=== PATIENT | male | born 1945 | race African-American/Black ===

== ENCOUNTER 2016-08-02 16:10 | Inpatient (IN) ==
[2016-08-02 16:50] LABS: Basophils % 0.5 % (0.0-0.8); Hemoglobin 12.2 GM/DL (14.0-18.0); Immature Granulocytes % 0.2 %; Immature Granulocytes Absolute 0.01 #; Lymphocytes # 0.9 10*3/uL (1.4-4.0); Lymphocytes % 23.1 % (21.2-54.2); Mean Corpuscular Hemoglobin 27 PG (27-34); Mean Corpuscular Volume 83.1 FL (87-102); Mean Platelet Volume 11.6 FL (9.6-12.0); Monocytes # 0.5 10*3/uL (0.11-0.8); Monocytes % 12.4 % (1.7-12.7); Neutrophils # 2.5 10*3/uL (1.4-7.4); Neutrophils % 62.8 % (38.7-73.9); Platelet Count 173 T/CUMM (130-400); Red Blood Count 4.45 MC/CUMM (3.8-5.5); Red Cell Distribution Width 13.6 % (9.3-17.3)
[2016-08-02 17:14] LABS: Alanine Aminotransferase 27 U/L (16-61); Albumin 2.2 G/DL (3.4-5.0); Alkaline Phosphatase 101 U/L (45-117); Aspartate Amino Transferase 20 U/L (0-37); Blood Urea Nitrogen 23 MG/DL (7-18); Calcium 8.3 MG/DL (8.5-10.1); Glucose 414 MG/DL (74-106); Osmolality,Calculated 294.8 MOS/KG (273-304); Potassium 4.3 MMOL/L (3.5-5.1); Sodium 137 MMOL/L (136-145); Total Protein 6.1 G/DL (6.4-8.3)
[2016-08-02 17:23] LABS: Lactic Acid 0.9 MMOL/L (0.4-2.0)
--- NOTE | 2016-08-02 17:34 | EKG Report ---
Please refer to the EKG image. Final interpretation is pending.
--- NOTE | 2016-08-02 17:40 | CT Report ---
CT head/brain wo con INDICATION: Altered mental status/confusion The total DLP is 1042 mGy*cm. COMPARISON: Noncontrast CT head dated 02/07/2015 Technique: Serial axial tomographic images of the brain were obtained without the use of intravenous contrast. Dose reduction: This CT exam was performed using one or more of the following dose reduction techniques: Automated exposure control, automated adjustment of the mA and/or KV according to patient size, or use of iterative reconstruction technique. Findings: Moderate-advanced generalized atrophy is noted with mild prominence of the sulci and cortical volume loss. Periventricular white matter hypodensity changes are noted bilaterally which do not demonstrate mass effect and are nonspecific but favored to represent sequela of chronic microvascular ischemia. Punctate hypodensities are noted within the bilateral basal ganglia, which are nonspecific but similar to prior and most compatible with remote lacunar infarcts. There is no evidence of vascular territory infarct or acute intracranial hemorrhage. The mae-white matter differentiation is generally maintained. There is no hydrocephalus. The basilar cisterns are patent. The visualized paranasal sinuses, mastoid air cells and middle ear cavities are predominantly clear. The included orbits and their contents appear within normal limits. The visualized osseous structures and overlying soft tissues of the skull and face demonstrate no acute abnormality. IMPRESSION: No acute intracranial abnormality. Advanced changes of atrophy and sequela of chronic microvascular ischemia appear minimally progressed from prior. PROCEDURE INTERPRETED AT [facility] DEPARTMENT OF RADIOLOGY Final Report Signed by: Chetan Shepard
[2016-08-02 18:02] LABS: Apearance,Urine CLEAR (Clear); Bacteria,Urine Occasional /HPF (Few); Bilirubin,Urine Negative (Negative); Blood, Urine Negative (Negative); Glucose,Urine (UA) >=500 mg/dL (Negative); Ketones,Urine 5 mg/dL (Negative); Nitrite,Urine Negative (Negative); Protein,Urine >=500 MG/DL; RBC,Urine 2 /HPF (0-4); Urine Color Straw (Yellow); Urine Specific Gravity 1.012 (1.001-1.035); Urine Urobilinogen < 2.0 EU/DL (0.2-1.0); WBC,Urine 1 /HPF (0-6)
[2016-08-02 18:09] LABS: ABG Base Excess 3.8 MMOL/L (-2.5-2.5); ABG HCO3 27.8 MMOL/L (20-26); ABG Oxygen Saturation 97.2 % (95-100); ABG TCO2 25.6 MMOL/L (23-27); Allen Test Positive
[2016-08-02] MEDS ORDERED: INSULIN REGULAR 100 UNIT/ML IV STA (18:14)
[2016-08-02] MEDS ORDERED: INSULIN REGULAR 100 UNIT/ML ONE (18:19)
[2016-08-02 18:33] LABS: Barbiturates Screen,Urine Negative (Negative); Benzodiazepines Screen,Urine Negative (Negative); Cannabinoid Screen,Urine Negative (Negative); Opiate Screen,Urine Negative (Negative); Phencyclidine Screen,Urine Negative (Negative)
[2016-08-02] MEDS ORDERED: cloNIDine 0.1 MG TABLET PO STA (18:42)
[2016-08-02] MEDS ORDERED: cloNIDine 0.1 MG TABLET ONE (18:56)
--- NOTE | 2016-08-02 19:12 | XRay Report ---
Exam: XR chest 1V portable Indication: Altered mental status, confusion, cardiomegaly Comparison study: Prior chest radiograph 02/21/2016 Findings: Cardiac silhouette is mildly enlarged, similar to prior. Mediastinal contours appear within normal limits and stable from prior. There is no focal consolidation, pneumothorax or pleural effusion identified. Minimal perihilar interstitial prominence may represent atelectasis and/or scarring, which is slightly decreased in prominence when compared to prior. Impression: No acute cardiopulmonary process. Similar mild cardiomegaly. PROCEDURE INTERPRETED AT [facility] DEPARTMENT OF RADIOLOGY Final Report Signed by: Chetan Shepard
--- NOTE | 2016-08-02 20:17 | Hospitalist History & Physical ---
Assessment and Plan - Time spent with patient Time spent with patient: Greater than 30 minutes (1) Altered mental status Status: Acute Assessment and plan: Patient has an altered mental status. This may be in part secondary to hypertensive encephalopathy. He is also significantly hyperglycemic which will attempt to correct. Will continue to follow neuro checks, control blood sugar and blood pressure, continue aspirin therapy, obtain serial troponins. If his mental status remains altered that he may require further evaluation such as MRI of the brain, formal neurologic consultation. Further workup will be performed based on patient, response and results of the pending database. Current Visit: No (2) Hypertension, uncontrolled Status: Acute Assessment and plan: Patient has chronic essential hypertension which is currently uncontrolled and may be contributing to his encephalopathy. Will attempt to bring his systolic blood pressure to approximately 180 overnight and follow his neuro status. He will require continued adjustment in his medical regimen to obtain control on a long-term basis. Current Visit: No (3) Diabetes mellitus Status: Chronic Assessment and plan: Patient has diabetes mellitus which is currently uncontrolled. There is a question of compliance. Will resume his routine home therapy along with Accu- Cheks and sliding scale. Current Visit: Yes Qualifiers: Diabetes mellitus type: type 2 (4) Hyperlipidemia Status: Chronic Assessment and plan: We will continue his current medical regimen and obtain fasting lipid panel in the a.m. Current Visit: No Qualifiers: Hyperlipidemia type: unspecified Qualified Code(s): E78.5 - Hyperlipidemia , unspecified (5) Chronic kidney disease Status: Chronic Assessment and plan: We will avoid any nephrotoxic injury or insults. Will follow his renal function during his stay. Current Visit: Yes Qualifiers: Chronic kidney disease stage: stage 3 (moderate) Qualified Code(s): N18.3 - Chronic kidney disease, stage 3 (moderate) History of Present Illness Chief complaint: Confused History of present illness: Mr. Schumacher is a 71 year old -[place] male whose states that he has been having confusion since last however it worsened today. She is not sure that he has been taking his medications correctly. He denies any headache, visual or auditory disturbances, sinus congestion, sore throat, fever , chills, chest pain, shortness of breath, palpitations, syncope, presyncope, abdominal pain, nausea, vomiting, diarrhea, constipation, melena, hematochezia, hematemesis, dysuria, hematuria, focal motor weakness or paresthesias. His states he has had some difficulty controlling his urine since last as well. [facility]. Home Medications Medication Instructions Recorded Confirmed Type Amlodipine Besylate 10 mg PO DAILY 02/08/15 02/10/15 History Metoprolol Tartrate 100 mg PO BID 02/08/15 02/10/15 History Aspirin [Ecotrin] 81 mg PO DAILY 02/10/15 02/10/15 History Losartan Potassium [Cozaar] 100 mg PO DAILY 02/10/15 02/10/15 History Pantoprazole Tab [Protonix Tab] 40 mg PO DAILY 02/10/15 02/10/15 History Gabapentin Cap/Tab [Neurontin 100 mg PO TID capsule 02/14/15 Rx Cap/Tab] Insulin Glargine [Lantus] 15 unit SUBCUT BEDTIME injection 02/14/15 Rx Allergies Allergy/AdvReac Type Severity Reaction Status Date / Time penicillin G Allergy Unknown/Unable Verified 08/02/16 16:27 to obtain codeine AdvReac Mild Headache Verified 08/02/16 16:27 Medical,Surgical,& Family Hx - Medical History Cardio: History of: Cerebrovascular Disease, Hypertension No history of: Aneurysm, Cardiac Dysrhythmia, Congenital Heart Disease, CHF, CAD, NH, Pacemaker, PVD, Valvular Heart Disease Psychological: No history of: Anxiety Disorders, ADHD, Behavior Problems, Bipolar Disorder, Depression, Previous Suicide Attempt, Psychiatric/Substance Abuse Tx, Schizophrenia, Violent Behavior, Psychiatric Problems Neurology: History of: Peripheral Neuropathy, TIA, Vertigo No history of: Brain Aneurysm, Cerebral Hemorrhage, Cerebral Palsy, Dementia , Migraine, Multiple Sclerosis, Parkinson's Disease, Seizures, Neurologocal Cancer HEENT: History of: Ear Problem (hard of hearing.), Eye Problem (bilateral cataract surgery), Dental Problems No history of: Glaucoma, Oral Cancer Endocrine: History of: Diabetes Mellitus (IDDM) No history of: Adrenal Disease, Thyroid Disorder, Endocrine Cancer Rheumatology: History of;: Rheumatoid Arthritis, Rheumatological Problems No history of;: Fibromyalgia, Gout, Myasthenia Gravis, Psoriasis, Sjogrens, Systemic Lupus Erythematosus Respiratory: History of: Pneumonia No history of: Asthma, Bronchitis, COPD, Intubation, Obstructive Sleep Apnea , Pulmonary Embolism, Pulmonary Hypertension, Lung Cancer, Respiratory Problems Renal: No history of: Renal (Kidney) Cancer, Dialysis, Renal Failure, Renal Problems Genitourinary: No history of: Bladder Problem, Kidney Stones, Prostate Problems, Recurring Urinary Tract Infections, Genitourinary Cancer, Problems Gastrointestinal: No history of: Bowel Obstruction, Clostridium Difficile, Crohn's Disease, Diverticulitis/ Diverticulosis, Esophageal Varices, GERD, Gastrointestinal Bleed , Hemorrhoids, Hematochezia, Hepatitis, Liver Problems, Pancreatitis, Polyps, Ulcerative Colitis, Gastrointestinal Cancer, GI Problems Musculoskeletal: History of: Back/Neck Problems (neck), Herniated Disk, Musculoskeletal Problems (arthritis) No history of: Amputation, Degenerative Disk Disease, Osteoporosis, Musculoskeletal Cancer Hematology: No history of: Anemia, Blood Transfusion Reaction, Bleeding Problems, Clotting Problems, Sickle Cell Disease, Hematologic Cancer, Blood Disorders Reproductive: No histroy: Penile Disorder, Sexually Transmitted Disease Other: No history of: Anesthesia Reactions, Anaphylaxis, Cancer, Eczema, HIV, Malignant Hyperthermia, MRSA, Vancomycin-Resistant Enterococci, Skin Problems - Surgical History Cardiac Surgeries: Patient Denies: Femoral-Popliteal Bypass Graft, Cardiac Catheterization, Cardiac Surgery, Carotid Endarterectomy, Internal Defibrillator, Vascular Access Devices Thoracic Surgeries: Patient denies;: Kidney (Renal Surgery), Lithotripsy, Nephrectomy, Organ Transplant, Lobectomy Neurologic Surgeries: Patient denies: Brain Aneurysm, Cerebral Hemorrhage, Neurologic Surgery HEENT Surgeries: Surgical HX of: Eye Surgery (cataract) Patient denies: Carotid Endarterectomy, Thyroid Surgery, Tonsilectomy & Adenoidectomy Abdominal Surgeries: Patient denies: Abdominal Surgery, Appendectomy, Cholecystectomy, Colonoscopy , Gastric Bypass Surgery, EGD, Hernia Repair, Splenectomy Reproductive Surgeries: Patient denies;: Cystoscopy, Genitourinary Surgery, Prostate Surgery, Vasectomy Orthopedic Surgeries: Patient denies;: Implanted Devices, Spinal Surgery, Total Hip Replacement, Total Knee Replacement - Family History Family History: Reports;: Family Anesthesia Reaction (maternal uncle), Family Cancer (paternal grandfather, maternal great aunt), Family Diabetes, Family Heart Disease (father and brother), Family Hypertension (mother), Family Stroke (mother, sister) Denies;: Family Psychiatric Problems - Social History Smoking Status: Current every day smoker Have you smoked in the last 12 months: Yes Time spent discussing smoking cessation with patient: 3 to 10 minutes Frequency of Alcohol Use: None Type of Drug Use: None Marital Status: Lives With:: Spouse Functional capacity: independent ambulation 12 point system: reviewed and no additional remarkable complaints except as stated Exam - Constitutional Vitals: Period Temp Pulse Resp BP Sys/Dixon Pulse Ox Last 24 Hr 98.2 F 73-81 18-21 174-227/84-159 98-100 General appearance: no acute distress - Head Head exam: Present: normocephalic, atraumatic - Eye Eye exam: Present: EOMI. Absent: scleral icterus Pupils: Present: PETER - ENT ENT exam: Present: normal exam, normal oropharynx - Neck Neck exam: Absent: lymphadenopathy, meningismus, tenderness, thyromegaly - Respiratory Respiratory exam: Present: clear to auscultation bilaterally. Absent: accessory muscle use, rales, rhonchi, wheezes - Cardiovascular Cardiovascular exam: Present: regular rate and rhythm. Absent: gallop, JVD, systolic murmur, tachycardia - GI/Abdominal GI/Abdominal exam: Present: normal bowel sounds, soft. Absent: distended, mass , tenderness, rebound - Extremities Exam Extremities exam: Absent: calf tenderness, edema - Back Exam Back exam: Present: normal inspection - Neurological Exam Neurological exam: Present: alert, CN II-XII intact, motor sensory deficit ( Decreased sensation of lower extremities to light touch), reflexes normal ( Patellar reflexes are depressed), other (He is oriented only to person. He believes he is at [facility], is the 1970[facility] and he is 61 years old) - Psychiatric Psychiatric exam: Present: normal affect, normal mood. Absent: agitated, anxious - Skin Skin exam: Present: warm, dry. Absent: erythema, petechiae, rash Results - Labs CBC & BMP: 08/02/16 16:43 08/02/16 16:43 Lab Results: I have reviewed the past 24 hour labs - EKG EKG shows: sinus rhythm - Diagnostic Findings Procedure: Chest x-ray: report reviewed by me, CT: report reviewed by me
[2016-08-02] MEDS ORDERED: ASPIRIN CHEW 81 MG TABLET PO STA (20:34)
[2016-08-02] MEDS ORDERED: ASPIRIN CHEW 81 MG TABLET PO ONE (20:42)
[2016-08-02] MEDS ORDERED: ONDANSETRON 4 MG/2 ML VIAL IV PRN (21:44)
[2016-08-02] MEDS ORDERED: hydrALAZINE 20 MG/1 ML VIAL IV PRN (21:44)
[2016-08-02] MEDS ORDERED: GLUCAGON 1 MG VIAL IM PRN (21:44)
[2016-08-02] MEDS: METOPROLOL TARTRATE 100 MG TABLET PO SCH (22:57)
[2016-08-02] MEDS: INSULIN LISPRO 100 UNIT/ML SUBCUT SCH (22:58)
[2016-08-02] MEDS: ENOXAPARIN 40 MG/0.4 ML SYRINGE SUBCUT SCH (22:58)
[2016-08-02] MEDS: INSULIN GLARGINE 100 UNIT/ML SUBCUT SCH (23:00)
[2016-08-03] MEDS ORDERED: NITROGLYCERIN 2% OINT 1 INCH/GM PACK TOP SCH
[2016-08-03 03:01] LABS: Basophils % 0.3 % (0.0-0.8); Eosinophils # 0.1 10*3/uL (0.0-0.87); Eosinophils % 1.4 % (0.00-10.9); Hematocrit 33.8 VOL% (42.0-52.0); Hemoglobin 10.9 GM/DL (14.0-18.0); Immature Granulocytes % 0.3 %; Immature Granulocytes Absolute 0.01 #; Lymphocytes # 1.5 10*3/uL (1.4-4.0); Lymphocytes % 40.8 % (21.2-54.2); Mean Corpuscular HGB Conc 32.2 GM/DL (32-36); Mean Corpuscular Hemoglobin 27 PG (27-34); Mean Corpuscular Volume 83.3 FL (87-102); Mean Platelet Volume 12.5 FL (9.6-12.0); Monocytes # 0.4 10*3/uL (0.11-0.8); Monocytes % 10.8 % (1.7-12.7); Neutrophils # 1.7 10*3/uL (1.4-7.4); Neutrophils % 46.4 % (38.7-73.9); Platelet Count 122 T/CUMM (130-400); Red Blood Count 4.06 MC/CUMM (3.8-5.5); Red Cell Distribution Width 13.6 % (9.3-17.3); White Blood Count 3.7 T/CUMM (4-12)
[2016-08-03 03:51] LABS: Alanine Aminotransferase 11 U/L (16-61); Alkaline Phosphatase 75 U/L (45-117); Aspartate Amino Transferase 12 U/L (0-37); Bilirubin,Total < 0.39 MG/DL (0.2-1.0); Blood Urea Nitrogen 20 MG/DL (7-18); Calcium 8.1 MG/DL (8.5-10.1); Cholesterol 335 MG/DL (50-200); Glucose 181 MG/DL (74-106); HDL Cholesterol 40 MG/DL (40-60); Osmolality,Calculated 290.1 MOS/KG (273-304); Risk Ratio 8.38; Sodium 142 MMOL/L (136-145); Thyroid Stimulating Hormone 0.462 uIU/ml (0.358-3.74); Total Protein 5.2 G/DL (6.4-8.3); Triglycerides 166 MG/DL (2-150); VLDL CHOLESTEROL 33.2 MG/DL
[2016-08-03 04:12] LABS: Platelet Estimate Adequate
[2016-08-03] MEDS ORDERED: POTASSIUM CHLORIDE 20 MEQ TABLET PO STA (05:06)
[2016-08-03] MEDS: ASPIRIN EC 81 MG TABLET PO SCH (09:29)
[2016-08-03] MEDS: PANTOPRAZOLE 40 MG TABLET PO SCH (09:29)
[2016-08-03] MEDS: METOPROLOL TARTRATE 100 MG TABLET PO SCH (09:29)
[2016-08-03] MEDS: amLODIPine 10 MG TABLET PO SCH (09:29)
[2016-08-03] MEDS: INSULIN LISPRO 100 UNIT/ML SUBCUT SCH ×4 (09:29→22:12)
--- NOTE | 2016-08-03 19:00 | CT Report ---
History his confusion, altered mental status Comparison 08/02/2016 There is diffuse atrophy There are moderate patchy white matter low densities present without acute intracranial hemorrhage or mass effects seen. Chronic lacunae in the basal ganglia noted area of motion artifact limits several of the images No acute cortical stroke identified Impression: Moderate patchy nonspecific white matter low densities most frequently associated with sequelae of microvascular disease The CT exam was performed using one or more of the following dose reduction techniques: Automated exposure control, adjustment of the mA and/or kV according to patient size, or use of iterative reconstruction technique. PROCEDURE INTERPRETED AT [facility] DEPARTMENT OF RADIOLOGY Final Report Signed by: Dr. Azra Black
--- NOTE | 2016-08-03 19:40 | Hospitalist Progress Note ---
Assessment and Plan (1) Hypokalemia Status: Acute Current Visit: Yes (2) Hypertension, uncontrolled Status: Chronic Assessment and plan: Uncontrolled blood pressure. Adding lisinopril 10 mg daily. Also continuing with Norvasc 10 mg. Adding hydralazine 50 mg 3 times daily. Making adjustments with metoprolol 50 mg twice daily given patient has bradycardia. Current Visit: No (3) IDDM (insulin dependent diabetes mellitus) Status: Chronic Current Visit: No (4) Rheumatoid arthritis Status: Chronic Current Visit: No (5) Diabetes mellitus Status: Chronic Current Visit: Yes Qualifiers: Diabetes mellitus type: type 2 Chronic kidney disease stage: stage 2 (mild ) Hospitalist: Subjective Interval history: Patient is resting comfortably. is at the bedside states he is much more comfortable. Of note patient's heart rate is still in the low 50s. Blood pressures noted to be elevated. He denies any other complaints today. No shortness of breath or chest pain. At this time will adjust metoprolol to 50 mg twice daily. Will also start lisinopril 10 mg daily. We will supplement dictation's potassium. Hydralazine 50 mg 3 times a day. Exam - Constitutional Vitals: Period Temp Pulse Resp BP Sys/Dixon Pulse Ox Last 24 Hr 97.9 F-98.1 F 45-63 18-20 141-170/83-90 90-100 General appearance: normal weight - Head Head exam: Present: normal inspection - Neck Neck exam: Present: normal inspection - Respiratory Respiratory exam: Present: clear to auscultation bilaterally - Cardiovascular Cardiovascular exam: Present: bradycardia - GI/Abdominal GI/Abdominal exam: Present: normal bowel sounds - Neurological Exam Neurological exam: Present: alert, oriented X3, CN II-XII intact - Psychiatric Psychiatric exam: Present: normal affect, normal mood Results - Labs CBC & BMP: 08/03/16 02:46 08/03/16 02:46
[2016-08-03] MEDS: INSULIN GLARGINE 100 UNIT/ML SUBCUT SCH (22:13)
[2016-08-03] MEDS: ENOXAPARIN 40 MG/0.4 ML SYRINGE SUBCUT SCH (22:15)
[2016-08-03] MEDS: METOPROLOL TARTRATE 50 MG TABLET PO SCH (22:15)
[2016-08-04 07:34] LABS: Basophils % 0.3 % (0.0-0.8); Eosinophils % 0.8 % (0.00-10.9); Hematocrit 38.4 VOL% (42.0-52.0); Hemoglobin 12.7 GM/DL (14.0-18.0); Immature Granulocytes % 0.3 %; Immature Granulocytes Absolute 0.01 #; Lymphocytes # 1.1 10*3/uL (1.4-4.0); Lymphocytes % 28.2 % (21.2-54.2); Mean Corpuscular HGB Conc 33.1 GM/DL (32-36); Mean Corpuscular Hemoglobin 27 PG (27-34); Mean Corpuscular Volume 81.7 FL (87-102); Mean Platelet Volume 12.1 FL (9.6-12.0); Monocytes # 0.3 10*3/uL (0.11-0.8); Monocytes % 8.1 % (1.7-12.7); Neutrophils # 2.3 10*3/uL (1.4-7.4); Neutrophils % 62.3 % (38.7-73.9); Red Cell Distribution Width 13.4 % (9.3-17.3); White Blood Count 3.7 T/CUMM (4-12)
[2016-08-04 07:37] LABS: Platelet Count 185 T/CUMM (130-400)
[2016-08-04 07:53] LABS: Calcium 8.3 MG/DL (8.5-10.1); Osmolality,Calculated 279.3 MOS/KG (273-304)
[2016-08-04] MEDS: PANTOPRAZOLE 40 MG TABLET PO SCH (08:48)
[2016-08-04] MEDS: INSULIN LISPRO 100 UNIT/ML SUBCUT SCH ×4 (08:48→21:34)
[2016-08-04] MEDS: amLODIPine 10 MG TABLET PO SCH (08:48)
[2016-08-04] MEDS: METOPROLOL TARTRATE 50 MG TABLET PO SCH ×2 (08:49→21:33)
[2016-08-04] MEDS: LISINOPRIL 10 MG TABLET PO SCH (08:49)
[2016-08-04] MEDS: ASPIRIN EC 81 MG TABLET PO SCH (08:49)
--- NOTE | 2016-08-04 08:49 | Hospitalist Progress Note ---
Assessment and Plan (1) Hypertension, uncontrolled Status: Chronic Current Visit: No (2) Diabetes mellitus Status: Chronic Assessment and plan: Hyperglycemia at admission with prerenal azotemia. Urinalysis shows heavy proteinuria at admission. Current Visit: Yes Qualifiers: Diabetes mellitus type: type 2 Chronic kidney disease stage: stage 2 (mild ) Hospitalist: Subjective Interval history: 71-year-old male hypertensive, diabetic presenting with hypertension, elevated serum creatinine and glucose with heavy proteinuria. His creatinine has normalized; blood sugars markedly improved and he is developed hypokalemia in association with his treatment. His reports that he had relapse of his previous mental confusion during the hospital stay with admission to hospital here in 2015 for encephalopathy. He has stable CT head (2) compared to 2015 study. Blood pressure medications have been adjusted with favorable response. Exam - Constitutional Vitals: Period Temp Pulse Resp BP Sys/Dixon Pulse Ox Last 24 Hr 97.6 F-98.7 F 54-58 19-22 164-195/81-88 96-99 General appearance: normal weight - Respiratory Respiratory exam: Present: clear to auscultation bilaterally. Absent: rales, rhonchi, wheezes - Cardiovascular Cardiovascular exam: Present: regular rate and rhythm - GI/Abdominal GI/Abdominal exam: Present: other - Neurological Exam Neurological exam: Present: alert. Absent: oriented X3 Results - Labs CBC & BMP: 08/04/16 06:48 08/04/16 06:48 - Diagnostic Findings Procedure: CT: report reviewed by me (CT scan of the head done 08/03 shows only microvascular changes.)
[2016-08-04] MEDS: POTASSIUM CHLORIDE 20 MEQ TABLET PO SCH ×7 (08:58→21:33)
--- NOTE | 2016-08-04 10:25 | Physician Query Form ---
CLICK EDIT DOCUMENT TO SELECT QUERY ANSWER --> OK --> SIGN Rebekah Correa RN Clinical Preparation Supervisor Freezing W) [phone] (f) [phone] [email or web address] PROVIDERS: Make your selection(s) from the choices in EACH section by typing an "x" and enter comments in the comment section. Please use your independent medical judgment in providing your response. This request does not imply that any particular answer is desired or expected. CLINCAL INDICATORS: (Providers should not edit this section) Based on documentation of "Acute hypertension uncontrolled" BP of 227/159. Treated with IV Apresoline. Note: Hypertensive crises can present as hypertensive urgency or hypertensive emergency. Clarify which, if any of the following, is a more accurate diagnosis reflecting the type and acuity of the documented hypertension: TYPE: ( ) Hypertensive Urgency ( ) Hypertensive Emergency ( x) Uncontrolled chronic hypertension at baseline ( ) Other, please specify: ( ) Clinically unable to determine COMMENTS: Criteria Source - Up to Date (This topic last updated: May 01, 2015) HYPERTENSIVE URGENCY: Severe hypertension (usually a diastolic blood pressure above 120 mmHg) in asymptomatic patients is referred to as hypertensive urgency. There is no proven benefit from rapid reduction in blood pressure in asymptomatic patients who have no evidence of acute end-organ damage and are at little short-term risk. HYPERTENSIVE EMERGENCY: Severe hypertension (usually a diastolic blood pressure above 120 mmHg) with evidence of acute end-organ damage is defined as a hypertensive emergency. A hypertensive emergency can be life threatening and requires immediate treatment, usually with parenteral medications in a monitored setting. PLEASE ALSO DOCUMENT RESPONSE IN PROGRESS NOTES AND/OR DISCHARGE SUMMARY Use of terms such as suspected, likely, or probable (associated with a specific diagnosis that is being evaluated, monitored, or treated as if it exists) are acceptable and can be restated in the discharge summary if not ruled out. MTDD
--- NOTE | 2016-08-04 10:28 | Physician Query Form ---
CLICK EDIT DOCUMENT TO SELECT QUERY ANSWER --> OK --> SIGN Rebekah Correa RN Clinical Ase Certified Technician W) [phone] (f) [phone] [email or web address] PROVIDERS: Make your selection(s) from the choices in EACH section by typing an "x" and enter comments in the comment section. Please use your independent medical judgment in providing your response. This request does not imply that any particular answer is desired or expected. CLINICAL INDICATORS: (Providers should not edit this section) Based on documentation of serum creatinine from 1.9 to 1.3. GFR form 54 to 83. History of CKD stage 3. Monitored with serial lab checks. Clarify which of the following most accurately represents the patient's renal status: ( ) Acute kidney injury (non-traumatic) ( ) Acute renal failure ( ) Acute renal failure with underlying Chronic Kidney Disease (CKD) - please provide stage below ( ) Acute renal failure with pathological renal lesion ( ) Acute renal failure with necrosis ( ) tubular ( ) medullary ( ) cortical ( ) CKD - please provide stage below ( ) End Stage Renal Disease ( ) Acute interstitial nephritis ( ) Hepatorenal syndrome ( x) Other, please specify: ( ) Clinically unable to determine Chronic Kidney Disease Stages Source: National Kidney Disease Foundation ( ) Stage I (eGFR > or = 90) ( ) Stage II (eGFR 60 - 89) ( ) Stage III (eGFR 30 - 59) ( ) Stage IV (eGFR 15 - 29) ( ) Stage V (eGFR < 15 or dialysis) COMMENTS:Pre renal azotemia PLEASE ALSO DOCUMENT RESPONSE IN PROGRESS NOTES AND/OR DISCHARGE SUMMARY Use of terms such as suspected, likely, or probable (associated with a specific diagnosis that is being evaluated, monitored, or treated as if it exists) are acceptable and can be restated in the discharge summary if not ruled out. MTDD
--- NOTE | 2016-08-04 10:31 | Physician Query Form ---
CLICK EDIT DOCUMENT TO SELECT QUERY ANSWER --> OK --> SIGN Rebekah Correa RN Clinical Outboard Technician W) [phone] (f) [phone] [email or web address] PROVIDERS: Make your selection(s) from the choices in EACH section by typing an "x" and enter comments in the comment section. Please use your independent medical judgment in providing your response. This request does not imply that any particular answer is desired or expected. CLINICAL INDICATORS: (Providers should not edit this section) Based on documentation of "Acute AMS . may be in part secondary to hypertensive encephalopathy" "Relapse of previous mental confusion" Please check all that apply to reason for AMS and the acuity. ACUITY: ( ) Acute ( ) Acute on Chronic (x ) Chronic ( ) Clinically unable to determine NATURE: ( ) Delirium due to general medical condition (x ) Dementia ( ) Encephalopathy ( ) Unconscious ( ) Transient level of awareness ( ) Comatose ( ) Locked-in State ( ) Persistent Vegetative State ( ) Other, please specify: ( ) Clinically unable to determine Please indicate the underlying cause of the altered mental status (CHECK ALL THAT APPLY): (x ) Baseline dementia ( ) Alzheimer's disease ( ) Parkinson's disease ( ) Lewy body dementia ( ) Acute stroke ( ) Late effect of stroke ( ) Reactive (from emotional stress, psychological trauma) ( ) Due to narcotics/other drugs ( ) Post procedural delirium ( ) Transient ischemic attack ( ) Generalized cerebral edema ( ) Normal pressure hydrocephalus ( ) Psychiatric illness ( ) Other, please specify: ( ) Clinically unable to determine Please indicate if there is an infection, sepsis, dehydration or specific organ failure that is causing the dementia. Be specific with clarifying the relationship between that process and the mental status change. COMMENTS: PLEASE ALSO DOCUMENT RESPONSE IN PROGRESS NOTES AND/OR DISCHARGE SUMMARY Use of terms such as suspected, likely, or probable (associated with a specific diagnosis that is being evaluated, monitored, or treated as if it exists) are acceptable and can be restated in the discharge summary if not ruled out. MTDD
[2016-08-04] MEDS: ENOXAPARIN 40 MG/0.4 ML SYRINGE SUBCUT SCH (21:33)
[2016-08-04] MEDS: INSULIN GLARGINE 100 UNIT/ML SUBCUT SCH (21:33)
[2016-08-05] MEDS ORDERED: ZIPRASIDONE 20 MG/1 ML VIAL IM PRN (01:59)
[2016-08-05 05:58] LABS: Calcium 8.4 MG/DL (8.5-10.1); Magnesium 2.3 MG/DL (1.8-2.4); Osmolality,Calculated 280.3 MOS/KG (273-304); Potassium 4.5 MMOL/L (3.5-5.1)
[2016-08-05] MEDS: DEXTROSE 50% 25 GM/50 ML VIAL IV PRN (06:46)
--- NOTE | 2016-08-05 08:08 | Hospitalist Progress Note ---
Assessment and Plan (1) Hypertension, uncontrolled Status: Chronic Current Visit: No (2) Diabetes mellitus Status: Chronic Assessment and plan: Hyperglycemia at admission with prerenal azotemia. Urinalysis shows heavy proteinuria at admission. Current Visit: Yes Qualifiers: Diabetes mellitus type: type 2 Chronic kidney disease stage: stage 2 (mild ) (3) Dementia Status: Chronic Assessment and plan: Probable element of intermittent delirium. Will consider discontinuing as needed treatments for consistent bedtime medication. Current Visit: Yes Hospitalist: Subjective Interval history: 71-year-old male hypertension diabetes who presented with hypertensive blood pressure readings elevated serum creatinine level and hyperglycemia. His urinalysis is showing heavy proteinuria urine protein creatinine ratio is pending. With treatment of his blood pressure and blood sugars his serum creatinine responded well. He has had been episodes of contusion Recurred during the hospital stay. He was evaluated here in 2014 for encephalopathy and over this. His had 3 CT scans of the head with and shown no acute process. Blood pressure medications were adjusted and blood pressure response is been better. Capillary blood glucose has improved and I suspect compliance issues with both his diabetic and antihypertensive care at home. This morning he is moderately sedated he was placed on as needed Geodon for his confusion without sedative use at home. Exam - Constitutional Vitals: Period Temp Pulse Resp BP Sys/Dixon Pulse Ox Last 24 Hr 98.0 F-98.6 F 50-68 16-22 145-181/70-86 96-100 General appearance: normal weight - Respiratory Respiratory exam: Present: clear to auscultation bilaterally. Absent: rales, rhonchi, wheezes - Cardiovascular Cardiovascular exam: Present: regular rate and rhythm - GI/Abdominal GI/Abdominal exam: Present: normal bowel sounds. Absent: tenderness - Extremities Exam Extremities exam: Absent: edema - Neurological Exam Neurological exam: Absent: alert Results - Labs CBC & BMP: 08/04/16 06:48 08/05/16 04:53
[2016-08-05] MEDS: INSULIN LISPRO 100 UNIT/ML SUBCUT SCH ×3 (09:31→16:15)
[2016-08-05] MEDS ORDERED: SKIN HEALING OINT (AQUAPHOR) 50 GM TUBE TOP PRN (12:56)
[2016-08-05] MEDS: POTASSIUM CHLORIDE 20 MEQ TABLET PO SCH (15:04)
[2016-08-05] MEDS: LISINOPRIL 10 MG TABLET PO SCH (15:04)
[2016-08-05] MEDS: METOPROLOL TARTRATE 50 MG TABLET PO SCH (15:05)
[2016-08-05] MEDS: ASPIRIN EC 81 MG TABLET PO SCH (15:05)
[2016-08-05] MEDS: PANTOPRAZOLE 40 MG TABLET PO SCH (15:07)
[2016-08-05] MEDS: ENOXAPARIN 40 MG/0.4 ML SYRINGE SUBCUT SCH (21:15)
[2016-08-05] MEDS: OLANZapine 5 MG TABLET PO SCH (21:15)
[2016-08-05] MEDS: METOPROLOL TARTRATE 25 MG TABLET PO SCH (21:15)
[2016-08-06] MEDS: INSULIN LISPRO 100 UNIT/ML SUBCUT SCH ×5 (01:01→21:19)
[2016-08-06] MEDS: METOPROLOL TARTRATE 50 MG TABLET PO SCH (01:01)
[2016-08-06] MEDS: INSULIN GLARGINE 100 UNIT/ML SUBCUT SCH ×2 (01:01→21:19)
[2016-08-06 06:54] LABS: Calcium 8.6 MG/DL (8.5-10.1); Osmolality,Calculated 284.1 MOS/KG (273-304); Potassium 4.1 MMOL/L (3.5-5.1)
--- NOTE | 2016-08-06 07:51 | Hospitalist Progress Note ---
Assessment and Plan (1) Hypertension, uncontrolled Status: Chronic Assessment and plan: Gradual transition away from the use of beta blockers due to excessive sinus slowing with single episode of SA chuy block. The currently reports he has had a chronic hacking cough since he has been on lisinopril and will need to discontinue this substituting an ARB. We have increased his dihydropyridine calcium antagonist as well as his hydralazine. Current Visit: No (2) Diabetes mellitus Status: Chronic Assessment and plan: Hyperglycemia at admission with prerenal azotemia. Urinalysis shows heavy proteinuria at admission. Current Visit: Yes Qualifiers: Diabetes mellitus type: type 2 Chronic kidney disease stage: stage 2 (mild ) (3) Dementia Status: Chronic Assessment and plan: Probable element of intermittent delirium. Will consider discontinuing as needed treatments for consistent bedtime medication. Current Visit: Yes Hospitalist: Subjective Interval history: 71-year-old male diabetes mellitus with hypertension who presented with marked increase in blood pressure associated with elevated blood sugars. His serum creatinine was elevated as well. His urinalysis shows heavy proteinuria with his protein creatinine ratio currently pending his blood glucose regulation has been much better as well. Patient was identified as having a sinus bradycardia on Lopressor and gradual reduction of the dose is been undertaken heart rate is begun to increase although yesterday he did have an episode of SA chuy block transiently. Patient has a chronic dementia which has been progressive with probable superimposed delirium. He has been worked up several times since initially identified in 2014 with a microvascular encephalopathy been documented on each occasion. Patient last night tolerated Zyprexa and slept through the night and appears less confused this morning. The family is reconsidered a geriatric psych referral at this time. Exam - Constitutional Vitals: Period Temp Pulse Resp BP Sys/Dixon Pulse Ox Last 24 Hr 98.1 F-98.9 F 55-72 18-20 134-195/74-95 96-98 General appearance: normal weight - Respiratory Respiratory exam: Present: clear to auscultation bilaterally. Absent: rales, rhonchi, wheezes - Cardiovascular Cardiovascular exam: Present: regular rate and rhythm - GI/Abdominal GI/Abdominal exam: Present: normal bowel sounds. Absent: tenderness - Extremities Exam Extremities exam: Absent: edema - Neurological Exam Neurological exam: Present: alert. Absent: oriented X3 Results - Labs CBC & BMP: 08/04/16 06:48 08/06/16 05:26
[2016-08-06] MEDS: VALSARTAN 80 MG TABLET PO SCH (09:05)
[2016-08-06] MEDS: ASPIRIN EC 81 MG TABLET PO SCH (09:05)
[2016-08-06] MEDS: PANTOPRAZOLE 40 MG TABLET PO SCH (09:05)
[2016-08-06] MEDS: METOPROLOL TARTRATE 25 MG TABLET PO SCH ×2 (09:06→21:17)
[2016-08-06] MEDS: amLODIPine 10 MG TABLET PO SCH (09:58)
[2016-08-06] MEDS: POTASSIUM CHLORIDE 20 MEQ TABLET PO SCH (09:59)
[2016-08-06] MEDS: OLANZapine 5 MG TABLET PO SCH (21:18)
[2016-08-06] MEDS: ENOXAPARIN 40 MG/0.4 ML SYRINGE SUBCUT SCH (21:19)
[2016-08-07] MEDS: INSULIN LISPRO 100 UNIT/ML SUBCUT SCH ×4 (09:01→21:55)
[2016-08-07] MEDS: METOPROLOL TARTRATE 25 MG TABLET PO SCH (10:01)
--- NOTE | 2016-08-07 11:05 | EKG Report ---
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
[2016-08-07] MEDS: VALSARTAN 80 MG TABLET PO SCH (11:17)
[2016-08-07] MEDS: PANTOPRAZOLE 40 MG TABLET PO SCH (11:18)
[2016-08-07] MEDS: ASPIRIN EC 81 MG TABLET PO SCH (11:20)
--- NOTE | 2016-08-07 15:31 | Cardiology Consult Note ---
Angel Miller Vanessa, RN, am scribing for, and in the presence of, Frankie Bautista MD 15:31. Assessment and Plan - Time spent with patient Time spent with patient: Greater than 30 minutes (Due to assessment, planning, documentation, medication review) (1) Bradycardia Status: Acute Assessment and plan: AV chuy blocking agents and rate lowering medications have been weaned and discontinued. Pulse rate has improved but does continue to have some transient bradycardia with pulse rate in the 50s. Current Visit: Yes (2) Chronic kidney disease Status: Chronic Assessment and plan: Creatinine is 1.4. ARBs have been favored in place of GINNY inhibitiors as he has had a dry hacking cough after initiation of lisinopril. Current Visit: Yes Qualifiers: Chronic kidney disease stage: stage 3 (moderate) Qualified Code(s): N18.3 - Chronic kidney disease, stage 3 (moderate) (3) Altered mental status Status: Acute Assessment and plan: Improved since admission. His sensorium is better, but he does continue to have periods of confusion and has required sedatives. He is being evaluated for placement [facility]. Current Visit: No (4) Dementia Status: Chronic Current Visit: Yes (5) Diabetes mellitus Status: Chronic Assessment and plan: Continue as present. Defer primary management to hospital medicine. Current Visit: Yes Qualifiers: Diabetes mellitus type: type 2 Chronic kidney disease stage: stage 2 (mild ) (6) Hyperlipidemia Status: Chronic Current Visit: No Qualifiers: Hyperlipidemia type: unspecified Qualified Code(s): E78.5 - Hyperlipidemia , unspecified (7) Hypertension, uncontrolled Status: Chronic Current Visit: No History of Present Illness - Data of Consult Patient: new to practice Consult date: 08/07/16 Requesting Physician: Jasmina Veliz - Consult Narrative Reason for consult: bradycardia History of present illness: PRIMARY DISASSEMBLER: DR. BAUTISTA (NEW) PCP: [facility] NOTE: BRADYCARDIA Mr. Schumacher is a 71 year old black male with risk factors significant for: Hypertension, diabetes, hyperlipidemia, family history of CAD, and tobacco use. 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 Patient was seen [facility] on August 02 after patient's noted him to be confused and answering questions inappropriately, and he had also apparently had some urinary incontinence over the past 3-4 days. Glucose was greater than 400, and proteinuria greater than 500. Blood pressure also uncontrolled as BP 227/159 in emergency room. Since admission to hospital, patient sensorium has improved overall, but he does continue to have periods of confusion and has required sedatives. Patient is being evaluated for [facility] placement. He has been noted to have sinus bradycardia while on Lopressor, and this has been weaned and discontinued. On August 05, patient noted to have transient 3.5 second pause. Cardiology is consulted for evaluation of bradycardia. Patient is a poor historian, and he and his have been for less than 1 year. Patient's is not very sure that all of patient's past medical history or medication use. Accurate ROS unobtainable, and HPI has been mostly gathered from chart and previous records. Mr. Schumacher is awake this afternoon, and he is calm at time of exam and interview. He denies previous formal cardiac evaluation. He tells me he has not had any recent or current chest pain, shortness of breath, or other anginal complaint. Denies orthopnea, PND, palpitation. He denies dizziness, blurred vision, or any recent falls. at bedside reports that patient did have an episode where he fell while walking to the bathroom, but that this happened greater than 1 year ago before they were . Twelve-lead EKG this morning shows sinus rhythm with pulse in the 60s, nonspecific ST-T changes but no acute ischemia. As his blood pressure has been continued, his pulse rate has overall improved and averages 60s and 70s with transient bradycardia noted in the overnight hours with pulse no less than 50. Systolic BP ranging 140-170 mmHg. Accu-Chek glucose is now less than 200. This patient is admitted with a history of mental status change which is been assumed to be related to hypoglycemia. He has been noted to be bradycardic and has episodic AV dissociation with a narrow escape. He has had slow rates into the 30s with some pauses but has been on significant AV chuy blocking agents and we are going to continue holding those and observe his rhythm. He has not had ralf syncope. I am going to check a Holter monitor to fully evaluate. CC: Jasmina Veliz MD - Home Medications and Allergies Home Medications: Home Medications Medication Instructions Recorded Confirmed Type Amlodipine Besylate 10 mg PO DAILY 02/08/15 08/03/16 History Metoprolol Tartrate 100 mg PO BID 02/08/15 08/03/16 History Aspirin [Ecotrin] 81 mg PO DAILY 02/10/15 02/10/15 History Losartan Potassium [Cozaar] 100 mg PO DAILY 02/10/15 08/03/16 History Pantoprazole Tab [Protonix Tab] 40 mg PO DAILY 02/10/15 02/10/15 History Gabapentin Cap/Tab [Neurontin 100 mg PO TID capsule 02/14/15 08/03/16 Rx Cap/Tab] Insulin Glargine [Lantus] 18 unit SUBCUT BEDTIME 08/02/16 08/03/16 History Metformin HCl 850 mg TID 08/03/16 History Allergies/Adverse Reactions: Allergies Allergy/AdvReac Type Severity Reaction Status Date / Time penicillin G Allergy Unknown/Unable Verified 08/02/16 16:27 to obtain codeine AdvReac Mild Headache Verified 08/02/16 16:27 Medical,Surgical,& Family Hx - Medical History Cardio: History of: Cerebrovascular Disease, Hypertension No history of: Aneurysm, Cardiac Dysrhythmia, Congenital Heart Disease, CHF, CAD, VA, Pacemaker, PVD, Valvular Heart Disease Psychological: No history of: Anxiety Disorders, ADHD, Behavior Problems, Bipolar Disorder, Depression, Previous Suicide Attempt, Psychiatric/Substance Abuse Tx, Schizophrenia, Violent Behavior, Psychiatric Problems Neurology: History of: Peripheral Neuropathy, TIA, Vertigo No history of: Brain Aneurysm, Cerebral Hemorrhage, Cerebral Palsy, Dementia , Migraine, Multiple Sclerosis, Parkinson's Disease, Seizures, Neurologocal Cancer HEENT: History of: Ear Problem (hard of hearing.), Eye Problem (bilateral cataract surgery), Dental Problems No history of: Glaucoma, Oral Cancer Endocrine: History of: Diabetes Mellitus (IDDM) No history of: Adrenal Disease, Thyroid Disorder, Endocrine Cancer Rheumatology: History of;: Rheumatoid Arthritis, Rheumatological Problems No history of;: Fibromyalgia, Gout, Myasthenia Gravis, Psoriasis, Sjogrens, Systemic Lupus Erythematosus Respiratory: History of: Pneumonia No history of: Asthma, Bronchitis, COPD, Intubation, Obstructive Sleep Apnea , Pulmonary Embolism, Pulmonary Hypertension, Lung Cancer, Respiratory Problems Renal: No history of: Renal (Kidney) Cancer, Dialysis, Renal Failure, Renal Problems Genitourinary: No history of: Bladder Problem, Kidney Stones, Prostate Problems, Recurring Urinary Tract Infections, Genitourinary Cancer, Problems Gastrointestinal: No history of: Bowel Obstruction, Clostridium Difficile, Crohn's Disease, Diverticulitis/ Diverticulosis, Esophageal Varices, GERD, Gastrointestinal Bleed , Hemorrhoids, Hematochezia, Hepatitis, Liver Problems, Pancreatitis, Polyps, Ulcerative Colitis, Gastrointestinal Cancer, GI Problems Musculoskeletal: History of: Back/Neck Problems (neck), Herniated Disk, Musculoskeletal Problems (arthritis) No history of: Amputation, Degenerative Disk Disease, Osteoporosis, Musculoskeletal Cancer Hematology: No history of: Anemia, Blood Transfusion Reaction, Bleeding Problems, Clotting Problems, Sickle Cell Disease, Hematologic Cancer, Blood Disorders Reproductive: No histroy: Penile Disorder, Sexually Transmitted Disease Other: No history of: Anesthesia Reactions, Anaphylaxis, Cancer, Eczema, HIV, Malignant Hyperthermia, MRSA, Vancomycin-Resistant Enterococci, Skin Problems - Surgical History Cardiac Surgeries: Patient Denies: Femoral-Popliteal Bypass Graft, Cardiac Catheterization, Cardiac Surgery, Carotid Endarterectomy, Internal Defibrillator, Vascular Access Devices Thoracic Surgeries: Patient denies;: Kidney (Renal Surgery), Lithotripsy, Nephrectomy, Organ Transplant, Lobectomy Neurologic Surgeries: Patient denies: Brain Aneurysm, Cerebral Hemorrhage, Neurologic Surgery HEENT Surgeries: Surgical HX of: Eye Surgery (cataract) Patient denies: Carotid Endarterectomy, Thyroid Surgery, Tonsilectomy & Adenoidectomy Abdominal Surgeries: Patient denies: Abdominal Surgery, Appendectomy, Cholecystectomy, Colonoscopy , Gastric Bypass Surgery, EGD, Hernia Repair, Splenectomy Reproductive Surgeries: Patient denies;: Cystoscopy, Genitourinary Surgery, Prostate Surgery, Vasectomy Orthopedic Surgeries: Patient denies;: Implanted Devices, Spinal Surgery, Total Hip Replacement, Total Knee Replacement - Family History Family History: Reports;: Family Anesthesia Reaction (maternal uncle), Family Cancer (paternal grandfather, maternal great aunt), Family Diabetes, Family Heart Disease (father and brother), Family Hypertension (mother), Family Stroke (mother, sister) Denies;: Family Psychiatric Problems - Social History Smoking Status: Current every day smoker Frequency of Alcohol Use: None Type of Drug Use: None Physical Examination Vital Signs Temp Pulse Resp BP Pulse Ox 98.2 F 73 18 174/84 98 08/02/16 16:20 08/02/16 16:20 08/02/16 16:20 08/02/16 16:20 08/02/16 16:20 General: Present: No Apparent Distress HEENT: Present: PERRL, Mucus Membranes Moist. Absent: Pallor Neck: Present: Supple Neck, Midline Trachea, No Masses, No Bruit Cardiac: Present: Reg Rate and Rhythm, No Murmur, Bradycardia (Transient) Lungs: Present: Clear Ascult./Percussion, No Wheeze, Rales, Rhonchi. Absent: Oxygen Neuro: Present: Grossly Intact. Absent: Numbness, Tingling, Weakness, Resting Tremor, Essential Tremor Abdomen: Present: Soft, Active Bowel Sounds. Absent: Ascites, Tender, Firm Skin: Present: Clear. Absent: Rash, Suspicious Lesions Extremities: Present: No Clubbing, No Cyanosis, No Edema, Normal Upper Extr. Pulses (2+ bilaterally), Normal Lower Extr. Pulses (2+ bilaterally), Capillary Refill (Normal) Result/EKG - Labs CBC & BMP: 08/04/16 06:48 08/06/16 05:26 Lab Results: I have reviewed the past 24 hour labs Labs: Laboratory Results - last 24 hr 08/06/16 08/06/16 08/07/16 15:28 20:25 06:39 POC Glucose 222 H 234 H 68 L 08/07/16 08/07/16 08/07/16 07:47 09:00 11:34 POC Glucose 176 H 118 H 92 - Diagnostic Findings Procedure: Chest x-ray: image reviewed by me, report reviewed by me - EKG EKG results: interpreted by me, no acute changes EKG shows: sinus rhythm IMichele Wesley, MD, personally performed the services described in this documentation, ascribed by Marta Ortiz RN in my presence, and it is both accurate and complete 531 .
--- NOTE | 2016-08-07 17:08 | Hospitalist Progress Note ---
Assessment and Plan (1) Hypertension, uncontrolled Status: Chronic Current Visit: No (2) Diabetes mellitus Status: Chronic Current Visit: Yes Qualifiers: Diabetes mellitus type: type 2 Chronic kidney disease stage: stage 2 (mild ) (3) Dementia Status: Chronic Current Visit: Yes Hospitalist: Subjective Interval history: Overnight with more episodes of bradycardia. Patient is intermittently confused , his is not aware of any cardiac history. Metoprolol has been being weaned down for the last few days. Will hold this am. Consulted cardiology. Exam - Constitutional Vitals: Period Temp Pulse Resp BP Sys/Dixon Pulse Ox Last 24 Hr 98.2 F-99.1 F 51-78 18-20 131-168/54-84 96-97 General appearance: normal weight - Head Head exam: Present: normocephalic, atraumatic - Eye Eye exam: Present: EOMI Pupils: Present: PETER - ENT ENT exam: Present: normal exam - Neck Neck exam: Present: normal inspection - Respiratory Respiratory exam: Present: clear to auscultation bilaterally - Cardiovascular Cardiovascular exam: Present: regular rate and rhythm - GI/Abdominal GI/Abdominal exam: Present: normal bowel sounds, soft. Absent: tenderness, rebound - Extremities Exam Extremities exam: Present: normal inspection - Back Exam Back exam: Present: normal inspection - Neurological Exam Neurological exam: Present: alert - Skin Skin exam: Present: warm, intact Results - Labs CBC & BMP: 08/04/16 06:48 08/06/16 05:26
[2016-08-07] MEDS: OLANZapine 5 MG TABLET PO SCH (21:53)
[2016-08-07] MEDS: ENOXAPARIN 40 MG/0.4 ML SYRINGE SUBCUT SCH (21:54)
[2016-08-07] MEDS: INSULIN GLARGINE 100 UNIT/ML SUBCUT SCH (21:55)
[2016-08-08 06:25] LABS: Basophils % 0.5 % (0.0-0.8); Eosinophils # 0.1 10*3/uL (0.0-0.87); Eosinophils % 2.1 % (0.00-10.9); Hemoglobin 12.2 GM/DL (14.0-18.0); Lymphocytes # 1.5 10*3/uL (1.4-4.0); Lymphocytes % 39.1 % (21.2-54.2); Mean Corpuscular HGB Conc 32.1 GM/DL (32-36); Mean Corpuscular Hemoglobin 27 PG (27-34); Mean Corpuscular Volume 83.2 FL (87-102); Mean Platelet Volume 11.5 FL (9.6-12.0); Monocytes # 0.4 10*3/uL (0.11-0.8); Neutrophils # 1.8 10*3/uL (1.4-7.4); Neutrophils % 48.3 % (38.7-73.9); Platelet Count 233 T/CUMM (130-400); Red Blood Count 4.57 MC/CUMM (3.8-5.5); Red Cell Distribution Width 14.4 % (9.3-17.3); White Blood Count 3.8 T/CUMM (4-12)
[2016-08-08 07:10] LABS: Calcium 8.8 MG/DL (8.5-10.1); Magnesium 2.2 MG/DL (1.8-2.4); Osmolality,Calculated 286.8 MOS/KG (273-304); Potassium 3.9 MMOL/L (3.5-5.1)
[2016-08-08] MEDS: INSULIN LISPRO 100 UNIT/ML SUBCUT SCH ×4 (07:45→20:39)
--- NOTE | 2016-08-08 08:41 | EKG Report ---
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
--- NOTE | 2016-08-08 09:34 | Cardiology Progress Note ---
Assessment and Plan (1) Bradycardia Status: Acute Assessment and plan: AV chuy blocking agents and rate lowering medications have been weaned and discontinued. Pulse rate has improved but does continue to have some transient bradycardia with pulse rate in the 50s. 08/08: His rhythm has been stable. He has no evidence of AV block and his rates are in the 70 range. He is less awake and aware this morning I think unrelated to his rhythm. Current Visit: Yes (2) Chronic kidney disease Status: Chronic Assessment and plan: Creatinine is 1.4. ARBs have been favored in place of GINNY inhibitiors as he has had a dry hacking cough after initiation of lisinopril. Current Visit: Yes Qualifiers: Chronic kidney disease stage: stage 3 (moderate) Qualified Code(s): N18.3 - Chronic kidney disease, stage 3 (moderate) (3) Altered mental status Status: Acute Assessment and plan: Improved since admission. His sensorium is better, but he does continue to have periods of confusion and has required sedatives. He is being evaluated for placement [facility]. 08/08: He is not as responsive today. He responds to pain and moves all extremities appropriately. He is for [facility] evaluation. Current Visit: No (4) Dementia Status: Chronic Current Visit: Yes (5) Diabetes mellitus Status: Chronic Assessment and plan: Continue as present. Defer primary management to hospital medicine. Current Visit: Yes Qualifiers: Diabetes mellitus type: type 2 Chronic kidney disease stage: stage 2 (mild ) (6) Hyperlipidemia Status: Chronic Current Visit: No Qualifiers: Hyperlipidemia type: unspecified Qualified Code(s): E78.5 - Hyperlipidemia , unspecified (7) Hypertension, uncontrolled Status: Chronic Current Visit: No Cardiology - PN: Subj Interval history: Patient is a little less responsive this morning. The says that he is responding appropriately and that his mental status is essentially unchanged. We will continue close follow-up related to history of bradycardia arrhythmia Exam (Progress Note) - Constitutional Vitals: Period Temp Pulse Resp BP Sys/Dixon Pulse Ox Last 24 Hr 97.5 F-99.3 F 62-75 18-20 132-163/65-84 90-96 Exam: General:no acute distress. Responds to deep pain and with repeated verbal stimuli HEENT: no new lesions, sclerae are clear, mouth and pharynx benign Neck: supple, trachea midline, no JVD noted Lungs: no rales ronchi or wheeze is noted. pt comfortable without accesory muscle use to assist with breathing CV: RRR no murmur rub or gallop is noted. Abd: soft and nontender, BSNA, no masses. Ext: no cyanosis, clubbing or edema Neuro: grossly intact without focal neurologic deficit. Result/EKG - Labs CBC & BMP: 08/08/16 05:58 08/08/16 05:58 Labs: Laboratory Results - last 24 hr 08/07/16 08/07/16 08/07/16 11:34 16:24 21:56 WBC RBC Hgb Hct MCV MCH MCHC RDW Plt Count MPV Neut % (Auto) Lymph % (Auto) [place] % (Auto) Eos % (Auto) Baso % (Auto) Neut # (Auto) Lymph # (Auto) [place] # (Auto) Eos # (Auto) Baso # (Auto) Immature Gran % Nucleated RBC % Immature Gran # Nucleated RBCs # Sodium Potassium Chloride Carbon Dioxide Anion Gap BUN Creatinine GFR Calculation BUN/Creatinine Ratio Glucose POC Glucose 92 218 H 68 L Calculated Osmolality Calcium Magnesium 08/08/16 08/08/16 08/08/16 00:33 05:58 05:58 WBC 3.8 L RBC 4.57 Hgb 12.2 L Hct 38.0 L MCV 83.2 L MCH 27 MCHC 32.1 RDW 14.4 Plt Count 233 D MPV 11.5 Neut % (Auto) 48.3 Lymph % (Auto) 39.1 [place] % (Auto) 10.0 Eos % (Auto) 2.1 Baso % (Auto) 0.5 Neut # (Auto) 1.8 Lymph # (Auto) 1.5 [place] # (Auto) 0.4 Eos # (Auto) 0.1 Baso # (Auto) 0.0 Immature Gran % 0.0 Nucleated RBC % 0.0 Immature Gran # 0.00 Nucleated RBCs # 0.00 Sodium 144 Potassium 3.9 Chloride 108 H Carbon Dioxide 26 Anion Gap 13.9 BUN 22 H Creatinine 1.80 H GFR Calculation 56 BUN/Creatinine Ratio 12.00 Glucose 71 L POC Glucose 114 H Calculated Osmolality 286.8 Calcium 8.8 Magnesium 2.2 08/08/16 07:43 WBC RBC Hgb Hct MCV MCH MCHC RDW Plt Count MPV Neut % (Auto) Lymph % (Auto) [place] % (Auto) Eos % (Auto) Baso % (Auto) Neut # (Auto) Lymph # (Auto) [place] # (Auto) Eos # (Auto) Baso # (Auto) Immature Gran % Nucleated RBC % Immature Gran # Nucleated RBCs # Sodium Potassium Chloride Carbon Dioxide Anion Gap BUN Creatinine GFR Calculation BUN/Creatinine Ratio Glucose POC Glucose 67 L Calculated Osmolality Calcium Magnesium
[2016-08-08] MEDS: VALSARTAN 80 MG TABLET PO SCH (09:56)
[2016-08-08] MEDS: ASPIRIN EC 81 MG TABLET PO SCH (09:57)
[2016-08-08] MEDS: PANTOPRAZOLE 40 MG TABLET PO SCH (09:57)
--- NOTE | 2016-08-08 16:05 | Hospitalist Progress Note ---
Assessment and Plan (1) Hypertension, uncontrolled Status: Chronic Current Visit: No (2) Diabetes mellitus Status: Chronic Current Visit: Yes Qualifiers: Diabetes mellitus type: type 2 Chronic kidney disease stage: stage 2 (mild ) (3) Dementia Status: Chronic Current Visit: Yes Hospitalist: Subjective Interval history: No acute events overnight. Patient more awake for me this afternoon than yesterday, oriented to person and place. His brother is in the room with him. Reports that he finished his complete lunch tray. Exam - Constitutional Vitals: Period Temp Pulse Resp BP Sys/Dixon Pulse Ox Last 24 Hr 97.5 F-99.3 F 62-75 18-20 127-151/59-76 90-95 General appearance: normal weight - Head Head exam: Present: normocephalic, atraumatic - Eye Eye exam: Present: EOMI Pupils: Present: PETER - ENT ENT exam: Present: normal exam - Neck Neck exam: Present: normal inspection - Respiratory Respiratory exam: Present: clear to auscultation bilaterally. Absent: wheezes - Cardiovascular Cardiovascular exam: Present: regular rate and rhythm - GI/Abdominal GI/Abdominal exam: Present: normal bowel sounds, soft. Absent: tenderness, rebound - Extremities Exam Extremities exam: Present: normal inspection - Back Exam Back exam: Present: normal inspection - Psychiatric Psychiatric exam: Present: normal affect, normal mood - Skin Skin exam: Present: warm, intact Results - Labs CBC & BMP: 08/08/16 05:58 08/08/16 05:58
[2016-08-08] MEDS: INSULIN GLARGINE 100 UNIT/ML SUBCUT SCH (20:39)
[2016-08-08] MEDS: ENOXAPARIN 40 MG/0.4 ML SYRINGE SUBCUT SCH (20:44)
[2016-08-08] MEDS: OLANZapine 5 MG TABLET PO SCH (22:35)
[2016-08-09 06:09] LABS: Basophils % 0.3 % (0.0-0.8); Eosinophils # 0.1 10*3/uL (0.0-0.87); Eosinophils % 2.7 % (0.00-10.9); Hemoglobin 11.8 GM/DL (14.0-18.0); Lymphocytes # 1.2 10*3/uL (1.4-4.0); Mean Corpuscular HGB Conc 31.9 GM/DL (32-36); Mean Corpuscular Hemoglobin 27 PG (27-34); Mean Corpuscular Volume 83.7 FL (87-102); Mean Platelet Volume 11.6 FL (9.6-12.0); Monocytes # 0.5 10*3/uL (0.11-0.8); Monocytes % 13.5 % (1.7-12.7); Neutrophils # 1.8 10*3/uL (1.4-7.4); Neutrophils % 50.5 % (38.7-73.9); Platelet Count 259 T/CUMM (130-400); Red Blood Count 4.42 MC/CUMM (3.8-5.5); Red Cell Distribution Width 14.4 % (9.3-17.3); White Blood Count 3.6 T/CUMM (4-12)
[2016-08-09 06:24] LABS: Calcium 8.8 MG/DL (8.5-10.1); Magnesium 2.3 MG/DL (1.8-2.4)
--- NOTE | 2016-08-09 10:12 | Cardiology Progress Note ---
Assessment and Plan (1) Bradycardia Status: Acute Assessment and plan: AV chuy blocking agents and rate lowering medications have been weaned and discontinued. Pulse rate has improved but does continue to have some transient bradycardia with pulse rate in the 50s. 08/08: His rhythm has been stable. He has no evidence of AV block and his rates are in the 70 range. He is less awake and aware this morning I think unrelated to his rhythm. 08/09: His rhythm is normal without evidence of significant bradycardia. Current Visit: Yes (2) Chronic kidney disease Status: Chronic Assessment and plan: Creatinine is 1.4. ARBs have been favored in place of GINNY inhibitiors as he has had a dry hacking cough after initiation of lisinopril. Current Visit: Yes Qualifiers: Chronic kidney disease stage: stage 3 (moderate) Qualified Code(s): N18.3 - Chronic kidney disease, stage 3 (moderate) (3) Altered mental status Status: Acute Assessment and plan: Improved since admission. His sensorium is better, but he does continue to have periods of confusion and has required sedatives. He is being evaluated for placement [facility]. 08/08: He is not as responsive today. He responds to pain and moves all extremities appropriately. He is for [facility] evaluation. Current Visit: No (4) Dementia Status: Chronic Current Visit: Yes (5) Diabetes mellitus Status: Chronic Assessment and plan: Continue as present. Defer primary management to hospital medicine. Current Visit: Yes Qualifiers: Diabetes mellitus type: type 2 Chronic kidney disease stage: stage 2 (mild ) (6) Hyperlipidemia Status: Chronic Current Visit: No Qualifiers: Hyperlipidemia type: unspecified Qualified Code(s): E78.5 - Hyperlipidemia , unspecified (7) Hypertension, uncontrolled Status: Chronic Current Visit: No Cardiology - PN: Subj Interval history: Mr. Schumacher is more awake and alert this morning and answers questions appropriately. He is much clearer from a sensorium standpoint and his says he is nearing his baseline. Exam (Progress Note) - Constitutional Vitals: Period Temp Pulse Resp BP Sys/Dixon Pulse Ox Last 24 Hr 97.7 F-99 F 63-78 18-20 127-164/59-74 92-98 Exam: General:no acute distress. He is much more alert and oriented today HEENT: no new lesions, sclerae are clear, mouth and pharynx benign Neck: supple, trachea midline, no JVD noted Lungs: no rales ronchi or wheeze is noted. pt comfortable without accesory muscle use to assist with breathing CV: RRR no murmur rub or gallop is noted. Abd: soft and nontender, BSNA, no masses. Ext: no cyanosis, clubbing or edema Neuro: grossly intact without focal neurologic deficit. Result/EKG - Labs CBC & BMP: 08/09/16 05:20 08/09/16 05:20 Labs: Laboratory Results - last 24 hr 08/08/16 08/08/16 08/08/16 11:33 16:43 20:03 WBC RBC Hgb Hct MCV MCH MCHC RDW Plt Count MPV Neut % (Auto) Lymph % (Auto) [place] % (Auto) Eos % (Auto) Baso % (Auto) Neut # (Auto) Lymph # (Auto) [place] # (Auto) Eos # (Auto) Baso # (Auto) Immature Gran % Nucleated RBC % Immature Gran # Nucleated RBCs # Sodium Potassium Chloride Carbon Dioxide Anion Gap BUN Creatinine GFR Calculation BUN/Creatinine Ratio Glucose POC Glucose 144 H 268 H 162 H Calculated Osmolality Calcium Magnesium 08/09/16 08/09/16 08/09/16 05:20 05:20 09:10 WBC 3.6 L RBC 4.42 Hgb 11.8 L Hct 37.0 L MCV 83.7 L MCH 27 MCHC 31.9 L RDW 14.4 Plt Count 259 MPV 11.6 Neut % (Auto) 50.5 Lymph % (Auto) 33.0 [place] % (Auto) 13.5 H Eos % (Auto) 2.7 Baso % (Auto) 0.3 Neut # (Auto) 1.8 Lymph # (Auto) 1.2 L [place] # (Auto) 0.5 Eos # (Auto) 0.1 Baso # (Auto) 0.0 Immature Gran % 0.0 Nucleated RBC % 0.0 Immature Gran # 0.00 Nucleated RBCs # 0.00 Sodium 143 Potassium 4.0 Chloride 108 H Carbon Dioxide 25 Anion Gap 14.0 BUN 26 H Creatinine 1.80 H GFR Calculation 56 BUN/Creatinine Ratio 14.00 Glucose 78 POC Glucose 194 H Calculated Osmolality 288.0 Calcium 8.8 Magnesium 2.3
[2016-08-09] MEDS: VALSARTAN 80 MG TABLET PO SCH (10:40)
[2016-08-09] MEDS: ASPIRIN EC 81 MG TABLET PO SCH (10:40)
[2016-08-09] MEDS: PANTOPRAZOLE 40 MG TABLET PO SCH (10:41)
[2016-08-09] MEDS: INSULIN LISPRO 100 UNIT/ML SUBCUT SCH ×4 (10:42→20:54)
--- NOTE | 2016-08-09 15:34 | Hospitalist Progress Note ---
Assessment and Plan (1) Hypertension, uncontrolled Status: Chronic Current Visit: No (2) Diabetes mellitus Status: Chronic Current Visit: Yes Qualifiers: Diabetes mellitus type: type 2 Chronic kidney disease stage: stage 2 (mild ) (3) Dementia Status: Chronic Assessment and plan: reports that patient has been listless for the last few months, not interested in doing anything or going anywhere Continue zyprexa Start mirtazepine Current Visit: Yes Hospitalist: Subjective Interval history: reports that patient's niece stayed with him last night, he did not sleep well. This morning he was not as alert as previous but throughout the day has cleared. She reports that even before patient became sick he was showing disinterest in his usual activities. Considering swing bed placement Exam - Constitutional Vitals: Period Temp Pulse Resp BP Sys/Dixon Pulse Ox Last 24 Hr 97.2 F-99 F 63-78 16-20 119-164/59-74 92-98 General appearance: normal weight - Head Head exam: Present: normocephalic, atraumatic - Eye Eye exam: Present: EOMI Pupils: Present: PETER - ENT ENT exam: Present: normal exam - Neck Neck exam: Present: normal inspection - Respiratory Respiratory exam: Present: clear to auscultation bilaterally. Absent: rhonchi, wheezes - Cardiovascular Cardiovascular exam: Present: regular rate and rhythm - GI/Abdominal GI/Abdominal exam: Present: normal bowel sounds, soft. Absent: tenderness, rebound - Extremities Exam Extremities exam: Present: normal inspection - Back Exam Back exam: Present: normal inspection - Neurological Exam Neurological exam: Present: alert, oriented X3 - Psychiatric Psychiatric exam: Present: normal affect, normal mood - Skin Skin exam: Present: warm, intact Results - Labs CBC & BMP: 08/09/16 05:20 08/09/16 05:20
[2016-08-09] MEDS: MIRTAZAPINE 15 MG TABLET PO SCH (20:55)
[2016-08-09] MEDS: INSULIN GLARGINE 100 UNIT/ML SUBCUT SCH (20:55)
[2016-08-09] MEDS: OLANZapine 5 MG TABLET PO SCH (20:55)
[2016-08-09] MEDS: ENOXAPARIN 40 MG/0.4 ML SYRINGE SUBCUT SCH (20:56)
[2016-08-10 05:00] LABS: Basophils % 0.4 % (0.0-0.8); Eosinophils # 0.1 10*3/uL (0.0-0.87); Eosinophils % 2.4 % (0.00-10.9); Hematocrit 37.9 VOL% (42.0-52.0); Hemoglobin 12.1 GM/DL (14.0-18.0); Immature Granulocytes % 0.2 %; Immature Granulocytes Absolute 0.01 #; Lymphocytes # 2.1 10*3/uL (1.4-4.0); Lymphocytes % 43.1 % (21.2-54.2); Mean Corpuscular HGB Conc 31.9 GM/DL (32-36); Mean Corpuscular Hemoglobin 27 PG (27-34); Mean Corpuscular Volume 83.8 FL (87-102); Mean Platelet Volume 11.7 FL (9.6-12.0); Monocytes # 0.6 10*3/uL (0.11-0.8); Monocytes % 11.3 % (1.7-12.7); Neutrophils # 2.1 10*3/uL (1.4-7.4); Neutrophils % 42.6 % (38.7-73.9); Platelet Count 259 T/CUMM (130-400); Red Blood Count 4.52 MC/CUMM (3.8-5.5); Red Cell Distribution Width 14.1 % (9.3-17.3); White Blood Count 4.9 T/CUMM (4-12)
[2016-08-10 05:30] LABS: Calcium 9.1 MG/DL (8.5-10.1); Magnesium 2.3 MG/DL (1.8-2.4); Osmolality,Calculated 286.7 MOS/KG (273-304); Potassium 3.5 MMOL/L (3.5-5.1)
[2016-08-10] MEDS: INSULIN LISPRO 100 UNIT/ML SUBCUT SCH ×4 (09:48→20:03)
[2016-08-10] MEDS: VALSARTAN 80 MG TABLET PO SCH (09:49)
[2016-08-10] MEDS: ASPIRIN EC 81 MG TABLET PO SCH (09:49)
[2016-08-10] MEDS: PANTOPRAZOLE 40 MG TABLET PO SCH (09:50)
--- NOTE | 2016-08-10 11:05 | Cardiology Progress Note ---
Paul, Marta Ortiz RN, am scribing for, and in the presence of, Eduar Castaneda MD 10:56. Assessment and Plan - Time spent with patient Time spent with patient: Greater than 30 minutes (1) Bradycardia Status: Acute Assessment and plan: AV chuy blocking agents and rate lowering medications have been weaned and discontinued. Pulse rate has improved and he remais in the 70s. Holter monitoring over the weekend revealed average pulse rate 73, rare PAC/PVC, but no sustained tachycardia or bradycardia. Current Visit: Yes (2) Chronic kidney disease Status: Chronic Assessment and plan: Creatinine is 1.6. ARBs have been favored in place of GINNY inhibitiors as he has had a dry hacking cough after initiation of lisinopril. Current Visit: Yes Qualifiers: Chronic kidney disease stage: stage 3 (moderate) Qualified Code(s): N18.3 - Chronic kidney disease, stage 3 (moderate) (3) Altered mental status Status: Acute Assessment and plan: Improved since admission. His sensorium is better, but he does continue to have periods of confusion and has required sedatives. He is being evaluated for swing bed placement, and then possible placement at [facility] facility pending improvement of psych status. Current Visit: No (4) Hypertension, uncontrolled Status: Chronic Assessment and plan: Blood pressure is now overall fairly well controlled with systolic pressure ranging 130-155 mmHg. Can continue as present. Current Visit: No (5) Diabetes mellitus Status: Chronic Assessment and plan: Blood glucose on chemistry this morning 29. Follow-up Accu-Chek 107 after receiving D50 1 amp and orange juice. Will leave this therapy to the primary service. Current Visit: Yes Qualifiers: Diabetes mellitus type: type 2 Chronic kidney disease stage: stage 2 (mild ) (6) Hyperlipidemia Status: Chronic Assessment and plan: This patient lipids on 08/03/16 was significantly elevated with a total cholesterol 335 LDL of 251 and HDL 40. This patient should have his lipids treated. I am not aware of any issues with prior statins. This patient is also diabetic. I think we should start him on rosuvastatin. Current Visit: No Qualifiers: Hyperlipidemia type: unspecified Qualified Code(s): E78.5 - Hyperlipidemia , unspecified Cardiology - PN: Subj Interval history: PRIMARY ORE SMELTER: DR. MILLER ([facility]) PCP: [facility] SUMMARY: Mr. Schumacher is a 71 year old black male with risk factors significant for: Hypertension, diabetes, hyperlipidemia, family history of CAD, and tobacco use. 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 Patient was seen [facility] on August 02 after patient's noted him to be confused and answering questions inappropriately, and he had also apparently had some urinary incontinence over the past 3-4 days. Glucose was greater than 400, and proteinuria greater than 500. Blood pressure also uncontrolled as BP 227/159 in emergency room. Since admission to hospital, patient sensorium has improved overall, but he does continue to have periods of confusion and has required sedatives. Patient is being evaluated for [facility] placement. He has been noted to have sinus bradycardia while on Lopressor, and this has been weaned and discontinued. On August 05, patient noted to have transient 3.5 second pause. Cardiology is consulted for evaluation of bradycardia. telemetry monitor also revealed episode of AV dissociation with a narrow escape. He has had pulse rates into the 30s with some pauses but no significant AV chuy blocking agents have been in use. July: He is awake this morning, makes eye contact, he does not offer much verbal response. Patient's is present, and she is attempting to assist him with eating breakfast, but at this time patient is trying to get out of bed. Cardiac monitoring with sinus rhythm, pulse rate 60s and 70s, no significant bradycardia, ectopy, AV block. Holter monitoring revealed no significant tachycardia or bradycardia. No chest pain or shortness of breath. Systolic BP 130-155 mmHg. Labs reviewed. H&H is stable, K+ 3.5, Mg +2.3, creatinine 1.6 with a GFR of 64. Hypoglycemic with glucose of 29 earlier this morning with recheck 121. He is being evaluated for swing bed and/or [facility] placement. During from cardiac standpoint is stable now with his heart rates much better with decreasing his metoprolol. His Holter reported today reveals that his mental heart rate is 61 bpm with a maximum heart rate 92 bpm. This essentially bed rest. His average heart was 73 bpm. No pauses demonstrated. The full report is in his chart. Exam (Progress Note) - Constitutional Vitals: Period Temp Pulse Resp BP Sys/Dixon Pulse Ox Last 24 Hr 97.2 F-98.5 F 67-78 14-20 119-156/52-76 92-95 Exam: General: Present: No Apparent Distress HEENT: Present: PERRL, Mucus Membranes Moist. Absent: Pallor Neck: Present: Supple Neck, Midline Trachea, No Masses, No Bruit Cardiac: Present: Reg Rate and Rhythm, No Murmur, No bradycardia Lungs: Present: Clear Ascult./Percussion, No Wheeze, Rales, Rhonchi. Absent: Oxygen Neuro: Present: Grossly Intact. Absent: Numbness, Tingling, Weakness, Resting Tremor, Essential Tremor Abdomen: Present: Soft, Active Bowel Sounds. Absent: Ascites, Tender, Firm Skin: Present: Clear. Absent: Rash, Suspicious Lesions Extremities: Present: No Clubbing, No Cyanosis, No Edema, Normal Upper Extr. Pulses (2+ bilaterally), Normal Lower Extr. Pulses (2+ bilaterally), Capillary Refill (Normal) Psych: Does not appear to be anxious. He will make eye contact but does not offer much verbal response. He will follow some commands. Result/EKG - Labs CBC & BMP: 08/10/16 03:32 08/10/16 03:32 Lab Results: I have reviewed the past 24 hour labs Labs: Laboratory Results - last 24 hr 08/09/16 08/09/16 08/09/16 09:10 11:15 16:15 WBC RBC Hgb Hct MCV MCH MCHC RDW Plt Count MPV Neut % (Auto) Lymph % (Auto) [place] % (Auto) Eos % (Auto) Baso % (Auto) Neut # (Auto) Lymph # (Auto) [place] # (Auto) Eos # (Auto) Baso # (Auto) Immature Gran % Nucleated RBC % Immature Gran # Nucleated RBCs # Sodium Potassium Chloride Carbon Dioxide Anion Gap BUN Creatinine GFR Calculation BUN/Creatinine Ratio Glucose POC Glucose 194 H 187 H 189 H Calculated Osmolality Calcium Magnesium 08/09/16 08/09/16 08/10/16 19:47 20:11 03:32 WBC 4.9 D RBC 4.52 Hgb 12.1 L Hct 37.9 L MCV 83.8 L MCH 27 MCHC 31.9 L RDW 14.1 Plt Count 259 MPV 11.7 Neut % (Auto) 42.6 Lymph % (Auto) 43.1 [place] % (Auto) 11.3 Eos % (Auto) 2.4 Baso % (Auto) 0.4 Neut # (Auto) 2.1 Lymph # (Auto) 2.1 [place] # (Auto) 0.6 Eos # (Auto) 0.1 Baso # (Auto) 0.0 Immature Gran % 0.2 Nucleated RBC % 0.0 Immature Gran # 0.01 Nucleated RBCs # 0.00 Sodium Potassium Chloride Carbon Dioxide Anion Gap BUN Creatinine GFR Calculation BUN/Creatinine Ratio Glucose POC Glucose 227 H 190 H Calculated Osmolality Calcium Magnesium 08/10/16 08/10/16 08/10/16 03:32 05:49 05:57 WBC RBC Hgb Hct MCV MCH MCHC RDW Plt Count MPV Neut % (Auto) Lymph % (Auto) [place] % (Auto) Eos % (Auto) Baso % (Auto) Neut # (Auto) Lymph # (Auto) [place] # (Auto) Eos # (Auto) Baso # (Auto) Immature Gran % Nucleated RBC % Immature Gran # Nucleated RBCs # Sodium 145 Potassium 3.5 Chloride 108 H Carbon Dioxide 28 Anion Gap 12.5 BUN 22 H Creatinine 1.60 H GFR Calculation 64 BUN/Creatinine Ratio 13.00 Glucose 29 L* POC Glucose 217 H 172 H Calculated Osmolality 286.7 Calcium 9.1 Magnesium 2.3 08/10/16 08/10/16 08/10/16 06:28 06:50 07:29 WBC RBC Hgb Hct MCV MCH MCHC RDW Plt Count MPV Neut % (Auto) Lymph % (Auto) [place] % (Auto) Eos % (Auto) Baso % (Auto) Neut # (Auto) Lymph # (Auto) [place] # (Auto) Eos # (Auto) Baso # (Auto) Immature Gran % Nucleated RBC % Immature Gran # Nucleated RBCs # Sodium Potassium Chloride Carbon Dioxide Anion Gap BUN Creatinine GFR Calculation BUN/Creatinine Ratio Glucose POC Glucose 126 H 121 H 107 H Calculated Osmolality Calcium Magnesium - Impressions Impressions: His telemetry and Holter reveal sinus rhythm without any significant bradycardia arrhythmias. - Diagnostic Findings Procedure: Chest x-ray: image reviewed by me, report reviewed by me - EKG EKG results: interpreted by me, no acute changes EKG shows: sinus rhythm Leonel Miller John Timothy, MD, personally performed the services described in this documentation, ascribed by Marta Ortiz RN in my presence, and it is both accurate and complete .
--- NOTE | 2016-08-10 13:17 | Hospitalist Progress Note ---
Assessment and Plan (1) Hypertension, uncontrolled Status: Chronic Current Visit: No (2) Diabetes mellitus Status: Chronic Current Visit: Yes Qualifiers: Diabetes mellitus type: type 2 Chronic kidney disease stage: stage 2 (mild ) (3) Dementia Status: Chronic Assessment and plan: reports that patient has been listless for the last few months, not interested in doing anything or going anywhere Continue zyprexa Continue mirtazepine [facility] to evaluate Current Visit: Yes Hospitalist: Subjective Interval history: Patient's reports that patient did not sleep well last night. This morning he is awake and alert, wants his bed to be let down. [facility]. Exam - Constitutional Vitals: Period Temp Pulse Resp BP Sys/Dixon Pulse Ox Last 24 Hr 96.8 F-98.5 F 60-78 14-20 87-156/52-76 93-96 General appearance: normal weight - Head Head exam: Present: normocephalic, atraumatic - Eye Eye exam: Present: EOMI Pupils: Present: PETER - ENT ENT exam: Present: normal exam - Neck Neck exam: Present: normal inspection - Respiratory Respiratory exam: Present: clear to auscultation bilaterally - Cardiovascular Cardiovascular exam: Present: regular rate and rhythm - GI/Abdominal GI/Abdominal exam: Present: normal bowel sounds, soft. Absent: tenderness, rebound - Extremities Exam Extremities exam: Present: normal inspection - Back Exam Back exam: Present: normal inspection - Neurological Exam Neurological exam: Present: alert, other (oriented to person only) - Psychiatric Psychiatric exam: Present: normal affect, normal mood - Skin Skin exam: Present: warm, intact Results - Labs CBC & BMP: 08/10/16 03:32 08/10/16 03:32
[2016-08-10] MEDS: OLANZapine 5 MG TABLET PO SCH (20:04)
[2016-08-10] MEDS: ENOXAPARIN 40 MG/0.4 ML SYRINGE SUBCUT SCH ×2 (20:04→20:46)
[2016-08-10] MEDS: MIRTAZAPINE 15 MG TABLET PO SCH (20:04)
[2016-08-10] MEDS: INSULIN GLARGINE 100 UNIT/ML SUBCUT SCH (20:46)
[2016-08-11] MEDS: DEXTROSE 50% 25 GM/50 ML VIAL IV PRN (07:30)
--- NOTE | 2016-08-11 07:40 | Cardiology Progress Note ---
Assessment and Plan (1) Bradycardia Status: Acute Assessment and plan: this is stable with his present medications and changes. No further evaluation is needed. We will sign off at this time. Please call if we can be of any further service. Current Visit: Yes (2) Chronic kidney disease Status: Chronic Assessment and plan: Chronic issue. Current Visit: Yes Qualifiers: Chronic kidney disease stage: stage 3 (moderate) Qualified Code(s): N18.3 - Chronic kidney disease, stage 3 (moderate) (3) Altered mental status Status: Acute Assessment and plan: not much changed since yesterday. Current Visit: No (4) Hypertension, uncontrolled Status: Chronic Assessment and plan: Blood pressure much better controlled at this time. We will continue present management. Current Visit: No (5) Diabetes mellitus Status: Chronic Assessment and plan: This is managed by the primary service. Current Visit: Yes Qualifiers: Diabetes mellitus type: type 2 Chronic kidney disease stage: stage 2 (mild ) (6) Hyperlipidemia Status: Chronic Assessment and plan: No changes recommended at this time. Current Visit: No Qualifiers: Hyperlipidemia type: unspecified Qualified Code(s): E78.5 - Hyperlipidemia , unspecified Cardiology - PN: Subj Interval history: Patient is doing generally about the same. He does make eye contact follow some commands. He said no acute cardiac events. Reviewing his cardiac strips he continues to be in sinus rhythm. He has had no dysrhythmias. His blood pressures are stable. General from a cardiac standpoint with have no ongoing issues. Patient stable his present medications and adjustments. I do not think any further cardiac evaluation is needed at this time. We will sign off but if we can be of any further service please feel free to call. Exam (Progress Note) - Constitutional Vitals: Period Temp Pulse Resp BP Sys/Dixon Pulse Ox Last 24 Hr 96.8 F-97.4 F 60-77 18-20 87-148/56-75 93-96 Exam: General: Present: No Apparent Distress HEENT: Present: PERRL, Mucus Membranes Moist. Absent: Pallor Neck: Present: Supple Neck, Midline Trachea, No Masses, No Bruit Cardiac: Present: Reg Rate and Rhythm, No Murmur, No bradycardia Lungs: Present: Clear Ascult./Percussion, No Wheeze, Rales, Rhonchi. Absent: Oxygen Neuro: Present: Grossly Intact. Absent: Resting Tremor, Essential Tremor. The patient does respond to some commands. Abdomen: Present: Soft, Active Bowel Sounds. Absent: Ascites, Tender, Firm Skin: Present: Clear. Absent: Rash, Suspicious Lesions Extremities: Present: No Clubbing, No Cyanosis, No Edema, Normal Upper Extr. Pulses (2+ bilaterally), Normal Lower Extr. Pulses (2+ bilaterally), Capillary Refill (Normal) Psych: Does not appear to be anxious. He was resting comfortably on my arrival. As noted above he does respond to commands and very little verbal response. Result/EKG - Labs CBC & BMP: 08/10/16 03:32 08/10/16 03:32 Labs: Laboratory Results - last 24 hr 08/10/16 08/10/16 08/10/16 06:50 11:39 15:15 POC Glucose 121 H 235 H 182 H 08/10/16 20:03 POC Glucose 133 H - Impressions Impressions: Telemetry continues reveals sinus rhythm without bradycardia or tachyarrhythmias.
[2016-08-11] MEDS ORDERED: ROSUVASTATIN 20 MG TABLET PO SCH (09:00)
[2016-08-11] MEDS: ASPIRIN EC 81 MG TABLET PO SCH (09:37)
[2016-08-11] MEDS: VALSARTAN 80 MG TABLET PO SCH (09:37)
[2016-08-11] MEDS: PANTOPRAZOLE 40 MG TABLET PO SCH (09:38)
--- NOTE | 2016-08-11 11:31 | Discharge Summary ---
Hospital Course - Hospital Course Hospital Course: Mr. Schumacher is a 71 year old -[place] male whose stated that he had been having confusion since last however it worsened today. She is not sure that he has been taking his medications correctly. His stated he had some difficulty controlling his urine since last as well. He was admitted to the hospitalist service for further evaluation. Patient has a chronic dementia which has been progressive with probable superimposed delirium. He has been worked up several times since initially identified in 2015 with a microvascular encephalopathy been documented on each occasion. His hyperglycemia and elevated blood pressure were controlled. He was started on zyprexa and mirtazepine with some mild improvemnt. He is still intermittently confused. Patient was identified as having a sinus bradycardia on Lopressor, which was weaned. Cardiology was consulted for evaluation. Lopressor was eventually discontinued, patient did not require cardiology intervention. He has now reached maximal benefit of inpatient stay and will be discharged to [facility]. - Time spent with patient Time with patient DS: Greater than 30 minutes (40) Diagnosis - Discharge Diagnosis (1) Hypertension, uncontrolled Status: Chronic (2) Diabetes mellitus Status: Chronic (3) Dementia Status: Chronic Discharge Plan - Discharge Data Discharge Diet: diabetic diet Activity: as per physical therapy Hygiene: no restrictions Weight Bearing at Discharge: weight bear as tolerated Contact your physician if you experience:: fever over 101, Shortness of breath - Discharge Medications New Metoprolol Tartrate Tab [Lopressor Tab] 25 mg PO BID tablet NIFEdipine XL TAB [Procardia Xl] 90 mg PO DAILY tablet OLANZapine TAB [ZyPREXA Tab] 5 mg PO BEDTIME tablet Ondansetron Inj [Zofran Inj] 4 mg IV Q4H PRN vial PRN Reason: Nausea Valsartan [Diovan] 40 mg PO DAILY tablet Insulin Glargine [Lantus] 42 unit SUBCUT BEDTIME unit Mirtazapine [Remeron] 15 mg PO BEDTIME tablet Rosuvastatin [Crestor] 40 mg PO DAILY tablet hydrALAZINE TAB [Apresoline Tab] 100 mg PO TID tablet Continue Aspirin [Ecotrin] 81 mg PO DAILY Pantoprazole Tab [Protonix Tab] 40 mg PO DAILY Discontinued Metoprolol Tartrate 100 mg PO BID Amlodipine Besylate 10 mg PO DAILY Losartan Potassium [Cozaar] 100 mg PO DAILY Insulin Glargine [Lantus] 18 unit SUBCUT BEDTIME Metformin HCl 850 mg TID Gabapentin Cap/Tab [Neurontin Cap/Tab] 100 mg PO TID capsule - Follow Up or Referral - Forms/Instructions Exam - Constitutional Vitals: Period Temp Pulse Resp BP Sys/Dixon Pulse Ox Last 24 Hr 96.8 F-98.8 F 69-77 18-20 87-154/61-75 95-98 General appearance: over weight - Head Head exam: Present: normocephalic, atraumatic - Eye Eye exam: Present: EOMI Pupils: Present: PETER - ENT ENT exam: Present: normal exam - Neck Neck exam: Present: normal inspection - Respiratory Respiratory exam: Present: clear to auscultation bilaterally. Absent: wheezes - Cardiovascular Cardiovascular exam: Present: regular rate and rhythm - GI/Abdominal GI/Abdominal exam: Present: normal bowel sounds, soft. Absent: tenderness, rebound - Extremities Exam Extremities exam: Present: normal inspection - Back Exam Back exam: Present: normal inspection - Neurological Exam Neurological exam: Present: alert - Psychiatric Psychiatric exam: Present: normal affect, normal mood - Skin Skin exam: Present: warm, intact Discharge Results Procedures and tests throughout hospitalization: Pending Orders 08/04/16 08:51 Urine Protein Creatinine Ratio Routine Labs on day of discharge: Labs from last 24 hours 08/11/16 08/11/16 08/11/16 10:41 09:22 08:18 POC Glucose 148 H 201 H 157 H 08/11/16 08/10/16 08/10/16 07:35 20:03 15:15 POC Glucose 39 L* 133 H 182 H 08/10/16 11:39 POC Glucose 235 H DS: Provider Date of admission: 08/02/16 20:29 Primary care physician: . No PCP Attending physician on admission: Eduar Harris MD Consults: 08/03/16 12:01 Consult to [facility], Educator [CONS] Routine Reason for Rn Radiation: Re-education 08/05/16 09:38 Consult to Case Mgmt/Social Srvs [CONS] Routine Reason for Case Mgmt/Social Srvs: Other Consult Comment: [facility] 08/05/16 09:55 Consult to Physician [CONS] Routine Comment: Consulting Provider: Consult to Specialist Group: Psychiatry When should Consulting Provider be notified: Now Consult Notification Comment: we dont have psychiatry coverage. 08/07/16 09:31 Consult to Physician [CONS] Routine Comment: bradycardia Consulting Provider: Cardiology - [facility] Person Notified: DAKOTAH Date Notified: 08/07/16 Time Notified: 10:10 Discharging clinician: Jasmina Veliz MD
[2016-08-11 15:00] VITALS: BP 150/71
[2016-08-11] MEDS: INSULIN LISPRO 100 UNIT/ML SUBCUT SCH (15:11)
== END 2016-08-11 14:20 | DRG 684 ==
LOC: N.ED 16:10 → N.EDINP 20:29 → SUATTDRO 20:29 → N.2E 21:34
PROVIDERS: ADMIT Internal Medicine; ATTEND Internal Medicine

== ENCOUNTER 2016-08-14 12:07 | Inpatient (IN) ==
[2016-08-14] MEDS ORDERED: NALOXONE 0.4 MG/ML VIAL IM STA (12:23)
[2016-08-14] MEDS ORDERED: NALOXONE 0.4 MG/ML VIAL ONE (12:26)
[2016-08-14] MEDS ORDERED: NALOXONE 0.4 MG/ML VIAL IV STA (12:26)
--- NOTE | 2016-08-14 12:26 | EKG Report ---
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
[2016-08-14 12:47] LABS: Basophils % 0.4 % (0.0-0.8); Eosinophils # 0.1 10*3/uL (0.0-0.87); Eosinophils % 1.1 % (0.00-10.9); Hematocrit 38.5 VOL% (42.0-52.0); Hemoglobin 12.3 GM/DL (14.0-18.0); Immature Granulocytes % 0.6 %; Immature Granulocytes Absolute 0.03 #; Lymphocytes # 1.2 10*3/uL (1.4-4.0); Lymphocytes % 22.1 % (21.2-54.2); Mean Corpuscular HGB Conc 31.9 GM/DL (32-36); Mean Corpuscular Hemoglobin 27 PG (27-34); Mean Platelet Volume 11.3 FL (9.6-12.0); Monocytes # 0.4 10*3/uL (0.11-0.8); Monocytes % 7.4 % (1.7-12.7); Neutrophils # 3.6 10*3/uL (1.4-7.4); Neutrophils % 68.4 % (38.7-73.9); Platelet Count 294 T/CUMM (130-400); Red Blood Count 4.53 MC/CUMM (3.8-5.5); Red Cell Distribution Width 14.4 % (9.3-17.3); White Blood Count 5.3 T/CUMM (4-12)
--- NOTE | 2016-08-14 12:51 | CT Report ---
Referring physician: Nabor Miller Exam: CT brain without contrast Date: 08/14/2016 Comparison: 08/03/2016 Reason: Alteration of consciousness Technique: Axial images of the head were obtained without the use of contrast. Total DLP was 942.4 mGy*cm. Findings: The ventricles are minimally dilated with no midline displacement. Diffuse atrophy and cerebral hypodensities. Chronic bilateral basal ganglia/thalamic infarcts. There is no evidence of an acute infarction, recent intracranial hemorrhage or abnormal mass effect. The osseous structures appear intact. The mastoid air cells and visualized paranasal sinuses are clear. Impression: No acute intracranial abnormality is identified. Persistent atrophy with microvascular disease and chronic bilateral basal ganglia/thalamic infarcts. The CT exam was performed using one or more of the following dose reduction techniques: Automated exposure control and adjustment of the mA and/or kV according to patient size. PROCEDURE INTERPRETED AT [facility] DEPARTMENT OF RADIOLOGY Final Report Signed by: Dr. Iman Chu
--- NOTE | 2016-08-14 12:55 | XRay Report ---
Portable chest Date: 08/14/2016 Clinical history: Alteration of consciousness Comparison: 08/02/2016 Technique: Portable AP sitting chest Findings: The heart is minimally enlarged. The lungs and mediastinum are unchanged in appearance. Degenerative changes are noted. Impression: No acute cardiopulmonary pathology identified. PROCEDURE INTERPRETED AT [facility] DEPARTMENT OF RADIOLOGY Final Report Signed by: Dr. Iman Chu
[2016-08-14 13:01] LABS: Alanine Aminotransferase 17 U/L (16-61); Albumin 2.4 G/DL (3.4-5.0); Alkaline Phosphatase 94 U/L (45-117); Aspartate Amino Transferase 25 U/L (0-37); Bilirubin,Total < 0.39 MG/DL (0.2-1.0); Blood Urea Nitrogen 30 MG/DL (7-18); Calcium 8.6 MG/DL (8.5-10.1); Glucose 165 MG/DL (74-106); Magnesium 2.6 MG/DL (1.8-2.4); Osmolality,Calculated 292.1 MOS/KG (273-304); Sodium 142 MMOL/L (136-145); Total Protein 6.6 G/DL (6.4-8.3); Troponin I Only 0.019 NG/ML (0.00-0.045)
[2016-08-14 13:36] LABS: Apearance,Urine Slightly Hazy (Clear); Bilirubin,Urine Negative (Negative); Blood, Urine Negative (Negative); Glucose,Urine (UA) 150 mg/dL (Negative); Ketones,Urine Negative (Negative); Mucus,Urine Occasional /LPF (Occasional); Nitrite,Urine Negative (Negative); Protein,Urine 100 MG/DL; RBC,Urine 2 /HPF (0-4); Squamous Epithelial Cell,Urine Occasional /HPF (0-10); Urine Color Yellow (Yellow); Urine Urobilinogen < 2.0 EU/DL (0.2-1.0); WBC,Urine <1 /HPF (0-6)
[2016-08-14 13:59] LABS: Barbiturates Screen,Urine Negative (Negative); Benzodiazepines Screen,Urine Negative (Negative); Cannabinoid Screen,Urine Negative (Negative); Opiate Screen,Urine Negative (Negative); Phencyclidine Screen,Urine Negative (Negative)
--- NOTE | 2016-08-14 14:44 | Emergency Department Note ---
Robin Miller Mantricia, am scribing for, and in the presence of, Nabor Miller MD 12:31. IAngela Phillip K, MD, personally performed the services described in this documentation, ascribed by Karen Kelly in my presence, and it is both accurate and complete 443 . Arrival - Arrival Chief Complaint: Altered Mental Status ED Nursing Triage Note: pt had a bs of 27 this am. it was treated with d50. then at lunch pt started not acting right and voided on self. pt had a check of 156 Mode of Arrival: Stretcher Limitations: No Limitations Source: Patient - History of Present Illness HPI Narrative: Pt is a 71 y/o black male arriving to ED by EMS for evaluation of AMS that onset today. states that since pt came to ED last week for high blood sugar of "400 something," that pt has been confused. Pt has not been Dx with dementia. At time of exam pt's AccuCheck was 180 and was reportedly 20 at [facility]. reports that pt has had CVA in past but denies any paralyzation. She reports no other complaints to ED. there is no history of any fever. Patient was not given any type of medications this morning at [facility] that would make him lethargic. Onset (ago): hour(s) Consistency: constant Allergies/Adverse Reactions: Allergies Allergy/AdvReac Type Severity Reaction Status Date / Time penicillin G Allergy Unknown/Unable Verified 08/02/16 16:27 to obtain codeine AdvReac Mild Headache Verified 08/02/16 16:27 Home Medications: Home Medications Medication Instructions Recorded Confirmed Type Aspirin [Ecotrin] 81 mg PO DAILY 02/10/15 08/14/16 History Pantoprazole Tab [Protonix Tab] 40 mg PO DAILY 02/10/15 08/14/16 History Mirtazapine [Remeron] 15 mg PO BEDTIME 08/11/16 08/14/16 History NIFEdipine XL TAB [Procardia Xl] 90 mg PO DAILY 08/11/16 08/14/16 History OLANZapine TAB [ZyPREXA Tab] 5 mg PO BEDTIME 08/11/16 08/14/16 History Rosuvastatin [Crestor] 40 mg PO DAILY 08/11/16 08/14/16 History Valsartan [Diovan] 40 mg PO DAILY 08/11/16 08/14/16 History hydrALAZINE TAB [Apresoline Tab] 100 mg PO TID 08/11/16 08/14/16 History Folic Acid Tab 1 mg PO DAILY 08/14/16 08/14/16 History Insulin Glargine [Lantus] 10 unit SUBCUT QPM 08/14/16 08/14/16 History Insulin Lispro [HumaLOG] See Protocol SUBCUT DAILY 08/14/16 08/14/16 History Review of System - Review of System ROS unobtainable: due to mental status Medical,Surgical,& Family Hx - Medical History Cardio: History of: Cerebrovascular Disease, Hypertension, PVD (History of stent in his right leg) No history of: Aneurysm, Cardiac Dysrhythmia, Congenital Heart Disease, CHF, CAD, CA, Pacemaker, Valvular Heart Disease Psychological: No history of: Anxiety Disorders, ADHD, Behavior Problems, Bipolar Disorder, Depression, Previous Suicide Attempt, Psychiatric/Substance Abuse Tx, Schizophrenia, Violent Behavior, Psychiatric Problems Neurology: History of: Peripheral Neuropathy, TIA, Vertigo No history of: Brain Aneurysm, Cerebral Hemorrhage, Cerebral Palsy, Dementia , Migraine, Multiple Sclerosis, Parkinson's Disease, Seizures, Neurologocal Cancer HEENT: History of: Ear Problem (hard of hearing.), Eye Problem (bilateral cataract surgery), Dental Problems No history of: Glaucoma, Oral Cancer Endocrine: History of: Diabetes Mellitus (IDDM), Dyslipidemia No history of: Adrenal Disease, Thyroid Disorder, Endocrine Cancer Rheumatology: History of;: Rheumatoid Arthritis, Systemic Lupus Erythematosus, Rheumatological Problems No history of;: Fibromyalgia, Gout, Myasthenia Gravis, Psoriasis, Sjogrens Respiratory: History of: Pneumonia No history of: Asthma, Bronchitis, COPD, Intubation, Obstructive Sleep Apnea , Pulmonary Embolism, Pulmonary Hypertension, Lung Cancer, Respiratory Problems Renal: No history of: Renal (Kidney) Cancer, Dialysis, Renal Failure, Renal Problems Genitourinary: No history of: Bladder Problem, Kidney Stones, Prostate Problems, Recurring Urinary Tract Infections, Genitourinary Cancer, Problems Gastrointestinal: No history of: Bowel Obstruction, Clostridium Difficile, Crohn's Disease, Diverticulitis/ Diverticulosis, Esophageal Varices, GERD, Gastrointestinal Bleed , Hemorrhoids, Hematochezia, Hepatitis, Liver Problems, Pancreatitis, Polyps, Ulcerative Colitis, Gastrointestinal Cancer, GI Problems Musculoskeletal: History of: Back/Neck Problems (neck), Herniated Disk, Musculoskeletal Problems (arthritis) No history of: Amputation, Degenerative Disk Disease, Osteoporosis, Musculoskeletal Cancer Hematology: No history of: Anemia, Blood Transfusion Reaction, Bleeding Problems, Clotting Problems, Sickle Cell Disease, Hematologic Cancer, Blood Disorders Reproductive: No histroy: Penile Disorder, Sexually Transmitted Disease Other: No history of: Anesthesia Reactions, Anaphylaxis, Cancer, Eczema, HIV, Malignant Hyperthermia, MRSA, Vancomycin-Resistant Enterococci, Skin Problems - Surgical History Cardiac Surgeries: Patient Denies: Femoral-Popliteal Bypass Graft, Cardiac Catheterization, Cardiac Surgery, Carotid Endarterectomy, Internal Defibrillator, Vascular Access Devices Thoracic Surgeries: Patient denies;: Kidney (Renal Surgery), Lithotripsy, Nephrectomy, Organ Transplant, Lobectomy Neurologic Surgeries: Patient denies: Brain Aneurysm, Cerebral Hemorrhage, Neurologic Surgery HEENT Surgeries: Surgical HX of: Eye Surgery (cataract) Patient denies: Carotid Endarterectomy, Thyroid Surgery, Tonsilectomy & Adenoidectomy Abdominal Surgeries: Patient denies: Abdominal Surgery, Appendectomy, Cholecystectomy, Colonoscopy , Gastric Bypass Surgery, EGD, Hernia Repair, Splenectomy Reproductive Surgeries: Patient denies;: Cystoscopy, Genitourinary Surgery, Prostate Surgery, Vasectomy Orthopedic Surgeries: Surgical HX of;: Orthopedic Surgery (right knee scope) Patient denies;: Implanted Devices, Spinal Surgery, Total Hip Replacement, Total Knee Replacement - Family History Family History: Reports;: Family Anesthesia Reaction (maternal uncle), Family Cancer (paternal grandfather, maternal great aunt), Family Diabetes, Family Heart Disease (father and brother), Family Hypertension (mother), Family Stroke (mother, sister) Denies;: Family Psychiatric Problems - Social History Smoking Status: Current every day smoker Frequency of Alcohol Use: None Type of Drug Use: None Exam Vital Signs: Vital Signs Temperature 98.6 F 08/14/16 12:11 Pulse Rate 70 08/14/16 15:00 Respiratory Rate 16 08/14/16 15:00 Blood Pressure 196/91 08/14/16 15:00 O2 Sat by Pulse Oximetry 100 08/14/16 15:00 - General General appearance: lethargic - Head Head exam: Present: atraumatic, normocephalic, normal inspection - Eye Eye exam: Present: normal appearance, PERRL, EOMI - ENT ENT exam: Present: normal exam, normal oropharynx, mucous membranes moist, TM's normal bilaterally, normal external ear exam - Neck Neck exam: Present: normal inspection, full ROM, trachea midline. Absent: tenderness - Chest Chest inspection: Present: normal inspection, symmetric chest wall rise. Absent : tenderness - Respiratory Respiratory exam: Present: normal lung sounds bilaterally - Cardiovascular Cardiovascular exam: Present: regular rate, normal rhythm, normal heart sounds - Abdominal Exam Abdominal exam: Present: soft, normal bowel sounds. Absent: distention, tenderness, guarding, rebound - Extremities Exam Extremities exam: Present: normal inspection, normal capillary refill. Absent: tenderness, pedal edema - Back Exam Back exam: Present: normal inspection, full ROM. Absent: tenderness - Neurological Exam Neurological exam: Present: motor sensory deficit (bilat LE weakness; no leg raise). Absent: alert - Expanded Neurological Exam Speech: Present: expressive aphasia (grunts ) - Psychiatric Psychiatric exam: Present: normal affect, normal mood - Skin Skin exam: Present: warm, dry, intact, normal color Course Course Narrative: Patient will be admitted to the hospitalist. Results - Labs CBC & BMP: 08/14/16 12:16 08/14/16 12:16 Lab Results: I have reviewed the patients labs Labs: Laboratory Tests 08/14/16 08/14/16 08/14/16 12:16 12:16 12:16 Hgb 12.3 L Hct 38.5 L MCV 85.0 L MCHC 31.9 L Lymph # (Auto) 1.2 L BUN 30 H Creatinine 1.80 H Glucose 165 H Magnesium 2.6 H Albumin 2.4 L Globulin 4.2 H Albumin/Globulin Ratio 0.5 L Urine Urobilinogen < 2.0 H - EKG EKG results: interpreted by SHANNON, sinus rhythm (Early repolarization) - Diagnostic Findings Procedure: Chest x-ray: report reviewed by me (No acute cardiopulmonary pathology identified.), CT: report reviewed by me (Head: No acute intracranial abnormality is identified. Persistent atrophy with microvascular disease and chronic bilateral basal ganglia/thalamic infarcts.) Disposition Clinical Impression: Altered mental status, Old CVA Clinical Impression: (Ruled Out): Old cerebrovascular accident (CVA) without late effect Case discussed with: patient, patient's family Disposition: Still a Patient Condition: Guarded
--- NOTE | 2016-08-14 15:42 | Hospitalist History & Physical ---
<Mindy Garner - Last Filed: 08/14/16 15:35> Assessment and Plan - Time spent with patient Time spent with patient: Greater than 30 minutes (1) Renal insufficiency Status: Chronic Assessment and plan: Mr. Schumacher is a 71-year-old -[place] male with history of chronic kidney disease, diabetes, hypertension, and dementia transferred from [facility] for evaluation of altered mental status. Hospital medicine has admitted patient for further evaluation. Patient's blood sugars are normal and Narcan showed no improvement. Patient continues to be lethargic. His troponin is 0.019 which is actually lower than his previous numbers but his EKG is showing an acute NJ. Comparing it to his last EKG done on 08/07/2016 there is not any changes. Patient does have some left-sided weakness and though CT is negative and I see no signs of previous CVA in his records will go ahead and get an MRI to rule out stroke. Neurology is on bypass this weekend. We will go ahead and give him some fluids and how a lot of his medicines and continue to monitor. Dr. Munroe we will see and examined patient and further recommendations to follow. Current Visit: No (2) Hypertension, uncontrolled Status: Chronic Current Visit: No (3) IDDM (insulin dependent diabetes mellitus) Status: Chronic Current Visit: No (4) Dementia Status: Chronic Current Visit: No (5) Altered mental status Status: Acute Current Visit: Yes (6) Abnormal EKG Status: Acute Current Visit: Yes History of Present Illness Chief complaint: Altered mental status History of present illness: Mr. Schumacher is a 71 year old -[place] male with history of hypertension, diabetes, and chronic dementia transferred from [facility] with altered mental status. They state patient had a blood sugar of 26 this morning and he woke up enough to eat his whole tray and blood sugars came up but patient's mental status did not really improve. They state he received no medicines at [facility] this morning. Upon exam in the ED by Dr. Miller patient was lethargic and would not awaken. Narcan did not help. Patient will open his eyes with a sternal rub but he will not answer any questions. He just moans. Review of systems is unobtainable due to patient's mental status. He is showing some left -sided weakness of the arm and the leg and I do not see a history of CVA on his previous medical records. He is afebrile vital signs are stable and he is breathing normally. Patient had just been hospitalized for worsening confusion and discharged on 08/11 to [facility]. Patient CT is negative and his labs are unremarkable. After discussion with Dr. Miller the ED physician Dr. Munroe the hospitalist, it was agreed patient would be admitted for further evaluation. Home Medications Medication Instructions Recorded Confirmed Type Aspirin [Ecotrin] 81 mg PO DAILY 02/10/15 08/14/16 History Pantoprazole Tab [Protonix Tab] 40 mg PO DAILY 02/10/15 08/14/16 History Mirtazapine [Remeron] 15 mg PO BEDTIME 08/11/16 08/14/16 History NIFEdipine XL TAB [Procardia Xl] 90 mg PO DAILY 08/11/16 08/14/16 History OLANZapine TAB [ZyPREXA Tab] 5 mg PO BEDTIME 08/11/16 08/14/16 History Rosuvastatin [Crestor] 40 mg PO DAILY 08/11/16 08/14/16 History Valsartan [Diovan] 40 mg PO DAILY 08/11/16 08/14/16 History hydrALAZINE TAB [Apresoline Tab] 100 mg PO TID 08/11/16 08/14/16 History Folic Acid Tab 1 mg PO DAILY 08/14/16 08/14/16 History Insulin Glargine [Lantus] 42 unit SUBCUT QPM 08/14/16 08/14/16 History Insulin Lispro [HumaLOG] See Protocol SUBCUT DAILY 08/14/16 08/14/16 History Allergies Allergy/AdvReac Type Severity Reaction Status Date / Time penicillin G Allergy Unknown/Unable Verified 08/02/16 16:27 to obtain codeine AdvReac Mild Headache Verified 08/02/16 16:27 Medical,Surgical,& Family Hx - Medical History Cardio: History of: Cerebrovascular Disease, Hypertension, PVD (History of stent in his right leg) No history of: Aneurysm, Cardiac Dysrhythmia, Congenital Heart Disease, CHF, CAD, NJ, Pacemaker, Valvular Heart Disease Psychological: No history of: Anxiety Disorders, ADHD, Behavior Problems, Bipolar Disorder, Depression, Previous Suicide Attempt, Psychiatric/Substance Abuse Tx, Schizophrenia, Violent Behavior, Psychiatric Problems Neurology: History of: Cerebrovascular Accident, Peripheral Neuropathy, TIA, Vertigo No history of: Brain Aneurysm, Cerebral Hemorrhage, Cerebral Palsy, Dementia , Migraine, Multiple Sclerosis, Parkinson's Disease, Seizures, Neurologocal Cancer HEENT: History of: Ear Problem (hard of hearing.), Eye Problem (bilateral cataract surgery), Dental Problems No history of: Glaucoma, Oral Cancer Endocrine: History of: Diabetes Mellitus (IDDM), Dyslipidemia No history of: Adrenal Disease, Thyroid Disorder, Endocrine Cancer Rheumatology: History of;: Rheumatoid Arthritis, Systemic Lupus Erythematosus, Rheumatological Problems No history of;: Fibromyalgia, Gout, Myasthenia Gravis, Psoriasis, Sjogrens Respiratory: History of: Pneumonia No history of: Asthma, Bronchitis, COPD, Intubation, Obstructive Sleep Apnea , Pulmonary Embolism, Pulmonary Hypertension, Lung Cancer, Respiratory Problems Renal: No history of: Renal (Kidney) Cancer, Dialysis, Renal Failure, Renal Problems Genitourinary: No history of: Bladder Problem, Kidney Stones, Prostate Problems, Recurring Urinary Tract Infections, Genitourinary Cancer, Problems Gastrointestinal: No history of: Bowel Obstruction, Clostridium Difficile, Crohn's Disease, Diverticulitis/ Diverticulosis, Esophageal Varices, GERD, Gastrointestinal Bleed , Hemorrhoids, Hematochezia, Hepatitis, Liver Problems, Pancreatitis, Polyps, Ulcerative Colitis, Gastrointestinal Cancer, GI Problems Musculoskeletal: History of: Back/Neck Problems (neck), Herniated Disk, Musculoskeletal Problems (arthritis) No history of: Amputation, Degenerative Disk Disease, Osteoporosis, Musculoskeletal Cancer Hematology: No history of: Anemia, Blood Transfusion Reaction, Bleeding Problems, Clotting Problems, Sickle Cell Disease, Hematologic Cancer, Blood Disorders Reproductive: No histroy: Penile Disorder, Sexually Transmitted Disease Other: No history of: Anesthesia Reactions, Anaphylaxis, Cancer, Eczema, HIV, Malignant Hyperthermia, MRSA, Vancomycin-Resistant Enterococci, Skin Problems - Surgical History Cardiac Surgeries: Patient Denies: Femoral-Popliteal Bypass Graft, Cardiac Catheterization, Cardiac Surgery, Carotid Endarterectomy, Internal Defibrillator, Vascular Access Devices Thoracic Surgeries: Patient denies;: Kidney (Renal Surgery), Lithotripsy, Nephrectomy, Organ Transplant, Lobectomy Neurologic Surgeries: Patient denies: Brain Aneurysm, Cerebral Hemorrhage, Neurologic Surgery HEENT Surgeries: Surgical HX of: Eye Surgery (cataract) Patient denies: Carotid Endarterectomy, Thyroid Surgery, Tonsilectomy & Adenoidectomy Abdominal Surgeries: Patient denies: Abdominal Surgery, Appendectomy, Cholecystectomy, Colonoscopy , Gastric Bypass Surgery, EGD, Hernia Repair, Splenectomy Reproductive Surgeries: Patient denies;: Cystoscopy, Genitourinary Surgery, Prostate Surgery, Vasectomy Orthopedic Surgeries: Surgical HX of;: Orthopedic Surgery (right knee scope) Patient denies;: Implanted Devices, Spinal Surgery, Total Hip Replacement, Total Knee Replacement - Family History Family History: Reports;: Family Anesthesia Reaction (maternal uncle), Family Cancer (paternal grandfather, maternal great aunt), Family Diabetes, Family Heart Disease (father and brother), Family Hypertension (mother), Family Stroke (mother, sister) Denies;: Family Psychiatric Problems - Social History Smoking Status: Current every day smoker Frequency of Alcohol Use: None Type of Drug Use: None Marital Status: Lives With:: Brittney Psych ROS unobtainable: due to mental status Exam - Constitutional Vitals: Period Temp Pulse Resp BP Sys/Dixon Pulse Ox Last 24 Hr 98.6 F-98.6 F 70-75 16-20 180-200/84-97 96-100 Exam: Constitutional System: No distress. [No] tremulousness. Head: Normocephalic, atraumatic. Ears, Nose and Throat System: No evidence of Otitis or Mastoiditis. No epistaxis or discharge Eyes System: Pupils equal, round, and reactive. Extraocular muscles intact. Neck: Supple, without adenopathy, [No] jugular venous distention. No thyromegaly , neck mass, or prior surgery apparent. Respiratory System: Chest [clear] to auscultation. Cardiovascular System: Heart with [regular] rate and rhythm. [No] murmur. GI System: Abdomen [soft], [non]tender. [Normo]active bowel sounds present. Musculoskeletal System: limbs with [no] pedal edema. [Full] distal pulses. Patient has delayed movement and strength on the left upper and lower extremity. Neurological System: Unable to obtain sensory deficit. Unable to obtain aphasia Psychiatric System: Conversation consists of moaning Results - Labs CBC & BMP: 08/14/16 12:16 08/14/16 12:16 Lab Results: I have reviewed the past 24 hour labs - Impressions EKG shows sinus rhythm with prolonged AZ interval, LVH, possible septal NJ - Diagnostic Findings Procedure: Chest x-ray: report reviewed by me (No acute pathology), CT: report reviewed by me (CT the head shows no acute intracranial abnormality) <Petra Munroe - Last Filed: 08/14/16 19:13> History of Present Illness History of present illness: Mr. Schumacher is a 71 year old male who presents with hypoglycemia and renal failure. Plan Hold Insulin therapy Gently Hydrate Accuchecks BMP in am Exam - Constitutional Vitals: Period Temp Pulse Resp BP Sys/Dixon Pulse Ox Last 24 Hr 97.9 F-98.6 F 70-81 16-20 169-200/77-97 96-100 Results - Labs CBC & BMP: 08/14/16 12:16 08/14/16 12:16
[2016-08-14] MEDS ORDERED: ONDANSETRON 4 MG/2 ML VIAL IV PRN (15:50)
[2016-08-14] MEDS ORDERED: ACETAMINOPHEN 325 MG TABLET PO PRN (15:50)
[2016-08-14] MEDS ORDERED: DOCUSATE SODIUM 100 MG CAPSULE PO PRN (15:50)
[2016-08-14] MEDS ORDERED: SODIUM CHLORIDE 0.9% 1,000 ML IV SCH (16:00)
[2016-08-14] MEDS ORDERED: ENOXAPARIN 30 MG/0.3 ML SYRINGE SUBCUT SCH (16:30)
[2016-08-14] MEDS: VALSARTAN 80 MG TABLET PO SCH (17:31)
[2016-08-14] MEDS: SODIUM CHLORIDE 0.45% 1,000 ML IV SCH (17:34)
--- NOTE | 2016-08-14 18:26 | XRay Report ---
XR abdomen 1V Indication: Clearance for MRI. Abdomen one view: No radiopaque metallic densities are seen within the abdomen. Small bowel is gas-filled without dilatation, and there is significant increased stool in the ascending colon, transverse and proximal descending segments. Impression: 1. No relative contraindication MRI. 2. Significant constipation. PROCEDURE INTERPRETED AT [facility] DEPARTMENT OF RADIOLOGY Final Report Signed by: Eduar Sellers M.D.
--- NOTE | 2016-08-14 18:27 | XRay Report ---
XR orbits for mri Indication: MRI clearance. Orbits 3 views: No metallic foreign debris is seen within the soft tissues of the face. Metallic dentition is present. Impression: No relative contraindication MRI. PROCEDURE INTERPRETED AT [facility] DEPARTMENT OF RADIOLOGY Final Report Signed by: Eduar Sellers M.D.
[2016-08-14] MEDS: OLANZapine 5 MG TABLET PO SCH (21:49)
[2016-08-14] MEDS: MIRTAZAPINE 15 MG TABLET PO SCH (21:49)
[2016-08-15 04:04] LABS: Basophils % 0.7 % (0.0-0.8); Eosinophils # 0.1 10*3/uL (0.0-0.87); Eosinophils % 2.9 % (0.00-10.9); Hematocrit 32.7 VOL% (42.0-52.0); Hemoglobin 10.2 GM/DL (14.0-18.0); Immature Granulocytes % 0.5 %; Immature Granulocytes Absolute 0.02 #; Lymphocytes # 1.6 10*3/uL (1.4-4.0); Lymphocytes % 35.7 % (21.2-54.2); Mean Corpuscular HGB Conc 31.2 GM/DL (32-36); Mean Corpuscular Hemoglobin 27 PG (27-34); Mean Corpuscular Volume 84.9 FL (87-102); Mean Platelet Volume 11.3 FL (9.6-12.0); Monocytes # 0.5 10*3/uL (0.11-0.8); Monocytes % 10.6 % (1.7-12.7); Neutrophils # 2.2 10*3/uL (1.4-7.4); Neutrophils % 49.6 % (38.7-73.9); Platelet Count 262 T/CUMM (130-400); Red Blood Count 3.85 MC/CUMM (3.8-5.5); Red Cell Distribution Width 14.3 % (9.3-17.3); White Blood Count 4.4 T/CUMM (4-12)
[2016-08-15 04:50] LABS: Albumin 2.1 G/DL (3.4-5.0); Bilirubin,Total 0.5 MG/DL (0.2-1.0); Calcium 8.6 MG/DL (8.5-10.1); Magnesium 2.2 MG/DL (1.8-2.4); Osmolality,Calculated 291.7 MOS/KG (273-304); Potassium 4.5 MMOL/L (3.5-5.1); Total Protein 5.5 G/DL (6.4-8.3)
[2016-08-15] MEDS: SODIUM CHLORIDE 0.45% 1,000 ML IV SCH ×2 (06:38→20:11)
[2016-08-15] MEDS: VALSARTAN 80 MG TABLET PO SCH (08:03)
--- NOTE | 2016-08-15 10:52 | Magnetic Resonance Report ---
MR head/brain wo con Indication: Left-sided weakness. MRI BRAIN WITHOUT CONTRAST Technique: Multiplanar noncontrast MR images of the brain were obtained. Comparison: None. Findings: Motion artifact is present. Multiple very small scattered areas of restricted diffusion are present within the left frontal and parietal casper radiata, left occipital lobe, right occipital lobe, and surface of the right posterior cerebellum. These do not show significant T2 shine through and are therefore acute microemboli. Diffuse atrophy, patchy periventricular white matter T2 and FLAIR hyperintensities, and multiple old lacunar infarcts of both casper radiata in the basal ganglia are present. No large territory vascular infarct shown. No evidence of hemorrhage, mass or mass effect. Orbits are symmetric. Visualized sinuses and mastoid air cells are clear. Impression: Multiple tiny scattered acute lacunar infarcts involving the left hemispheric casper radiata, both occipital lobes and right posterior cerebellum consistent with a central source for microemboli. Generalized atrophy,, chronic small vessel ischemic change of the deep white matter and multiple old lacunar infarcts. PROCEDURE INTERPRETED AT [facility] DEPARTMENT OF RADIOLOGY Final Report Signed by: Eduar Sellers M.D.
[2016-08-15] MEDS ORDERED: ASPIRIN 325 MG TABLET PO SCH (11:30)
[2016-08-15 12:31] LABS: Risk Ratio 5.18; VLDL CHOLESTEROL 32.6 MG/DL
[2016-08-15 12:42] LABS: Troponin I Only 0.027 NG/ML (0.00-0.045)
[2016-08-15] MEDS ORDERED: ASPIRIN EC 81 MG TABLET PO SCH (12:55)
--- NOTE | 2016-08-15 13:22 | Hospitalist Progress Note ---
Assessment and Plan (1) Acute embolic stroke Status: Acute Assessment and plan: MRI this am which showed multiple tiny scattered acute lacunar infarcts involving the left hemispheric casper radiata both occipital lobes and right posterior cerebellum consistent with a central source for microemboli. Plan start Xarelto 40mg daily, ASA 81mg every other day Bilateral Carotid dopplers, unable to do a CTA due to RF Echo Telemetry Cardiac enzymes q3h Statins Lipids, TSH PT/ST/OT consults Neuro to see on Wednesday- I discussed the patient briefly with them, they are on diversion this Current Visit: Yes (2) Hyperlipidemia Status: Chronic Assessment and plan: Patient is on Lipitor 40mg daily Current Visit: No Qualifiers: Hyperlipidemia type: unspecified Qualified Code(s): E78.5 - Hyperlipidemia , unspecified (3) IDDM (insulin dependent diabetes mellitus) Status: Chronic Assessment and plan: continue with SSC, will get accuchecks follow HbA1c levels Current Visit: No (4) Dementia Status: Chronic Assessment and plan: patient was from the [facility] Current Visit: No (5) Acute renal failure Status: Acute Assessment and plan: continue with IVF, hold all nephrotoxics. BMP in am Current Visit: Yes (6) HTN (hypertension) Status: Acute Assessment and plan: will control Current Visit: Yes Hospitalist: Subjective Interval history: Patient had an MRI this am which showed multiple tiny scattered acute lacunar infarcts involving the left hemispheric casper radiata both occipital lobes and right posterior cerebellum consistent with a central source for microemboli. Exam - Constitutional Vitals: Period Temp Pulse Resp BP Sys/Dioxn Pulse Ox Last 24 Hr 97.9 F-99.0 F 65-82 16-21 130-200/70-96 94-100 General appearance: no acute distress - Head Head exam: Present: normal inspection - Cardiovascular Cardiovascular exam: Present: regular rate and rhythm - GI/Abdominal GI/Abdominal exam: Present: normal bowel sounds - Extremities Exam Extremities exam: Present: normal inspection - Neurological Exam Neurological exam: Present: alert, other (somewhat confused) Results - Labs CBC & BMP: 08/15/16 03:25 08/15/16 03:25 Lab Results: I have reviewed the past 24 hour labs
[2016-08-15] MEDS ORDERED: DEXTROSE 50% 25 GM/50 ML VIAL IV PRN (13:30)
[2016-08-15] MEDS ORDERED: GLUCAGON 1 MG VIAL IM PRN (13:30)
[2016-08-15] MEDS: ASPIRIN EC 81 MG TABLET PO SCH (14:30)
--- NOTE | 2016-08-15 15:30 | ECHO Report ---
Kyree Schumacher Exam Date: 08/15/2016 13:49 Referring Physician: Technologist: Amisha Shay RDCS Age: 71 Ht (in): 74 Wt (lb): 216 Gender: M Exam Location: [facility] Indications: Altered mental status, Chronic kidney disease, unspecified, IDDM, Essential (primary) hypertension, Dementia, Left sided weakness, Abnormal electrocardiogram [ECG] [EKG] BP: 130 / 76 HR: 93 Rhythm: Sinus Technical Quality: Fair IMPRESSIONS 1. Left ventricle is normal size with mild concentric left ventricular hypertrophy mild diastolic dysfunction. Ejection fraction is 65+%. 2. Other cardiac chambers are normal size. 3. Mitral valve is thick and slightly sclerotic with trace to mild regurgitation otherwise functionally normal. 4. Aortic valve is a tricuspid structure and anatomically functionally normal. 5. Right-sided valves are unremarkable normal. 6. No evidence of elevated right-sided pressures. MEASUREMENTS (Male / Female) Normal Values 2D ECHO LV Diastolic Diameter PLAX 5.0 cm 4.2 - 5.9 / 3.9 - 5.3 cm LV Systolic Diameter PLAX 2.9 cm LV Fractional Shortening PLAX 42.3 % IVS Diastolic Thickness 1.3 cm 0.6 - 1.0 / 0.6 - 0.9 cm LVPW Diastolic Thickness 1.3 cm 0.6 - 1.0 / 0.6 - 0.9 cm RV Internal Dim ED PLAX 3.3 cm Aortic Root Diameter 3.9 cm LA Systolic Diameter LX 3.7 cm 3.0 - 4.0 / 2.7 - 3.8 cm FINDINGS Left Ventricle Normal left ventricular cavity size. Mild left ventricular hypertrophy. Left ventricular ejection fraction is estimated at 65 %. Right Ventricle The right ventricle is normal in size and function. Right Atrium The right atrium is normal in size. Left Atrium The left atrium is normal in size. Mitral Valve Mildly thickened mitral valve. Trace to mild mitral valve regurgitation. Aortic Valve Morphologically normal aortic valve without significant sclerosis or stenosis. There is no aortic regurgitation. Tricuspid Valve Morphologically normal tricuspid valve without significant stenosis or regurgitation. Pulmonary artery systolic pressure is normal. Pulmonic Valve Morphologically normal pulmonic valve. Mild pulmonary valve regurgitation. Pericardium Normal pericardium without effusion. Aorta Normal ascending aorta dimension. Eduar Castaneda MD (Electronically Signed) Final Date: 15 August 2016 15:29
--- NOTE | 2016-08-15 16:56 | CT Report ---
CT angio head Indication: Stroke. For clarification, MRI shows multiple tiny microemboli, likely central source. CT ANGIOGRAM [place] DLP: 942 mGy*cm. One or more of the following dose reduction techniques was used: Automated exposure control, adjustment of the mA and/or kV according the patient size, or use of iterative reconstruction techniques. Technique: Axial thin cut CT images were obtained from the skull base to the vertex during arterial phase of contrast injection. 3-D vascular MIPs reconstructions and multiplanar reformats were evaluated. Omnipaque 350, 80 cc given. Comparison: None. Findings: Vertebral arteries are patent terminating in the basilar artery. Basilar artery is patent. Basilar artery terminates in bilateral DOCUMENT CLERK. Calcified atheromatous disease of both internal carotid arteries are present through the infundibular and cavernous segments. Focal stenosis of the right ICA terminus noted, 50%. MCA vascular territories are bilaterally symmetric. MONA vasculature symmetric and patent. No aneurysmal change. No abrupt flow cut off. Impression: Focal stenosis right ICA terminus, 50%. Bilateral ICA atheromatous disease as described. PROCEDURE INTERPRETED AT [facility] DEPARTMENT OF RADIOLOGY Final Report Signed by: Eduar Sellers M.D.
--- NOTE | 2016-08-15 16:59 | CT Report ---
CT angio neck Indication: Stroke. CT ANGIOGRAM CAROTID ARTERIES DLP: 1297 mGy*cm. One or more of the following dose reduction techniques was used: Automated exposure control, adjustment of the mA and/or kV according the patient size, or use of iterative reconstruction techniques. Technique: Axial thin cuts CT images were obtained from the aortic arch through the skull base during the arterial phase of contrast injection. 3-D vascular MIPs reconstructions and multiplanar reformats were evaluated. Omnipaque 350, 80 cc given. Comparison: None. Findings: Severity of stenosis based on NASCET criteria. Reference downstream ICA diameters are 5.0 mm bilaterally. Calcified atheromatous disease is present at the origin of the right ICA. However, no measurable stenosis of either ICA origin is present. Both common carotid arteries are widely patent. Both vertebral arteries are widely patent and symmetric in size. There is a bovine arch present. Aortic arch shows no aneurysm or dissection. Moderate vascular tortuosity is present. Subclavian arteries are patent. Nonangiographic findings: No pathologic cervical chain lymphadenopathy. Airways patent. Epiglottis is thin. Vocal cords are symmetric. Esophagus appears patulous containing fluid and air. There is dependent atelectasis of the pulmonary apices which are otherwise clear. Impression: No stenosis of either ICA origin. PROCEDURE INTERPRETED AT [facility] DEPARTMENT OF RADIOLOGY Final Report Signed by: Eduar Sellers M.D.
--- NOTE | 2016-08-15 17:08 | Ultrasound Report ---
US carotid duplex BI Indication: Stroke. CAROTID ULTRASOUND Comparison: None. Findings: Grayscale, color Doppler and pulsed Doppler interrogation of the carotid and vertebral arteries performed. Severity of stenosis based on flow velocity measurements using NASCET criteria. Distal right ICA diameter: 6.5 mm Distal left ICA diameter: 5.8 mm Peak systolic flow velocities in centimeters per second are as follows: Right: CCA: 118 cm/s Proximal ICA: 77 Distal ICA: 64 ICA/CCA ratio: 0.7 Left: CCA: 117 cm/s Proximal ICA: 152 Distal ICA: 123 ICA/CCA ratio: 1.3 External carotid arteries: Both are patent with antegrade flow. Vertebral arteries: Both are patent with antegrade flow. Grayscale and color Doppler images: No significant focal plaque deposition identified, with normal color Doppler flow present. Pulse Doppler waveform interrogation: No significant spectral broadening. Impression: No hemodynamically significant stenosis of either ICA origin. PROCEDURE INTERPRETED AT [facility] DEPARTMENT OF RADIOLOGY Final Report Signed by: Eduar Sellers M.D.
[2016-08-15] MEDS: LACTULOSE 20 GM/30 ML UDCUP PO SCH (20:12)
[2016-08-15] MEDS: OLANZapine 5 MG TABLET PO SCH (20:13)
[2016-08-15] MEDS: MIRTAZAPINE 15 MG TABLET PO SCH (20:13)
[2016-08-15] MEDS: ATORVASTATIN 40 MG TABLET PO SCH (20:13)
[2016-08-15] MEDS: DOCUSATE SODIUM 100 MG CAPSULE PO SCH (20:13)
[2016-08-15] MEDS: INSULIN LISPRO 100 UNIT/ML SUBCUT SCH (21:17)
[2016-08-15] MEDS: INSULIN GLARGINE 100 UNIT/ML SUBCUT SCH (21:18)
[2016-08-16] MEDS: ACETAMINOPHEN 325 MG TABLET PO PRN (01:02)
[2016-08-16] MEDS ORDERED: HALOPERIDOL 5 MG/ML AMP IV ONE (02:28)
[2016-08-16 05:18] LABS: Basophils % 0.3 % (0.0-0.8); Eosinophils % 0.4 % (0.00-10.9); Hematocrit 35.7 VOL% (42.0-52.0); Hemoglobin 11.3 GM/DL (14.0-18.0); Immature Granulocytes % 0.5 %; Immature Granulocytes Absolute 0.06 #; Lymphocytes # 1.2 10*3/uL (1.4-4.0); Lymphocytes % 10.7 % (21.2-54.2); Mean Corpuscular HGB Conc 31.7 GM/DL (32-36); Mean Corpuscular Hemoglobin 27 PG (27-34); Mean Corpuscular Volume 85.4 FL (87-102); Mean Platelet Volume 10.7 FL (9.6-12.0); Monocytes # 0.9 10*3/uL (0.11-0.8); Monocytes % 8.1 % (1.7-12.7); Platelet Count 274 T/CUMM (130-400); Red Blood Count 4.18 MC/CUMM (3.8-5.5); Red Cell Distribution Width 14.1 % (9.3-17.3); White Blood Count 11.3 T/CUMM (4-12)
[2016-08-16 05:51] LABS: Calcium 9.3 MG/DL (8.5-10.1); Osmolality,Calculated 292.7 MOS/KG (273-304); Potassium 4.5 MMOL/L (3.5-5.1)
[2016-08-16 05:58] LABS: Troponin I Only 0.035 NG/ML (0.00-0.045)
[2016-08-16] MEDS: INSULIN LISPRO 100 UNIT/ML SUBCUT SCH ×4 (07:49→21:47)
[2016-08-16] MEDS: DOCUSATE SODIUM 100 MG CAPSULE PO SCH ×2 (08:15→21:10)
[2016-08-16] MEDS: RIVAROXABAN 20 MG TABLET PO SCH (08:15)
[2016-08-16] MEDS: LACTULOSE 20 GM/30 ML UDCUP PO SCH ×2 (08:15→21:09)
[2016-08-16] MEDS ORDERED: amLODIPine 5 MG TABLET PO SCH (09:00)
[2016-08-16 10:26] LABS: Free T4 (Free Thyroxine) 0.84 NG/DL (0.76-1.46); Thyroid Stimulating Hormone 2.25 uIU/ml (0.358-3.74)
--- NOTE | 2016-08-16 11:22 | Hospitalist Progress Note ---
Assessment and Plan (1) Acute embolic stroke Status: Acute Assessment and plan: MRI this am which showed multiple tiny scattered acute lacunar infarcts involving the left hemispheric casper radiata both occipital lobes and right posterior cerebellum consistent with a central source for microemboli. CTA neck showed no stenosis. CTA Head showed focal stenosis right ICA terminus, 50%. Bilateral ICA atheromatous disease.Echo showed normal LV size, mild concentric LVH and mild diastolic dysfunction. EF-65+%. TSH, Lipids noted.Cardiac enzyme- negative Plan Continue with Xarelto 40mg daily, ASA 81mg every other day, Lipitor Follow Bilateral Carotid dopplers ContinueTelemetry, PT/OT/ST Neuro to see in am. Current Visit: Yes (2) Hyperlipidemia Status: Chronic Assessment and plan: Patient is on Lipitor 40mg daily Current Visit: No Qualifiers: Hyperlipidemia type: unspecified Qualified Code(s): E78.5 - Hyperlipidemia , unspecified (3) IDDM (insulin dependent diabetes mellitus) Status: Chronic Assessment and plan: continue with SSC, accuchecks follow HbA1c levels Current Visit: No (4) Dementia Status: Chronic Assessment and plan: patient was combactive and aggressive overnight and calm this am. I suspect sundowning. -will add low dose Risperidone and follow response. Current Visit: No (5) Acute renal failure Status: Acute Assessment and plan: continue with IVF, continue to hold all nephrotoxics. BMP in am Current Visit: Yes (6) HTN (hypertension) Status: Acute Assessment and plan: continue current regime Current Visit: Yes (7) Bradycardia Status: Acute Assessment and plan: As per Nursing staff. Patient's heart rate dropped to the 30s. Plan EKG Move to Telemetry Cardiology consult Hold ca-channel blockers TSH-normal Mg and K are ok Current Visit: Yes (8) Fever Status: Acute Assessment and plan: Patient spiked a temp of 100.9 this am and WBC had increased to 11.3 from 4.4 previously. Plan UA, UC, BC, CXR Will start empiric antibiotics-Levaquin IV renal dose Current Visit: Yes Hospitalist: Subjective Interval history: Patient had a rough night, he was aggressive, combative but this am, he was calm. He spiked a temp of 100.9 this am.He also dropped his heart rate in the 30s. Exam - Constitutional Vitals: Period Temp Pulse Resp BP Sys/Dixon Pulse Ox Last 24 Hr 97.7 F-100.9 F 76-102 18-22 102-168/68-86 94-97 General appearance: no acute distress - Head Head exam: Present: normal inspection - Respiratory Respiratory exam: Present: clear to auscultation bilaterally - Cardiovascular Cardiovascular exam: Present: regular rate and rhythm - GI/Abdominal GI/Abdominal exam: Present: normal bowel sounds - Extremities Exam Extremities exam: Present: normal inspection - Neurological Exam Neurological exam: Present: alert, oriented X3 Results - Labs CBC & BMP: 08/16/16 05:02 08/16/16 05:02 Lab Results: I have reviewed the past 24 hour labs
[2016-08-16] MEDS: LEVOFLOXACIN INJ 250 MG in PREMIX 1 EACH IV SCH (12:56)
--- NOTE | 2016-08-16 13:17 | EKG Report ---
Stationary ECG Study [facility] Test Date: 08/16/2016 1:17:06 PM Pat Name: JOSÉ MIGUEL SHRESTHA Department: Room: 270 Gender: M Last Waxer: DOMINIQUE : 1945 Requested by: Petra Munroe Order Number: [id number] Reading MD: MAGALIE FOSTER Intervals [place] Rate: 103 P: 125 MN: 212 QRS: 48 QRSD: 98 T: 254 QT: 332 QTc: 391 Interpretive Statements SINUS TACHYCARDIA WITH PROLONGED MN INTERVAL LEFT VENTRICULAR HYPERTROPHY AND ST-T CHANGE Electronically Signed On 08-17-16 07:19:09 CDT by MAGALIE FOSTER [email or web address]
--- NOTE | 2016-08-16 15:03 | XRay Report ---
XR chest 1V portable Indication: Fever. Chest one view: Comparison 11/21/2014. Borderline cardiomegaly and mild prominence of central pulmonary vascular markings is stable. Lung volumes are low with atelectasis. No new infiltrates are seen. Impression: No CT change from 08/14/2016. Continued borderline cardiomegaly and mild central pulmonary vascular prominence. PROCEDURE INTERPRETED AT [facility] DEPARTMENT OF RADIOLOGY Final Report Signed by: Eduar Sellers M.D.
[2016-08-16] MEDS: SODIUM CHLORIDE 0.45% 1,000 ML IV SCH (15:38)
[2016-08-16] MEDS ORDERED: risperiDONE 0.25 MG TABLET PO SCH (21:00)
[2016-08-16] MEDS: MIRTAZAPINE 15 MG TABLET PO SCH (21:09)
[2016-08-16] MEDS: ATORVASTATIN 40 MG TABLET PO SCH (21:09)
[2016-08-16] MEDS: OLANZapine 5 MG TABLET PO SCH (21:11)
[2016-08-16] MEDS: INSULIN GLARGINE 100 UNIT/ML SUBCUT SCH (21:48)
[2016-08-17] MEDS: SODIUM CHLORIDE 0.45% 1,000 ML IV SCH ×3 (03:45→13:20)
[2016-08-17 04:44] LABS: Basophils % 0.1 % (0.0-0.8); Eosinophils % 0.1 % (0.00-10.9); Hematocrit 29.8 VOL% (42.0-52.0); Hemoglobin 9.7 GM/DL (14.0-18.0); Immature Granulocytes % 0.6 %; Lymphocytes # 1.2 10*3/uL (1.4-4.0); Lymphocytes % 7.5 % (21.2-54.2); Mean Corpuscular HGB Conc 32.6 GM/DL (32-36); Mean Corpuscular Hemoglobin 27 PG (27-34); Mean Corpuscular Volume 84.2 FL (87-102); Mean Platelet Volume 10.9 FL (9.6-12.0); Monocytes # 1.5 10*3/uL (0.11-0.8); Monocytes % 9.4 % (1.7-12.7); Neutrophils # 12.9 10*3/uL (1.4-7.4); Neutrophils % 82.3 % (38.7-73.9); Platelet Count 212 T/CUMM (130-400); Red Blood Count 3.54 MC/CUMM (3.8-5.5); Red Cell Distribution Width 13.9 % (9.3-17.3); White Blood Count 15.7 T/CUMM (4-12)
[2016-08-17 05:14] LABS: Calcium 8.2 MG/DL (8.5-10.1); Osmolality,Calculated 283.4 MOS/KG (273-304); Potassium 3.9 MMOL/L (3.5-5.1)
[2016-08-17 05:25] LABS: Platelet Estimate Normal
[2016-08-17 06:49] LABS: Apearance,Urine Slightly Hazy (Clear); Bilirubin,Urine Negative (Negative); Blood, Urine Small mg/dL (Negative); Glucose,Urine (UA) 50 mg/dL (Negative); Ketones,Urine Negative (Negative); Nitrite,Urine Negative (Negative); Protein,Urine 100 MG/DL; RBC,Urine 32 /HPF (0-4); Sperm,Urine Occasional /HPF (Negative); Squamous Epithelial Cell,Urine Occasional /HPF (0-10); Urine Color Yellow (Yellow); Urine Specific Gravity 1.009 (1.001-1.035); Urine Urobilinogen < 2.0 EU/DL (0.2-1.0); WBC,Urine 21 /HPF (0-6)
--- NOTE | 2016-08-17 08:24 | Cardiology Consult Note ---
<Mirlande Christianson E - Last Filed: 08/17/16 08:22> Assessment and Plan - Time spent with patient Time spent with patient: Greater than 30 minutes (due to assessment, plan, and documentation) (1) Bradycardia Status: Acute Assessment and plan: See plan of care listed below. Current Visit: No (2) Acute embolic stroke Status: Acute Assessment and plan: See plan of care listed below. Current Visit: Yes (3) Hypertension, uncontrolled Status: Chronic Assessment and plan: See plan of care listed below. Current Visit: No (4) Hyperlipidemia Status: Chronic Assessment and plan: See plan of care listed below. Current Visit: No Qualifiers: Hyperlipidemia type: unspecified Qualified Code(s): E78.5 - Hyperlipidemia , unspecified (5) Diabetes mellitus Status: Chronic Assessment and plan: See plan of care listed below. Current Visit: No Qualifiers: Diabetes mellitus type: type 2 Chronic kidney disease stage: stage 2 (mild ) (6) Dementia Status: Chronic Assessment and plan: See plan of care listed below. Current Visit: No (7) Chronic kidney disease Status: Chronic Assessment and plan: See plan of care listed below. 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 Schumacher is a 71 year old male with a history of hypertension , diabetes, hyperlipidemia, chronic kidney disease, dementia. He has risk factors significant for: hypertension, diabetes, hyperlipidemia, family history of CAD, tobacco use, sedentary lifestyle. He is currently obtunded and and accurate ROS is unobtainable, and HPI has been mostly gathered from chart and previous records. There is no family present but there is a sitter at the bedside who is unable to provide me with much information regarding the patient' s condition. Patient is arousable to sternal rub only and does not make any purposeful movements. He has previously been hospitalized on numerous occasions due to confusion and has been noted to have microvascular encephalopathy in the past. He was just recently hospitalized and discharged to [facility] when he was transferred back to the hospital with altered mental status. He underwent MRI of the brain on 08/15/2016 which showed multiple tiny scattered acute lacunar infarcts involving the left hemispheric casper radiata both occipital lobes and right posterior cerebellum consistent with a central source for micro emboli. Yesterday morning, Mr. Schumacher's heart rate dropped into the 30s and we were consulted to see him. He is not on any chuy blocking agents and his heart rate has since recovered and he's had no further episodes of bradycardia. We saw him for bradycardia during his recent hospitalization as well and placed him on a holter monitor which showed sinus rhythm with average HR 71 (61-92), rare PACs/ PVCs, no sustained tachycardia or bradycardia noted. Echocardiogram done 08/15/2016 revealed EF 65%, mild diastolic dysfunction, mild LVH, trace to mild MR, no evidence of elevated right-sided pressures. Carotid ultrasound done 08/15/2016 revealed no significant stenosis of either ICA origin. Potassium is 3.9, last magnesium level 2.2. Cardiac biomarkers have been within normal limits. EKG's obtained have shown sinus rhythm/sinus tachycardia with prolonged RI interval, LVH. ASSESSMENT/PLAN: 1. BRADYCARDIA - Mr. Schumacher had what looks to be a junctional rhythm pattern with rates in the 30s-40s per claims specialist strips yesterday morning around 0825. This lasted for a few minutes and his heart rate improved. He has had no further incidences upon review of his claims specialist. We will continue to monitor for dysrhythmias and avoid any chuy blocking agents. Will further discuss with Dr. Mckeon and await his recommendations. 2. ACUTE EMBOLIC STROKE - Continue Xarelto, Lipitor, ASA QOD. Neurology has been consulted. 3. HYPERTENSION -has been labile since admission. He has had blood pressures up to 200/96 and as low as 102/68. Blood pressure is currently well controlled. We will continue to monitor and adjust medications accordingly. 4. HYPERLIPIDEMIA - Continue lipid lowering agent. Triglycerides 163, cholesterol 228, LDL 152, HDL 44. 5. DIABETES MELLITUS - Patient is receiving accuchecks with sliding scale insulin. Will defer further management to hospital medicine. 6. DEMENTIA - This is chronic. Patient was undergoing treatment at the [facility] when he had a change in mental status. 7. CHRONIC KIDNEY DISEASE -creatinine currently 1.8. This is stable and appears to be around his baseline. 8. FEVER - Mr. Schumacher's temperature peak has been 101.7. UA, UC, BC, CXR were obtained and he was started on prophylactic antibiotics with renal dosing. Chest xray did not show any acute processes. Urine culture was negative. His WBC has risen from 4.4 to 11.3, and now to 15.7. Dr. Mckeon to follow with further plan and addendum. CC: Luana Hdz MD - Home Medications and Allergies Home Medications: Home Medications Medication Instructions Recorded Confirmed Type Aspirin [Ecotrin] 81 mg PO DAILY 02/10/15 08/14/16 History Pantoprazole Tab [Protonix Tab] 40 mg PO DAILY 02/10/15 08/14/16 History Mirtazapine [Remeron] 15 mg PO BEDTIME 08/11/16 08/14/16 History NIFEdipine XL TAB [Procardia Xl] 90 mg PO DAILY 08/11/16 08/14/16 History OLANZapine TAB [ZyPREXA Tab] 5 mg PO BEDTIME 08/11/16 08/14/16 History Rosuvastatin [Crestor] 40 mg PO DAILY 08/11/16 08/14/16 History Valsartan [Diovan] 40 mg PO DAILY 08/11/16 08/14/16 History hydrALAZINE TAB [Apresoline Tab] 100 mg PO TID 08/11/16 08/14/16 History Folic Acid Tab 1 mg PO DAILY 08/14/16 08/14/16 History Insulin Glargine [Lantus] 10 unit SUBCUT BEDTIME 08/14/16 08/14/16 History Insulin Lispro [HumaLOG] See Protocol SUBCUT DAILY 08/14/16 08/14/16 History Allergies/Adverse Reactions: Allergies Allergy/AdvReac Type Severity Reaction Status Date / Time penicillin G Allergy Unknown/Unable Verified 08/02/16 16:27 to obtain codeine AdvReac Mild Headache Verified 08/02/16 16:27 ROS unobtainable: due to mental status, due to dementia Medical,Surgical,& Family Hx - Medical History Cardio: History of: Cerebrovascular Disease, Hypertension, PVD (History of stent in his right leg) No history of: Aneurysm, Cardiac Dysrhythmia, Congenital Heart Disease, CHF, CAD, [place], Pacemaker, Valvular Heart Disease Psychological: No history of: Anxiety Disorders, ADHD, Behavior Problems, Bipolar Disorder, Depression, Previous Suicide Attempt, Psychiatric/Substance Abuse Tx, Schizophrenia, Violent Behavior, Psychiatric Problems Neurology: History of: Cerebrovascular Accident, Peripheral Neuropathy, TIA, Vertigo No history of: Brain Aneurysm, Cerebral Hemorrhage, Cerebral Palsy, Dementia , Migraine, Multiple Sclerosis, Parkinson's Disease, Seizures, Neurologocal Cancer HEENT: History of: Ear Problem (hard of hearing.), Eye Problem (bilateral cataract surgery), Dental Problems No history of: Glaucoma, Oral Cancer Endocrine: History of: Diabetes Mellitus (IDDM), Dyslipidemia No history of: Adrenal Disease, Thyroid Disorder, Endocrine Cancer Rheumatology: History of;: Rheumatoid Arthritis, Systemic Lupus Erythematosus, Rheumatological Problems No history of;: Fibromyalgia, Gout, Myasthenia Gravis, Psoriasis, Sjogrens Respiratory: History of: Pneumonia No history of: Asthma, Bronchitis, COPD, Intubation, Obstructive Sleep Apnea , Pulmonary Embolism, Pulmonary Hypertension, Lung Cancer, Respiratory Problems Renal: No history of: Renal (Kidney) Cancer, Dialysis, Renal Failure, Renal Problems Genitourinary: No history of: Bladder Problem, Kidney Stones, Prostate Problems, Recurring Urinary Tract Infections, Genitourinary Cancer, Problems Gastrointestinal: No history of: Bowel Obstruction, Clostridium Difficile, Crohn's Disease, Diverticulitis/ Diverticulosis, Esophageal Varices, GERD, Gastrointestinal Bleed , Hemorrhoids, Hematochezia, Hepatitis, Liver Problems, Pancreatitis, Polyps, Ulcerative Colitis, Gastrointestinal Cancer, GI Problems Musculoskeletal: History of: Back/Neck Problems (neck), Herniated Disk, Musculoskeletal Problems (arthritis) No history of: Amputation, Degenerative Disk Disease, Osteoporosis, Musculoskeletal Cancer Hematology: No history of: Anemia, Blood Transfusion Reaction, Bleeding Problems, Clotting Problems, Sickle Cell Disease, Hematologic Cancer, Blood Disorders Reproductive: No histroy: Penile Disorder, Sexually Transmitted Disease Other: No history of: Anesthesia Reactions, Anaphylaxis, Cancer, Eczema, HIV, Malignant Hyperthermia, MRSA, Vancomycin-Resistant Enterococci, Skin Problems - Surgical History Cardiac Surgeries: Patient Denies: Femoral-Popliteal Bypass Graft, Cardiac Catheterization, Cardiac Surgery, Carotid Endarterectomy, Internal Defibrillator, Vascular Access Devices Thoracic Surgeries: Patient denies;: Kidney (Renal Surgery), Lithotripsy, Nephrectomy, Organ Transplant, Lobectomy Neurologic Surgeries: Patient denies: Brain Aneurysm, Cerebral Hemorrhage, Neurologic Surgery HEENT Surgeries: Surgical HX of: Eye Surgery (cataract) Patient denies: Carotid Endarterectomy, Thyroid Surgery, Tonsilectomy & Adenoidectomy Abdominal Surgeries: Patient denies: Abdominal Surgery, Appendectomy, Cholecystectomy, Colonoscopy , Gastric Bypass Surgery, EGD, Hernia Repair, Splenectomy Reproductive Surgeries: Patient denies;: Cystoscopy, Genitourinary Surgery, Prostate Surgery, Vasectomy Orthopedic Surgeries: Surgical HX of;: Orthopedic Surgery (right knee scope) Patient denies;: Implanted Devices, Spinal Surgery, Total Hip Replacement, Total Knee Replacement - Family History Family History: Reports;: Family Anesthesia Reaction (maternal uncle), Family Cancer (paternal grandfather, maternal great aunt), Family Diabetes, Family Heart Disease (father and brother), Family Hypertension (mother), Family Stroke (mother, sister) Denies;: Family Psychiatric Problems - Social History Smoking Status: Current every day smoker Frequency of Alcohol Use: None Type of Drug Use: None Marital Status: Lives With:: Spouse Physical Examination Vital Signs Temp Pulse Resp BP Pulse Ox 98.6 F 73 18 195/97 98 08/14/16 12:11 08/14/16 12:11 08/14/16 12:11 08/14/16 12:11 08/14/16 12:11 Other: General appearance: Resting with eyes closed. Obtunded. Overweight, no acute distress. - Head Head exam: Present: normal inspection, normocephalic, atraumatic. Absent: hematoma, laceration - Eye Eye exam: Present: EOMI. Absent: conjunctival injection, nystagmus, periorbital swelling, scleral icterus, laceration to eyelids Pupils: Present: PERRL. Absent: constricted, dilated, fixed, irregular, unequal - ENT ENT exam: Present: normal exam, normal external ear exam - Neck Neck exam: Present: normal inspection. Absent: lymphadenopathy, meningismus, tenderness, thyromegaly - Respiratory Respiratory exam: Present: clear to auscultation bilaterally. Absent: accessory muscle use, chest wall tenderness - Cardiovascular Cardiovascular exam: Present: regular rate and rhythm. Absent: carotid bruit, gallop, JVD, rubs, murmur - GI/Abdominal GI/Abdominal exam: Present: normal bowel sounds, soft. Absent: distended, firm , guarding, hernia, mass, tenderness, rebound. - Extremities Exam Extremities exam: Present: normal inspection, normal capillary refill. Upper extremity pulses 2+. Lower extremity pulses 2+. Absent: calf tenderness, edema -Musculoskeletal Exam Musculoskeletal: Present: No Fluid Collection, Poor range of motion due to mental status. Per records, he previously had left sided weakness, but he is not alert enough to fully evaluate this. - Back Exam Back exam: Present: unable to examine due to habitus. - Neurological Exam Neurological exam: Present: Obtunded, eyes open to sternal rub but do not fixate. No purposeful movements noted, does not follow commands. No resting or essential tremor - Skin Skin exam: Present: normal color, warm, dry, intact. Absent: cyanosis, diaphoretic, rash, urticaria Result/EKG - Labs CBC & BMP: 08/17/16 04:27 08/17/16 04:27 Lab Results: I have reviewed the past 24 hour labs Labs: Laboratory Results - last 24 hr 08/16/16 08/16/16 08/16/16 04:57 04:57 12:28 WBC RBC Hgb Hct MCV MCH MCHC RDW Plt Count MPV Neut % (Auto) Lymph % (Auto) Reeves % (Auto) Eos % (Auto) Baso % (Auto) Neut # (Auto) Lymph # (Auto) Reeves # (Auto) Eos # (Auto) Baso # (Auto) Immature Gran % Nucleated RBC % Immature Gran # Nucleated RBCs # Platelet Estimate Anisocytosis Sodium Potassium Chloride Carbon Dioxide Anion Gap BUN Creatinine GFR Calculation BUN/Creatinine Ratio Glucose POC Glucose 286 H Hemoglobin A1c < 4.2 L Calculated Osmolality Calcium Free T4 0.84 TSH 3rd Generation 2.250 Urine Color Urine Appearance Urine pH Ur Specific Roby Urine Protein Urine Glucose (UA) Urine Ketones Urine Blood Urine Nitrate Urine Bilirubin Urine Urobilinogen Urine Leukocytes Urine RBC Urine WBC Ur Squamous Epith Cells Urine Sperm Ur Culture Indicated? 08/16/16 08/16/16 08/17/16 16:16 21:07 04:27 WBC 15.7 H D RBC 3.54 L Hgb 9.7 L Hct 29.8 L MCV 84.2 L MCH 27 MCHC 32.6 RDW 13.9 Plt Count 212 D MPV 10.9 Neut % (Auto) 82.3 H Lymph % (Auto) 7.5 L Reeves % (Auto) 9.4 Eos % (Auto) 0.1 Baso % (Auto) 0.1 Neut # (Auto) 12.9 H Lymph # (Auto) 1.2 L Reeves # (Auto) 1.5 H Eos # (Auto) 0.0 Baso # (Auto) 0.0 Immature Gran % 0.6 Nucleated RBC % 0.0 Immature Gran # 0.10 Nucleated RBCs # 0.00 Platelet Estimate Normal Anisocytosis Sodium Potassium Chloride Carbon Dioxide Anion Gap BUN Creatinine GFR Calculation BUN/Creatinine Ratio Glucose POC Glucose 161 H 169 H Hemoglobin A1c Calculated Osmolality Calcium Free T4 TSH 3rd Generation Urine Color Urine Appearance Urine pH Ur Specific Roby Urine Protein Urine Glucose (UA) Urine Ketones Urine Blood Urine Nitrate Urine Bilirubin Urine Urobilinogen Urine Leukocytes Urine RBC Urine WBC Ur Squamous Epith Cells Urine Sperm Ur Culture Indicated? 08/17/16 08/17/16 08/17/16 04:27 05:50 07:27 WBC RBC Hgb Hct MCV MCH MCHC RDW Plt Count MPV Neut % (Auto) Lymph % (Auto) Reeves % (Auto) Eos % (Auto) Baso % (Auto) Neut # (Auto) Lymph # (Auto) Reeves # (Auto) Eos # (Auto) Baso # (Auto) Immature Gran % Nucleated RBC % Immature Gran # Nucleated RBCs # Platelet Estimate Anisocytosis Sodium 140 Potassium 3.9 Chloride 104 Carbon Dioxide 27 Anion Gap 12.9 BUN 25 H Creatinine 1.80 H GFR Calculation 56 BUN/Creatinine Ratio 13.00 Glucose 115 H POC Glucose 115 H Hemoglobin A1c Calculated Osmolality 283.4 Calcium 8.2 L Free T4 TSH 3rd Generation Urine Color Yellow Urine Appearance Slightly hazy Urine pH 6.0 Ur Specific Roby 1.009 Urine Protein 100 Urine Glucose (UA) 50 Urine Ketones Negative Urine Blood Small Urine Nitrate Negative Urine Bilirubin Negative Urine Urobilinogen < 2.0 H Urine Leukocytes Trace Urine RBC 32 Urine WBC 21 Ur Squamous Epith Cells Occasional Urine Sperm Occasional Ur Culture Indicated? Ordered separately - EKG EKG results: interpreted by me, sinus rhythm EKG shows: tachycardia (sinus tach, prolonged RI interval, LVH, ST-T abnormality ) <Maty Mckeon - Last Filed: 08/17/16 09:38> Assessment and Plan (1) Dementia Status: Chronic Current Visit: No (2) Acute embolic stroke Status: Acute Current Visit: Yes (3) Acute renal failure Status: Acute Current Visit: Yes (4) HTN (hypertension) Status: Acute Current Visit: Yes (5) Febrile illness, acute Status: Acute Current Visit: Yes History of Present Illness - Consult Narrative History of present illness: Mr. Schumacher is a 71 year old male with the above history of present illness. The patient was transferred here for bradycardia however we have not witnessed or seen any bradycardia since he has been here. He was apparently combative during the night received several agents that would alter his level of consciousness and when I saw him he was minimally to nonresponsive. His respirations were adequate. I was unable to get any history. I reviewed the MRI report from Dr. Sellers. This patient has lacunar disease and also diffuse small vessel disease that might suggest central embolic phenomenon. At some point he certainly may be a candidate for transesophageal echocardiogram however this time he is too sedated. Neurology will see the patient. The patient is currently on Xarelto and aspirin for presumed cardioembolic source of emboli or vascular vascular emboli. We have not seen any dysrhythmia while he is been on telemetry but certainly atrial fibrillation is a significant probability. At this time would recommend medical therapy and follow. His level of dementia is unknown to me as the patient is not able to communicate at this time. He as fever and leukocytosis but no other stigmata of endocarditis at this time. His fever and leukocytosis suggest underlying infection that may be playing a role in his AMS He has had large swings in his blood pressure which may also contribute to the symptomatology and size of his lacunar disease. I saw and discussed with Ms. Christianson CC: Luana Hdz MD ROS unobtainable: due to mental status, due to dementia Physical Examination Vital Signs Temp Pulse Resp BP Pulse Ox 98.6 F 73 18 195/97 98 08/14/16 12:11 08/14/16 12:11 08/14/16 12:11 08/14/16 12:11 08/14/16 12:11 Other: His pupils are pinpoint. He has dense arcus. He has sonorous respirations and will not respond to verbal or noxious stimuli. His cardiovascular demonstrates a regular rhythm at about 85 bpm without gallop. Tones are indistinct and his sonorous respirations make him more difficult to hear. He has no lower extremity edema. Abdominal exam is soft with normoactive bowel sounds. Agree with the remainder the above listed exam as charted by Ms. Christianson Result/EKG - Labs CBC & BMP: 08/17/16 04:27 08/17/16 04:27 Labs: Laboratory Results - last 24 hr 08/16/16 08/16/16 08/16/16 04:57 04:57 12:28 WBC RBC Hgb Hct MCV MCH MCHC RDW Plt Count MPV Neut % (Auto) Lymph % (Auto) Reeves % (Auto) Eos % (Auto) Baso % (Auto) Neut # (Auto) Lymph # (Auto) Reeves # (Auto) Eos # (Auto) Baso # (Auto) Immature Gran % Nucleated RBC % Immature Gran # Nucleated RBCs # Platelet Estimate Anisocytosis Sodium Potassium Chloride Carbon Dioxide Anion Gap BUN Creatinine GFR Calculation BUN/Creatinine Ratio Glucose POC Glucose 286 H Hemoglobin A1c < 4.2 L Calculated Osmolality Calcium Magnesium Free T4 0.84 TSH 3rd Generation 2.250 Urine Color Urine Appearance Urine pH Ur Specific Roby Urine Protein Urine Glucose (UA) Urine Ketones Urine Blood Urine Nitrate Urine Bilirubin Urine Urobilinogen Urine Leukocytes Urine RBC Urine WBC Ur Squamous Epith Cells Urine Sperm Ur Culture Indicated? 08/16/16 08/16/16 08/17/16 16:16 21:07 04:27 WBC 15.7 H D RBC 3.54 L Hgb 9.7 L Hct 29.8 L MCV 84.2 L MCH 27 MCHC 32.6 RDW 13.9 Plt Count 212 D MPV 10.9 Neut % (Auto) 82.3 H Lymph % (Auto) 7.5 L Reeves % (Auto) 9.4 Eos % (Auto) 0.1 Baso % (Auto) 0.1 Neut # (Auto) 12.9 H Lymph # (Auto) 1.2 L Reeves # (Auto) 1.5 H Eos # (Auto) 0.0 Baso # (Auto) 0.0 Immature Gran % 0.6 Nucleated RBC % 0.0 Immature Gran # 0.10 Nucleated RBCs # 0.00 Platelet Estimate Normal Anisocytosis Sodium Potassium Chloride Carbon Dioxide Anion Gap BUN Creatinine GFR Calculation BUN/Creatinine Ratio Glucose POC Glucose 161 H 169 H Hemoglobin A1c Calculated Osmolality Calcium Magnesium Free T4 TSH 3rd Generation Urine Color Urine Appearance Urine pH Ur Specific Roby Urine Protein Urine Glucose (UA) Urine Ketones Urine Blood Urine Nitrate Urine Bilirubin Urine Urobilinogen Urine Leukocytes Urine RBC Urine WBC Ur Squamous Epith Cells Urine Sperm Ur Culture Indicated? 08/17/16 08/17/16 08/17/16 04:27 04:41 05:50 WBC RBC Hgb Hct MCV MCH MCHC RDW Plt Count MPV Neut % (Auto) Lymph % (Auto) Reeves % (Auto) Eos % (Auto) Baso % (Auto) Neut # (Auto) Lymph # (Auto) Reeves # (Auto) Eos # (Auto) Baso # (Auto) Immature Gran % Nucleated RBC % Immature Gran # Nucleated RBCs # Platelet Estimate Anisocytosis Sodium 140 Potassium 3.9 Chloride 104 Carbon Dioxide 27 Anion Gap 12.9 BUN 25 H Creatinine 1.80 H GFR Calculation 56 BUN/Creatinine Ratio 13.00 Glucose 115 H POC Glucose Hemoglobin A1c Calculated Osmolality 283.4 Calcium 8.2 L Magnesium 1.9 Free T4 TSH 3rd Generation Urine Color Yellow Urine Appearance Slightly hazy Urine pH 6.0 Ur Specific Roby 1.009 Urine Protein 100 Urine Glucose (UA) 50 Urine Ketones Negative Urine Blood Small Urine Nitrate Negative Urine Bilirubin Negative Urine Urobilinogen < 2.0 H Urine Leukocytes Trace Urine RBC 32 Urine WBC 21 Ur Squamous Epith Cells Occasional Urine Sperm Occasional Ur Culture Indicated? Ordered separately 08/17/16 07:27 WBC RBC Hgb Hct MCV MCH MCHC RDW Plt Count MPV Neut % (Auto) Lymph % (Auto) Reeves % (Auto) Eos % (Auto) Baso % (Auto) Neut # (Auto) Lymph # (Auto) Reeves # (Auto) Eos # (Auto) Baso # (Auto) Immature Gran % Nucleated RBC % Immature Gran # Nucleated RBCs # Platelet Estimate Anisocytosis Sodium Potassium Chloride Carbon Dioxide Anion Gap BUN Creatinine GFR Calculation BUN/Creatinine Ratio Glucose POC Glucose 115 H Hemoglobin A1c Calculated Osmolality Calcium Magnesium Free T4 TSH 3rd Generation Urine Color Urine Appearance Urine pH Ur Specific Roby Urine Protein Urine Glucose (UA) Urine Ketones Urine Blood Urine Nitrate Urine Bilirubin Urine Urobilinogen Urine Leukocytes Urine RBC Urine WBC Ur Squamous Epith Cells Urine Sperm Ur Culture Indicated? - EKG EKG results: interpreted by me, sinus rhythm (No acute changes)
[2016-08-17] MEDS ORDERED: NALOXONE 0.4 MG/ML VIAL ONE (08:30)
[2016-08-17] MEDS ORDERED: NALOXONE 0.4 MG/ML VIAL IV ONE (08:34)
[2016-08-17] MEDS: INSULIN LISPRO 100 UNIT/ML SUBCUT SCH ×4 (08:36→22:03)
[2016-08-17] MEDS: LACTULOSE 20 GM/30 ML UDCUP PO SCH ×2 (09:28→22:03)
[2016-08-17] MEDS: amLODIPine 10 MG TABLET PO SCH ×2 (09:28→11:49)
[2016-08-17] MEDS: DOCUSATE SODIUM 100 MG CAPSULE PO SCH ×2 (09:28→11:49)
[2016-08-17] MEDS: RIVAROXABAN 20 MG TABLET PO SCH ×2 (09:28→11:49)
[2016-08-17] MEDS: ASPIRIN EC 81 MG TABLET PO SCH ×2 (09:28→11:50)
[2016-08-17] MEDS ORDERED: SKIN HEALING OINT (AQUAPHOR) 50 GM TUBE TOP PRN (11:35)
[2016-08-17] MEDS: LEVOFLOXACIN INJ 250 MG in PREMIX 1 EACH IV SCH (11:50)
[2016-08-17] MEDS: ACETAMINOPHEN 325 MG TABLET PO PRN (11:50)
--- NOTE | 2016-08-17 16:21 | Neurology Consult Note ---
History of Present Illness History of present illness: Mr. Schumacher is a 71 year old -[place] gentleman with history of hypertension, diabetes, and chronic dementia transferred from [facility] with altered mental status. They state patient had a blood sugar of 26 that morning and he woke up enough to eat his whole tray and blood sugars came up but patient 's mental status did not really improve. They state he received no medicines at [facility] that morning. patient was lethargic and would not awaken. Narcan did not help. He is waking up some and eating as well however drifting off frequently. MRI of the brain revealed acute tiny multiple infarction primary in the left hemisphere but some in the right cerebellar hemisphere. Patient will open his eyes with a sternal rub but he will not answer any questions. He just moans. He has been on Xarelto for stroke prevention. He has had some bradycardia as well. Home Medications Medication Instructions Recorded Confirmed Type Aspirin [Ecotrin] 81 mg PO DAILY 02/10/15 08/14/16 History Pantoprazole Tab [Protonix Tab] 40 mg PO DAILY 02/10/15 08/14/16 History Mirtazapine [Remeron] 15 mg PO BEDTIME 08/11/16 08/14/16 History NIFEdipine XL TAB [Procardia Xl] 90 mg PO DAILY 08/11/16 08/14/16 History OLANZapine TAB [ZyPREXA Tab] 5 mg PO BEDTIME 08/11/16 08/14/16 History Rosuvastatin [Crestor] 40 mg PO DAILY 08/11/16 08/14/16 History Valsartan [Diovan] 40 mg PO DAILY 08/11/16 08/14/16 History hydrALAZINE TAB [Apresoline Tab] 100 mg PO TID 08/11/16 08/14/16 History Folic Acid Tab 1 mg PO DAILY 08/14/16 08/14/16 History Insulin Glargine [Lantus] 10 unit SUBCUT BEDTIME 08/14/16 08/14/16 History Insulin Lispro [HumaLOG] See Protocol SUBCUT DAILY 08/14/16 08/14/16 History Allergies Allergy/AdvReac Type Severity Reaction Status Date / Time penicillin G Allergy Unknown/Unable Verified 08/02/16 16:27 to obtain codeine AdvReac Mild Headache Verified 08/02/16 16:27 ROS unobtainable: due to mental status Medical,Surgical,& Family Hx - Medical History Cardio: History of: Cerebrovascular Disease, Hypertension, PVD (History of stent in his right leg) No history of: Aneurysm, Cardiac Dysrhythmia, Congenital Heart Disease, CHF, CAD, ND, Pacemaker, Valvular Heart Disease Psychological: No history of: Anxiety Disorders, ADHD, Behavior Problems, Bipolar Disorder, Depression, Previous Suicide Attempt, Psychiatric/Substance Abuse Tx, Schizophrenia, Violent Behavior, Psychiatric Problems Neurology: History of: Cerebrovascular Accident, Peripheral Neuropathy, TIA, Vertigo No history of: Brain Aneurysm, Cerebral Hemorrhage, Cerebral Palsy, Dementia , Migraine, Multiple Sclerosis, Parkinson's Disease, Seizures, Neurologocal Cancer HEENT: History of: Ear Problem (hard of hearing.), Eye Problem (bilateral cataract surgery), Dental Problems No history of: Glaucoma, Oral Cancer Endocrine: History of: Diabetes Mellitus (IDDM), Dyslipidemia No history of: Adrenal Disease, Thyroid Disorder, Endocrine Cancer Rheumatology: History of;: Rheumatoid Arthritis, Systemic Lupus Erythematosus, Rheumatological Problems No history of;: Fibromyalgia, Gout, Myasthenia Gravis, Psoriasis, Sjogrens Respiratory: History of: Pneumonia No history of: Asthma, Bronchitis, COPD, Intubation, Obstructive Sleep Apnea , Pulmonary Embolism, Pulmonary Hypertension, Lung Cancer, Respiratory Problems Renal: No history of: Renal (Kidney) Cancer, Dialysis, Renal Failure, Renal Problems Genitourinary: No history of: Bladder Problem, Kidney Stones, Prostate Problems, Recurring Urinary Tract Infections, Genitourinary Cancer, Problems Gastrointestinal: No history of: Bowel Obstruction, Clostridium Difficile, Crohn's Disease, Diverticulitis/ Diverticulosis, Esophageal Varices, GERD, Gastrointestinal Bleed , Hemorrhoids, Hematochezia, Hepatitis, Liver Problems, Pancreatitis, Polyps, Ulcerative Colitis, Gastrointestinal Cancer, GI Problems Musculoskeletal: History of: Back/Neck Problems (neck), Herniated Disk, Musculoskeletal Problems (arthritis) No history of: Amputation, Degenerative Disk Disease, Osteoporosis, Musculoskeletal Cancer Hematology: No history of: Anemia, Blood Transfusion Reaction, Bleeding Problems, Clotting Problems, Sickle Cell Disease, Hematologic Cancer, Blood Disorders Reproductive: No histroy: Penile Disorder, Sexually Transmitted Disease Other: No history of: Anesthesia Reactions, Anaphylaxis, Cancer, Eczema, HIV, Malignant Hyperthermia, MRSA, Vancomycin-Resistant Enterococci, Skin Problems - Surgical History Cardiac Surgeries: Patient Denies: Femoral-Popliteal Bypass Graft, Cardiac Catheterization, Cardiac Surgery, Carotid Endarterectomy, Internal Defibrillator, Vascular Access Devices Thoracic Surgeries: Patient denies;: Kidney (Renal Surgery), Lithotripsy, Nephrectomy, Organ Transplant, Lobectomy Neurologic Surgeries: Patient denies: Brain Aneurysm, Cerebral Hemorrhage, Neurologic Surgery HEENT Surgeries: Surgical HX of: Eye Surgery (cataract) Patient denies: Carotid Endarterectomy, Thyroid Surgery, Tonsilectomy & Adenoidectomy Abdominal Surgeries: Patient denies: Abdominal Surgery, Appendectomy, Cholecystectomy, Colonoscopy , Gastric Bypass Surgery, EGD, Hernia Repair, Splenectomy Reproductive Surgeries: Patient denies;: Cystoscopy, Genitourinary Surgery, Prostate Surgery, Vasectomy Orthopedic Surgeries: Surgical HX of;: Orthopedic Surgery (right knee scope) Patient denies;: Implanted Devices, Spinal Surgery, Total Hip Replacement, Total Knee Replacement - Family History Family History: Reports;: Family Anesthesia Reaction (maternal uncle), Family Cancer (paternal grandfather, maternal great aunt), Family Diabetes, Family Heart Disease (father and brother), Family Hypertension (mother), Family Stroke (mother, sister) Denies;: Family Psychiatric Problems - Social History Smoking Status: Current every day smoker Frequency of Alcohol Use: None Type of Drug Use: None Exam - Constitutional Vitals: Period Temp Pulse Resp BP Sys/Dixon Pulse Ox Last 24 Hr 98.0 F-101.7 F 66-108 14-22 110-161/56-112 93-97 Exam: GENERAL: Patient is in no acute distress. NECK: Neck is slightly stiff. There is no JVD. No carotid bruits present. No thyroid masses. CVS: First and second heart sounds are normal. There is no S3 present. Regular rate and rhythm. RESPIRATORY: Lungs are clear to auscultation without any rales or rhonchi. ABDOMEN: Soft and non-tender. Bowel sounds are present. There is no hepatosplenomegaly. EXT: There is no palpable edema. Peripheral pulses are present. Skin: No rashes Central Nervous system: General: At the present time unresponsive Speech: None Comprehension: None Facial expressions: Normal Cranial Nerves: Pupils are small but reactive. Doll's head eye movements are positive. No facial asymmetry seen. Motor: Bulk and Tone is normal. Strength cannot be assessed Sensory: Cannot be a Reflexes: 1+ and symmetrical Cerebellar function: Cannot be assessed Toes: Equivocal Gait: Cannot be assessed Results - Labs CBC & BMP: 08/17/16 04:27 08/17/16 04:27 Assessment and Plan (1) Cerebrovascular accident, embolic Status: Acute Assessment and plan: Multiple tiny acute infarcts suggestive of shower of embolism bilaterally. Patient does need a GABE to rule out vegetations even though TTE was negative. Continue Xarelto for now EEG Current Visit: Yes (2) Altered mental status Status: Acute Assessment and plan: Fever plus high WBC count plus stiff neck, raised the suspicion for meningeal involvement. However the baseline is not known. Since he has been on Xarelto and LP cannot be done, will treat him empirically. Stop Levaquin Rocephin 2 g IV every 12 Thank you for the consult Current Visit: No
--- NOTE | 2016-08-17 17:17 | Hospitalist Progress Note ---
Assessment and Plan (1) Altered mental status Status: Acute Assessment and plan: The etiology of this is not completely clear. I suspect that it is related to overmedication and those meds have been stopped. Reevaluate in a.m. Neurology consult reviewed. MRI noted. Current Visit: No (2) Rule out dementia Status: Acute Assessment and plan: The patient's home medications include olanzapine and Remeron. Unclear what his baseline mental status is. Current Visit: No (3) HTN (hypertension) Status: Chronic Current Visit: Yes Qualifiers: Hypertension type: essential hypertension Qualified Code(s): I10 - Essential (primary) hypertension (4) Bradycardia Status: Resolved Current Visit: Yes (5) Febrile illness, acute Status: Acute Assessment and plan: Unclear etiology of fever and leukocytosis. Urine and chest x-ray appear normal. Empiric treatment for meningitis has been started with Rocephin on the recommendation of neurologist. I agree. Current Visit: Yes (6) Cerebrovascular accident, embolic Status: Acute Assessment and plan: The patient is currently receiving Xarelto and will likely require transesophageal echo once mental status improves and fever resolves. Current Visit: Yes Hospitalist: Subjective Interval history: The patient was seen and examined earlier this morning with his nurse at the bedside. He was very difficult to arouse and had pinpoint pupils. His medication list was reviewed and did not include any narcotics or benzodiazepines. It did however include antipsychotics and Remeron. His decreased level of consciousness and encephalopathy is likely related to overmedication. Those medications have been held. One dose of Narcan was given and no significant change was observed. Later in the day the patient did awaken and sat in the chair and ate his lunch without assistance. He is increasingly somnolent at times. Medications were given at night due to his disruptive behavior. I believe owning has a role to play in his changing mood and behavior. Exam - Constitutional Vitals: Period Temp Pulse Resp BP Sys/Dixon Pulse Ox Last 24 Hr 98.0 F-101.7 F 66-98 14-20 110-161/56-112 93-97 Exam: Constitutional System: Mild distress. No tremulousness. Head: Normocephalic, atraumatic. Ears, Nose and Throat System: No pain or tenderness. No epistaxis or discharge Eyes System: Pupils equal, round, and reactive. Extraocular muscles intact. Neck: Supple, without adenopathy, No jugular venous distention. No thyromegaly, neck mass, or prior surgery apparent. Respiratory System: Chest clear to auscultation. Cardiovascular System: Heart with regular rate and rhythm. No murmur. GI System: Abdomen soft, nontender. Normo active bowel sounds present. Musculoskeletal System: limbs with no pedal edema. Full distal pulses. Neurological System: Lethargic and sleepy. Unresponsive to verbal stimuli. Opens eyes to sternal rub. Does not follow commands. The remainder of the neurological exam is unobtainable secondary to patient's mental status Psychiatric System: Unobtainable secondary to patient's mental status Results - Labs CBC & BMP: 08/17/16 04:27 08/17/16 04:27 Lab Results: I have reviewed the past 24 hour labs - Diagnostic Findings Procedure: Chest x-ray: image reviewed by me, report reviewed by me, MRI: image reviewed by me, report reviewed by me
[2016-08-17] MEDS: cefTRIAXone 2,000 MG in SODIUM CHLORIDE 0.9% 100 ML IV SCH (18:05)
[2016-08-17] MEDS: INSULIN GLARGINE 100 UNIT/ML SUBCUT SCH (21:21)
[2016-08-18] MEDS: ATORVASTATIN 40 MG TABLET PO SCH ×2 (00:10→21:24)
[2016-08-18] MEDS: DOCUSATE SODIUM 100 MG CAPSULE PO SCH ×3 (00:10→21:24)
[2016-08-18] MEDS: SODIUM CHLORIDE 0.45% 1,000 ML IV SCH ×2 (01:32→16:48)
[2016-08-18 05:18] LABS: Basophils % 0.2 % (0.0-0.8); Eosinophils # 0.1 10*3/uL (0.0-0.87); Hematocrit 33.1 VOL% (42.0-52.0); Hemoglobin 10.5 GM/DL (14.0-18.0); Immature Granulocytes % 0.7 %; Immature Granulocytes Absolute 0.06 #; Lymphocytes # 0.9 10*3/uL (1.4-4.0); Lymphocytes % 10.5 % (21.2-54.2); Mean Corpuscular HGB Conc 31.7 GM/DL (32-36); Mean Corpuscular Hemoglobin 27 PG (27-34); Mean Corpuscular Volume 83.8 FL (87-102); Mean Platelet Volume 11.6 FL (9.6-12.0); Monocytes # 0.8 10*3/uL (0.11-0.8); Monocytes % 8.4 % (1.7-12.7); Neutrophils # 7.1 10*3/uL (1.4-7.4); Neutrophils % 79.2 % (38.7-73.9); Platelet Count 235 T/CUMM (130-400); Red Blood Count 3.95 MC/CUMM (3.8-5.5); Red Cell Distribution Width 14.3 % (9.3-17.3)
[2016-08-18] MEDS: cefTRIAXone 2,000 MG in SODIUM CHLORIDE 0.9% 100 ML IV SCH ×2 (05:32→18:11)
[2016-08-18 05:50] LABS: Calcium 8.4 MG/DL (8.5-10.1); Magnesium 2.3 MG/DL (1.8-2.4); Osmolality,Calculated 292.3 MOS/KG (273-304); Potassium 4.1 MMOL/L (3.5-5.1)
[2016-08-18] MEDS: LACTULOSE 20 GM/30 ML UDCUP PO SCH ×2 (09:00→21:23)
[2016-08-18] MEDS ORDERED: ONDANSETRON 4 MG/2 ML VIAL ONE (09:00)
[2016-08-18] MEDS ORDERED: PROPOFOL 200 MG/20 ML VIAL IV ONE (09:00)
[2016-08-18] MEDS ORDERED: LIDOCAINE 100 MG/5 ML SYRINGE ONE (09:00)
[2016-08-18] MEDS: INSULIN LISPRO 100 UNIT/ML SUBCUT SCH ×4 (09:06→21:24)
--- NOTE | 2016-08-18 10:03 | Cardiology Progress Note ---
Assessment and Plan (1) Dementia Status: Chronic Current Visit: No (2) Acute embolic stroke Status: Acute Assessment and plan: The patient is a high risk for complications with GABE. I discussed with his . Especially given his elevated white count etc. and what appears to be an embolic potential either vascular vascular or cardiovascular recommend GABE. Will consult anesthesia and also Dr. Starks for the GABE Current Visit: Yes (3) Acute renal failure Status: Acute Current Visit: Yes (4) HTN (hypertension) Status: Chronic Current Visit: Yes Qualifiers: Hypertension type: essential hypertension Qualified Code(s): I10 - Essential (primary) hypertension (5) Febrile illness, acute Status: Acute Current Visit: Yes Cardiology - PN: Subj Interval history: Mr. Schumacher is a little more alert today but he still not very conversant. His is at the bedside and states that this is a change from his baseline that he normally is higher functioning. I am having a very difficult time getting exactly what his level of functioning is but this is clearly a change. I reviewed 's note. The patient needs a GABE and I discussed with his she is agreeable to proceed after hearing the risk benefits and options. The patient has been held n.p.o. will consult anesthesia to help with sedation get especially given his altered mental status. Exam (Progress Note) - Constitutional Vitals: Period Temp Pulse Resp BP Sys/Dixon Pulse Ox Last 24 Hr 98.3 F-99.0 F 66-91 16-20 110-202/56-94 93-99 General appearance: normal weight - Respiratory Respiratory exam: Present: clear to auscultation bilaterally (Shallow quiet respirations) - Cardiovascular Cardiovascular exam: Present: irregular rhythm - GI/Abdominal GI/Abdominal exam: Present: normal bowel sounds - Neurological Exam Neurological exam: Present: other (We will track not answer questions appropriately.). Absent: oriented X3 Result/EKG - Labs CBC & BMP: 08/18/16 04:33 08/18/16 04:33 Labs: Laboratory Results - last 24 hr 08/17/16 08/17/16 08/17/16 11:50 17:00 19:35 WBC RBC Hgb Hct MCV MCH MCHC RDW Plt Count MPV Neut % (Auto) Lymph % (Auto) Gila % (Auto) Eos % (Auto) Baso % (Auto) Neut # (Auto) Lymph # (Auto) Gila # (Auto) Eos # (Auto) Baso # (Auto) Immature Gran % Nucleated RBC % Immature Gran # Nucleated RBCs # Sodium Potassium Chloride Carbon Dioxide Anion Gap BUN Creatinine GFR Calculation BUN/Creatinine Ratio Glucose POC Glucose 239 H 165 H 265 H Calculated Osmolality Calcium Magnesium 08/18/16 08/18/16 08/18/16 04:33 04:33 07:52 WBC 9.0 D RBC 3.95 Hgb 10.5 L Hct 33.1 L MCV 83.8 L MCH 27 MCHC 31.7 L RDW 14.3 Plt Count 235 MPV 11.6 Neut % (Auto) 79.2 H Lymph % (Auto) 10.5 L Gila % (Auto) 8.4 Eos % (Auto) 1.0 Baso % (Auto) 0.2 Neut # (Auto) 7.1 Lymph # (Auto) 0.9 L Gila # (Auto) 0.8 Eos # (Auto) 0.1 Baso # (Auto) 0.0 Immature Gran % 0.7 Nucleated RBC % 0.0 Immature Gran # 0.06 Nucleated RBCs # 0.00 Sodium 141 Potassium 4.1 Chloride 106 Carbon Dioxide 27 Anion Gap 12.1 BUN 31 H Creatinine 1.80 H GFR Calculation 56 BUN/Creatinine Ratio 17.00 Glucose 182 H POC Glucose 182 H Calculated Osmolality 292.3 Calcium 8.4 L Magnesium 2.3
--- NOTE | 2016-08-18 12:58 | Cardiology Operative Report ---
Date of Procedure:: 08/18/16 Procedure: This is a preliminary GABE report. The final report will follow. The patient was sedated by anesthesia in order to perform the study. Please see their notes for details. The patient has a history of stroke as well as leukocytosis and fever. He is undergoing transesophageal echocardiogram for evaluation for a cardiac source of these issues. The echocardiogram did not demonstrate any significant cardiac abnormality. The valvular structures showed no significant dysfunction and no evidence of vegetation or infection. I did not see any thrombus in the left atrial appendage. I did not see any thromboembolic source from the heart. The aorta showed minimal plaque. He had normal left ventricular systolic function. There were no problems or complications from the procedure. Anesthesia: other (per anesthesia) Surgeon / Physician: Kannan Starks Estimated blood loss: none Condition: stable Disposition: floor
--- NOTE | 2016-08-18 13:18 | Anesthesia Post-Op ---
Anesthesia Post OP - Post Ansesthetic Evaluation Patient seen in post op: Yes Resp: within normal limits CV: within normal limits Mental: within normal limits Temp: within normal limits [id number]: within normal limits Nausea and Vomiting: within normal limits Pain: within normal limits
--- NOTE | 2016-08-18 13:59 | ECHO Report ---
Endy Kyree Exam Date: 08/18/2016 12:06 Referring Physician: Technologist: fermín Tabares ARDMS, RVT Age: 71 Ht (in): 74 Wt (lb): 217 Gender: M Exam Location: [facility] Echo Pre-op Dx: CVA Post-op Dx: BP: 168 / 80 HR: 81 Rhythm: Sinus Technical Quality: Specimens Taken Devices Implanted Medications Complications Estimated Blood Loss Proc. Components IMPRESSIONS Normal left ventricular systolic function estimated at 55-60%. Mild concentric left ventricular hypertrophy. No cardiac source of embolus is seen on the study. This includes a normal bubble study. There is also no evidence of endocarditis/vegetation. Trace mitral and tricuspid regurgitation. MEASUREMENTS (Male / Female) Normal Values FINDINGS Left Ventricle Normal left ventricular size, systolic function with ejection fraction estimated at 55-60%. There is mild concentric left ventricular hypertrophy. Right Ventricle The right ventricle is normal in size and function. Right Atrium The right atrium is mildly enlarged. Left Atrium The left atrium is normal in size. LA Appendage The LA appendage is normal. IA Septum The interatrial septum is normal by 2D, color Doppler, and bubble study. Mitral Valve Morphologically normal mitral valve trace mitral regurgitation. Aortic Valve Morphologically normal aortic valve without significant sclerosis or stenosis. There is no aortic regurgitation. Tricuspid Valve Morphologically normal tricuspid valve with trace tricuspid regurgitation. Pulmonic Valve Morphologically normal pulmonic valve without significant stenosis. There is no pulmonic regurgitation. Pericardium Normal pericardium without effusion. Aorta No significant abnormality is seen in the aorta. Kannan Starks (Electronically Signed) Final Date: 18 August 2016 13:57
[2016-08-18] MEDS: amLODIPine 10 MG TABLET PO SCH (15:41)
[2016-08-18] MEDS: RIVAROXABAN 20 MG TABLET PO SCH (15:41)
--- NOTE | 2016-08-18 15:46 | Neurology Progress Note ---
Neurology - PN : Subjective Interval history: Patient seems to be doing much better as compared to yesterday. He is sitting up in the chair and trying to talk moving all 4 extremities. GABE is unremarkable for any vegetations. Apparently patient is responding to Rocephin well. White counts are down to 9 today Exam (Progress Note) - Constitutional Vitals: Period Temp Pulse Resp BP Sys/Dixon Pulse Ox Last 24 Hr 98.3 F-99.0 F 72-84 16-20 131-202/60-94 94-99 Exam: GENERAL: Patient is in no acute distress. NECK: Neck is supple. There is no JVD. No carotid bruits present. No thyroid masses. CVS: First and second heart sounds are normal. There is no S3 present. Regular rate and rhythm. RESPIRATORY: Lungs are clear to auscultation without any rales or rhonchi. ABDOMEN: Soft and non-tender. Bowel sounds are present. There is no hepatosplenomegaly. EXT: There is no palpable edema. Peripheral pulses are present. Skin: No rashes Central Nervous system: General: Alert, awake Speech: Fluent but some dysarthric Comprehension: Fair Facial expressions: Normal Cranial Nerves: CN1/Olfactory: Normal CN II/ Optic: Normal, Visual Tinsley unreliable CN III, and : PETER & EOMI CN V: Normal & intact CN VII: face is symmetric CNVIII: Normal CN XI/X/XI/XII: Intact and Normal Motor: Bulk and Tone is normal. Strength 3/5 Sensory: Unreliable Reflexes: 1+ and symmetrical Cerebellar function: Cannot be tested Toes: Equivocal Gait: Cannot be tested Results - Labs CBC & BMP: 08/18/16 04:33 08/18/16 04:33 Assessment and Plan (1) Cerebrovascular accident, embolic Status: Acute Assessment and plan: Multiple tiny acute infarcts suggestive of shower of embolism bilaterally. Continue Xarelto for now EEG is pending Current Visit: Yes (2) Altered mental status Status: Acute Assessment and plan: Likely due to infectious encephalopathy. Continue Rocephin for now. Patient is improving We will try to take him to rehab probably by or Wednesday Current Visit: No
--- NOTE | 2016-08-18 16:35 | Hospitalist Progress Note ---
Assessment and Plan (1) Altered mental status Status: Acute Assessment and plan: The etiology of this is not completely clear. I suspect that it is related to overmedication and those meds have been stopped and he has improved. Neurology consult reviewed. I agree with the Rocephin. He is much better this morning. Current Visit: No (2) Rule out dementia Status: Acute Assessment and plan: The patient's home medications include olanzapine and Remeron. Unclear what his baseline mental status is. Current Visit: No (3) HTN (hypertension) Status: Chronic Current Visit: Yes Qualifiers: Hypertension type: essential hypertension Qualified Code(s): I10 - Essential (primary) hypertension (4) Bradycardia Status: Resolved Current Visit: Yes (5) Febrile illness, acute Status: Acute Assessment and plan: Unclear etiology of fever and leukocytosis. Urine and chest x-ray appear normal. Empiric treatment for meningitis has been started with Rocephin on the recommendation of neurologist. I agree. Current Visit: Yes (6) Cerebrovascular accident, embolic Status: Acute Assessment and plan: The patient is currently receiving Xarelto. GABE performed today does not show any vegetations. Plan for discharge to rehab later this week. Current Visit: Yes Hospitalist: Subjective Interval history: Patient seen and examined with his at the bedside. He is much better today. Sitting in the chair answering questions much more responsive. Sedative medications were held overnight. Rocephin was started. MRI was reviewed. GABE unremarkable. Plan for discharge to rehab or Wednesday according to neurology notes. Exam - Constitutional Vitals: Period Temp Pulse Resp BP Sys/Dixon Pulse Ox Last 24 Hr 98.3 F-99.2 F 72-84 16-20 131-202/60-94 94-99 Exam: Constitutional System: No distress. No tremulousness. Head: Normocephalic, atraumatic. Ears, Nose and Throat System: No pain or tenderness. No epistaxis or discharge Eyes System: Pupils equal, round, and reactive. Extraocular muscles intact. Neck: Supple, without adenopathy, No jugular venous distention. No thyromegaly, neck mass, or prior surgery apparent. Respiratory System: Chest clear to auscultation. Cardiovascular System: Heart with regular rate and rhythm. No murmur. GI System: Abdomen soft, nontender. Normo active bowel sounds present. Musculoskeletal System: limbs with no pedal edema. Full distal pulses. Neurological System: Sitting in the chair, answers questions and follows commands. Moves all 4 extremities. He has some weakness that is global and nonfocal. Psychiatric System: Unremarkable. Patient was pleasant and cooperative. Results - Labs CBC & BMP: 08/18/16 04:33 08/18/16 04:33 Lab Results: I have reviewed the past 24 hour labs
[2016-08-18] MEDS: INSULIN GLARGINE 100 UNIT/ML SUBCUT SCH (21:24)
[2016-08-19 04:15] LABS: Basophils % 0.4 % (0.0-0.8); Eosinophils # 0.1 10*3/uL (0.0-0.87); Eosinophils % 1.2 % (0.00-10.9); Hematocrit 30.3 VOL% (42.0-52.0); Hemoglobin 9.5 GM/DL (14.0-18.0); Immature Granulocytes Absolute 0.05 #; Lymphocytes # 0.9 10*3/uL (1.4-4.0); Lymphocytes % 17.4 % (21.2-54.2); Mean Corpuscular HGB Conc 31.4 GM/DL (32-36); Mean Corpuscular Hemoglobin 27 PG (27-34); Mean Corpuscular Volume 85.8 FL (87-102); Mean Platelet Volume 10.8 FL (9.6-12.0); Monocytes # 0.7 10*3/uL (0.11-0.8); Monocytes % 14.3 % (1.7-12.7); Neutrophils # 3.4 10*3/uL (1.4-7.4); Neutrophils % 65.7 % (38.7-73.9); Platelet Count 223 T/CUMM (130-400); Red Blood Count 3.53 MC/CUMM (3.8-5.5); Red Cell Distribution Width 14.5 % (9.3-17.3); White Blood Count 5.2 T/CUMM (4-12)
[2016-08-19 04:45] LABS: Calcium 8.3 MG/DL (8.5-10.1); Magnesium 2.2 MG/DL (1.8-2.4); Osmolality,Calculated 289.8 MOS/KG (273-304); Potassium 4.1 MMOL/L (3.5-5.1)
[2016-08-19] MEDS: cefTRIAXone 2,000 MG in SODIUM CHLORIDE 0.9% 100 ML IV SCH ×2 (05:13→16:42)
[2016-08-19] MEDS: SODIUM CHLORIDE 0.45% 1,000 ML IV SCH ×3 (05:14→19:45)
[2016-08-19] MEDS: hydrALAZINE 20 MG/1 ML VIAL IV PRN (05:14)
[2016-08-19] MEDS: DOCUSATE SODIUM 100 MG CAPSULE PO SCH ×2 (08:29→21:39)
[2016-08-19] MEDS: amLODIPine 10 MG TABLET PO SCH (08:30)
[2016-08-19] MEDS: ASPIRIN EC 81 MG TABLET PO SCH (08:30)
[2016-08-19] MEDS: RIVAROXABAN 20 MG TABLET PO SCH (08:30)
[2016-08-19] MEDS: LACTULOSE 20 GM/30 ML UDCUP PO SCH ×2 (08:31→21:39)
[2016-08-19] MEDS: INSULIN LISPRO 100 UNIT/ML SUBCUT SCH ×4 (09:53→21:40)
--- NOTE | 2016-08-19 10:53 | Cardiology Progress Note ---
<Mirlande Christianson E - Last Filed: 08/19/16 10:44> Assessment and Plan - Time spent with patient Time spent with patient: Less than 30 minutes (1) Bradycardia Status: Acute Assessment and plan: See plan of care listed below. Current Visit: No (2) Acute embolic stroke Status: Acute Assessment and plan: See plan of care listed below. Current Visit: Yes (3) Hypertension, uncontrolled Status: Chronic Assessment and plan: See plan of care listed below. Current Visit: No (4) Hyperlipidemia Status: Chronic Assessment and plan: See plan of care listed below. Current Visit: No Qualifiers: Hyperlipidemia type: unspecified Qualified Code(s): E78.5 - Hyperlipidemia , unspecified (5) Diabetes mellitus Status: Chronic Assessment and plan: See plan of care listed below. Current Visit: No Qualifiers: Diabetes mellitus type: type 2 Chronic kidney disease stage: stage 2 (mild ) (6) Dementia Status: Chronic Assessment and plan: See plan of care listed below. Current Visit: No (7) Chronic kidney disease Status: Chronic Assessment and plan: See plan of care listed below. Current Visit: No Qualifiers: Chronic kidney disease stage: stage 3 (moderate) Qualified Code(s): N18.3 - Chronic kidney disease, stage 3 (moderate) (8) Fever Status: Acute Current Visit: Yes Cardiology - PN: Subj Interval history: Medical Assistant Instructor: Dr. Bautista Mr. Schumacher is a 71 year old male with a history of hypertension , diabetes, hyperlipidemia, chronic kidney disease, dementia. The patient was transferred here from the [facility] for bradycardia and altered mental status. He has previously been hospitalized on numerous occasions due to confusion and has been noted to have microvascular encephalopathy in the past. This patient has lacunar disease and also diffuse small vessel disease that might suggest central embolic phenomenon. We have not seen any dysrhythmia while he is been on telemetry but certainly atrial fibrillation is a significant probability. At this time would recommend medical therapy and follow. His fever and leukocytosis suggest underlying infection that may be playing a role in his AMS He has had large swings in his blood pressure which may also contribute to the symptomatology and size of his lacunar disease. We saw him for bradycardia during his recent hospitalization as well and placed him on a holter monitor which showed sinus rhythm with average HR 71 (61-92), rare PACs/PVCs, no sustained tachycardia or bradycardia noted. Echocardiogram done 08/15/2016 revealed EF 65%, mild diastolic dysfunction, mild LVH, trace to mild MR, no evidence of elevated right-sided pressures. Carotid ultrasound done 08/15/2016 revealed no significant stenosis of either ICA origin. Potassium is 3.9, last magnesium level 2.2. Cardiac biomarkers have been within normal limits. EKG's obtained have shown sinus rhythm/sinus tachycardia with prolonged UT interval, LVH. He has had couple of pauses that were noted and reviewed. Mr. Schumacher has been working with physical therapy. He is much more alert today and is answering some questions appropriately. He has good strength in all of his extremities, maybe a very slight weakness in the left upper extremity. Plans are to discharge to rehab later this week. ASSESSMENT/PLAN: 1. BRADYCARDIA - He has had a couple of pauses which were noted and reviewed. He had a couple instances of bradycardia while sleeping, but his rates have remained stable in the 70s-80s. We will continue to monitor for dysrhythmias and avoid any chuy blocking agents. Will further discuss with Dr. Mckeon and await his recommendations. 2. ACUTE EMBOLIC STROKE - Neurology has been consulted. The patient is currently on Xarelto and aspirin for presumed cardioembolic source of emboli or vascular vascular emboli. The patient underwent GABE yesterday and the valvular structures showed no significant dysfunction no evidence of vegetation or infection. No thrombus was seen in the left atrial appendage. No thromboembolic source from the heart was seen. The aorta showed minimal plaque. 3. HYPERTENSION -has been labile since admission. He has had blood pressures up to 200/96 and as low as 102/68. Blood pressure is currently well controlled. We will continue to monitor and adjust medications accordingly. 4. HYPERLIPIDEMIA - Continue lipid lowering agent. Triglycerides 163, cholesterol 228, LDL 152, HDL 44. 5. DIABETES MELLITUS - Patient is receiving accuchecks with sliding scale insulin. Will defer further management to hospital medicine. 6. DEMENTIA - This is chronic. Patient was undergoing treatment at the [facility] when he had a change in mental status. 7. CHRONIC KIDNEY DISEASE -creatinine currently 1.8. This is stable and appears to be around his baseline. 8. FEVER - Mr. Schumacher's temperature peak has been 101.7. UA, UC, BC, CXR were obtained and he was started on prophylactic antibiotics with renal dosing. Chest xray did not show any acute processes. Urine culture was negative. His WBC has risen from 4.4 to 11.3, and now to 15.7. Empiric treatment for meningitis has been started with Rocephin on the recommendation of the neurologist. Dr. Mckeon to follow with further plan and addendum. Exam (Progress Note) - Constitutional Vitals: Period Temp Pulse Resp BP Sys/Dixon Pulse Ox Last 24 Hr 98.4 F-99.9 F 75-81 18-20 146-183/65-81 95-97 Exam: General: Present: Appears Well, No Apparent Distress. Pleasant and cooperative. Appears comfortable. HEENT: Present: PERRL, Normocephaly, atraumatic. Mucus Membranes Moist. No jaundice noted. Conjunctiva moist and clear, sclerae anicteric Neck: Present: Supple Neck, Midline Trachea, No Masses, No tenderness Cardiac: Present: Regular Rate and Rhythm, No Murmur Lungs: Present: Clear to auscultation bilaterally with shallow quiet respirations, no wheeze, rhonchi, rales. Neuro: Present: Awake, alert, and oriented x3. Moves all extremities well without hemiparesis or paralysis, very slight weakness in left upper arm. Grossly Intact. Absent: Resting Tremor, Essential Tremor Abdomen: Present: Soft, Active Bowel Sounds, No Masses, Non-Tender, nondistended. No abdominal bruit or thrill noted. Skin: Present: Clear. Absent: Rash, No skin breakdown. Back: Normal inspection, no vertebral tenderness. Musculoskeletal: Present: No Fluid Collection, No Pain, Normal Range of Motion Extremities: Present: Normal Gait, No Clubbing, No Cyanosis, Upper Extr. Pulses 2+, Lower Extr. Pulses 2+, No edema. Capillary refill less than 3 seconds. Result/EKG - Labs CBC & BMP: 08/19/16 03:57 08/19/16 03:57 Lab Results: I have reviewed the past 24 hour labs Labs: Laboratory Results - last 24 hr 08/18/16 08/18/16 08/18/16 11:13 15:42 19:53 WBC RBC Hgb Hct MCV MCH MCHC RDW Plt Count MPV Neut % (Auto) Lymph % (Auto) [place] % (Auto) Eos % (Auto) Baso % (Auto) Neut # (Auto) Lymph # (Auto) [place] # (Auto) Eos # (Auto) Baso # (Auto) Immature Gran % Nucleated RBC % Immature Gran # Nucleated RBCs # Sodium Potassium Chloride Carbon Dioxide Anion Gap BUN Creatinine GFR Calculation BUN/Creatinine Ratio Glucose POC Glucose 190 H 169 H 364 H Calculated Osmolality Calcium Magnesium 08/19/16 08/19/16 08/19/16 03:57 03:57 07:01 WBC 5.2 D RBC 3.53 L Hgb 9.5 L Hct 30.3 L MCV 85.8 L MCH 27 MCHC 31.4 L RDW 14.5 Plt Count 223 MPV 10.8 Neut % (Auto) 65.7 Lymph % (Auto) 17.4 L [place] % (Auto) 14.3 H Eos % (Auto) 1.2 Baso % (Auto) 0.4 Neut # (Auto) 3.4 Lymph # (Auto) 0.9 L [place] # (Auto) 0.7 Eos # (Auto) 0.1 Baso # (Auto) 0.0 Immature Gran % 1.0 Nucleated RBC % 0.0 Immature Gran # 0.05 Nucleated RBCs # 0.00 Sodium 144 Potassium 4.1 Chloride 109 H Carbon Dioxide 28 Anion Gap 11.1 BUN 29 H Creatinine 1.80 H GFR Calculation 56 BUN/Creatinine Ratio 16.00 Glucose 69 L POC Glucose 91 Calculated Osmolality 289.8 Calcium 8.3 L Magnesium 2.2 - EKG EKG results: interpreted by me, sinus rhythm <Jennifer Mckeona - Last Filed: 08/19/16 13:43> Assessment and Plan (1) Dementia Status: Chronic Current Visit: No (2) Acute embolic stroke Status: Acute Assessment and plan: No evidence of cardiac source emboli either from or through the heart by trans- esophageal echocardiogram yesterday. Current Visit: Yes (3) Acute renal failure Status: Acute Current Visit: Yes (4) HTN (hypertension) Status: Chronic Current Visit: Yes Qualifiers: Hypertension type: essential hypertension Qualified Code(s): I10 - Essential (primary) hypertension (5) Febrile illness, acute Status: Acute Current Visit: Yes Cardiology - PN: Subj Interval history: I discussed with Mr. Schumacher and his . He had unremarkable transesophageal echocardiogram yesterday. He has not had any additional pauses since early in his admission. I think these were medication related. I discussed with his and recommended continue his current therapy. Nothing further to add from a cardiovascular standpoint. If he has recurrent pauses please do not hesitate to reconsult. Exam (Progress Note) - Constitutional Vitals: Period Temp Pulse Resp BP Sys/Dixon Pulse Ox Last 24 Hr 98.4 F-99.9 F 75-90 18-20 146-183/65-81 93-97 Result/EKG - Labs CBC & BMP: 08/19/16 03:57 08/19/16 03:57 Labs: Laboratory Results - last 24 hr 08/18/16 08/18/16 08/19/16 15:42 19:53 03:57 WBC 5.2 D RBC 3.53 L Hgb 9.5 L Hct 30.3 L MCV 85.8 L MCH 27 MCHC 31.4 L RDW 14.5 Plt Count 223 MPV 10.8 Neut % (Auto) 65.7 Lymph % (Auto) 17.4 L [place] % (Auto) 14.3 H Eos % (Auto) 1.2 Baso % (Auto) 0.4 Neut # (Auto) 3.4 Lymph # (Auto) 0.9 L [place] # (Auto) 0.7 Eos # (Auto) 0.1 Baso # (Auto) 0.0 Immature Gran % 1.0 Nucleated RBC % 0.0 Immature Gran # 0.05 Nucleated RBCs # 0.00 Sodium Potassium Chloride Carbon Dioxide Anion Gap BUN Creatinine GFR Calculation BUN/Creatinine Ratio Glucose POC Glucose 169 H 364 H Calculated Osmolality Calcium Magnesium 08/19/16 08/19/16 08/19/16 03:57 07:01 11:58 WBC RBC Hgb Hct MCV MCH MCHC RDW Plt Count MPV Neut % (Auto) Lymph % (Auto) [place] % (Auto) Eos % (Auto) Baso % (Auto) Neut # (Auto) Lymph # (Auto) [place] # (Auto) Eos # (Auto) Baso # (Auto) Immature Gran % Nucleated RBC % Immature Gran # Nucleated RBCs # Sodium 144 Potassium 4.1 Chloride 109 H Carbon Dioxide 28 Anion Gap 11.1 BUN 29 H Creatinine 1.80 H GFR Calculation 56 BUN/Creatinine Ratio 16.00 Glucose 69 L POC Glucose 91 171 H Calculated Osmolality 289.8 Calcium 8.3 L Magnesium 2.2
--- NOTE | 2016-08-19 15:41 | Neurology Progress Note ---
Neurology - PN : Subjective Interval history: Patient seems to be doing much better. He is getting up and walking with mod assist. His speech is fluent. Swallowing is good. Exam (Progress Note) - Constitutional Vitals: Period Temp Pulse Resp BP Sys/Dixon Pulse Ox Last 24 Hr 98.4 F-99.9 F 75-90 18-20 146-183/65-81 93-97 Exam: GENERAL: Patient is in no acute distress. NECK: Neck is supple. There is no JVD. No carotid bruits present. No thyroid masses. CVS: First and second heart sounds are normal. There is no S3 present. Regular rate and rhythm. RESPIRATORY: Lungs are clear to auscultation without any rales or rhonchi. ABDOMEN: Soft and non-tender. Bowel sounds are present. There is no hepatosplenomegaly. EXT: There is no palpable edema. Peripheral pulses are present. Skin: No rashes Central Nervous system: General: Alert, awake Speech: Fluent but some dysarthric Comprehension: Fair Facial expressions: Normal Cranial Nerves: CN1/Olfactory: Normal CN II/ Optic: Normal, Visual Tinsley unreliable CN III, and : PETER & EOMI CN V: Normal & intact CN VII: face is symmetric CNVIII: Normal CN XI/X/XI/XII: Intact and Normal Motor: Bulk and Tone is normal. Strength 3/5 Sensory: Unreliable Reflexes: 1+ and symmetrical Cerebellar function: Cannot be tested Toes: Equivocal Gait: Cannot be tested Results - Labs CBC & BMP: 08/19/16 03:57 08/19/16 03:57 Assessment and Plan (1) Cerebrovascular accident, embolic Status: Acute Assessment and plan: Multiple tiny acute infarcts suggestive of shower of embolism bilaterally. Continue Xarelto for now Awaiting TMR placement Sign off please call as needed Current Visit: Yes (2) Altered mental status Status: Acute Assessment and plan: Likely due to infectious encephalopathy. Continue Rocephin for now. Patient is improving We will try to take him to rehab probably by or Wednesday Current Visit: No
--- NOTE | 2016-08-19 17:33 | Hospitalist Progress Note ---
Assessment and Plan (1) Altered mental status Status: Acute Assessment and plan: Pt. is alert today. Sedative medications still being held. Neuro is following. Continue Rocephin per their recommendations. Current Visit: Yes (2) Cerebrovascular accident, embolic Status: Acute Assessment and plan: Pt. will be discharged later this week to rehab. Continue current therapy. Current Visit: Yes (3) Febrile illness, acute Status: Acute Assessment and plan: Low grade fevers have been noted today. Continue Rochepin antibiotics. Current Visit: Yes (4) Diabetes mellitus Status: Chronic Assessment and plan: Pt. was noted to be hypoglycemic this morning but blood sugars have began to rise. Will monitor trends overnight. SSI order for coverage/dextrose as needed. Current Visit: No Qualifiers: Diabetes mellitus type: type 2 Chronic kidney disease stage: stage 2 (mild ) Hospitalist: Subjective Interval history: Pt seen and examined. Lab and chart reviewed. is present. Patient is up in chair with no difficulties. Pt. states that he is feeling good today. He is alert. The patient does not express any issues. No apparent distress noted. Exam - Constitutional Vitals: Period Temp Pulse Resp BP Sys/Dixon Pulse Ox Last 24 Hr 98.4 F-99.9 F 75-90 18-20 146-183/65-81 93-97 General appearance: normal weight, no acute distress - Head Head exam: Present: normal inspection, normocephalic - Eye Eye exam: Present: EOMI. Absent: scleral icterus Pupils: Present: PETER - Neck Neck exam: Present: normal inspection - Respiratory Respiratory exam: Present: clear to auscultation bilaterally. Absent: wheezes - Cardiovascular Cardiovascular exam: Present: regular rate and rhythm - GI/Abdominal GI/Abdominal exam: Present: normal bowel sounds, soft. Absent: tenderness - Extremities Exam Extremities exam: Present: normal capillary refill, full ROM. Absent: edema - Neurological Exam Neurological exam: Present: alert - Expanded Neurological Exam Coma Scale Eye Opening: Spontaneous Coma Scale Motor Response: Obeys Commands Coma Scale Verbal Response: Oriented Coma Scale Total: 15 - Psychiatric Psychiatric exam: Present: normal affect, normal mood - Skin Skin exam: Present: normal color, warm, dry Results - Labs CBC & BMP: 08/19/16 03:57 08/19/16 03:57 Lab Results: I have reviewed the past 24 hour labs
--- NOTE | 2016-08-19 20:02 | Electroencephalogram ---
DATE OF STUDY: 08/18/16 HISTORY: A 71-year-old patient with a history of altered mental status. INTRODUCTION: A digital EEG was performed using the standard 10/20 system of electrode placement wit h one channel of EKG monitoring. Photic stimulation is performed. DESCRIPTION OF RECORD: The background is fair, well organized, consists of 7 to 8 Hz slow amplitude bilaterally symmetrical rhythm. Photic stimulation elicits driving response at all flash frequencies . Hyperventilation produced no abnormalities. There are no focal, sharp wave, spike or wave activit y seen. Heart rate is 74 beats per minute. IMPRESSION: ABNORMAL ELECTROENCEPHALOGRAM DUE TO GENERALIZED SLOWING. 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 No epileptiform/seizure activity seen. Clinical correlation is suggested.
[2016-08-19] MEDS: ATORVASTATIN 40 MG TABLET PO SCH (21:39)
[2016-08-19] MEDS: INSULIN GLARGINE 100 UNIT/ML SUBCUT SCH (21:40)
[2016-08-20 05:26] LABS: Basophils % 0.7 % (0.0-0.8); Eosinophils # 0.1 10*3/uL (0.0-0.87); Eosinophils % 3.1 % (0.00-10.9); Hematocrit 30.6 VOL% (42.0-52.0); Hemoglobin 9.7 GM/DL (14.0-18.0); Immature Granulocytes % 0.9 %; Immature Granulocytes Absolute 0.04 #; Lymphocytes # 1.3 10*3/uL (1.4-4.0); Lymphocytes % 28.3 % (21.2-54.2); Mean Corpuscular HGB Conc 31.7 GM/DL (32-36); Mean Corpuscular Hemoglobin 27 PG (27-34); Mean Corpuscular Volume 85.2 FL (87-102); Mean Platelet Volume 10.8 FL (9.6-12.0); Monocytes # 0.6 10*3/uL (0.11-0.8); Monocytes % 14.1 % (1.7-12.7); Neutrophils # 2.4 10*3/uL (1.4-7.4); Neutrophils % 52.9 % (38.7-73.9); Platelet Count 226 T/CUMM (130-400); Red Blood Count 3.59 MC/CUMM (3.8-5.5); Red Cell Distribution Width 14.2 % (9.3-17.3); White Blood Count 4.5 T/CUMM (4-12)
[2016-08-20] MEDS: hydrALAZINE 20 MG/1 ML VIAL IV PRN (05:37)
[2016-08-20] MEDS: cefTRIAXone 2,000 MG in SODIUM CHLORIDE 0.9% 100 ML IV SCH (05:37)
[2016-08-20 05:52] LABS: Calcium 8.3 MG/DL (8.5-10.1); Magnesium 2.2 MG/DL (1.8-2.4); Osmolality,Calculated 291.7 MOS/KG (273-304)
[2016-08-20] MEDS: SODIUM CHLORIDE 0.45% 1,000 ML IV SCH (06:45)
[2016-08-20] MEDS: DOCUSATE SODIUM 100 MG CAPSULE PO SCH (08:14)
[2016-08-20] MEDS: amLODIPine 10 MG TABLET PO SCH (08:14)
[2016-08-20] MEDS: LACTULOSE 20 GM/30 ML UDCUP PO SCH (08:14)
[2016-08-20] MEDS: RIVAROXABAN 20 MG TABLET PO SCH (08:14)
[2016-08-20] MEDS: INSULIN LISPRO 100 UNIT/ML SUBCUT SCH ×2 (08:15→11:59)
--- NOTE | 2016-08-20 08:23 | EKG Report ---
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
--- NOTE | 2016-08-20 09:20 | Cardiology Progress Note ---
<Mirlande Christianson E - Last Filed: 08/20/16 08:58> Assessment and Plan - Time spent with patient Time spent with patient: Less than 30 minutes (1) Bradycardia Status: Acute Assessment and plan: See plan of care listed below. Current Visit: No (2) Acute embolic stroke Status: Acute Assessment and plan: See plan of care listed below. Current Visit: Yes (3) Hypertension, uncontrolled Status: Chronic Assessment and plan: See plan of care listed below. Current Visit: No (4) Hyperlipidemia Status: Chronic Assessment and plan: See plan of care listed below. Current Visit: No Qualifiers: Hyperlipidemia type: unspecified Qualified Code(s): E78.5 - Hyperlipidemia , unspecified (5) Diabetes mellitus Status: Chronic Assessment and plan: See plan of care listed below. Current Visit: No Qualifiers: Diabetes mellitus type: type 2 Chronic kidney disease stage: stage 2 (mild ) (6) Dementia Status: Chronic Assessment and plan: See plan of care listed below. Current Visit: No (7) Chronic kidney disease Status: Chronic Assessment and plan: See plan of care listed below. Current Visit: No Qualifiers: Chronic kidney disease stage: stage 3 (moderate) Qualified Code(s): N18.3 - Chronic kidney disease, stage 3 (moderate) (8) Fever Status: Acute Assessment and plan: See plan of care listed below. Current Visit: Yes (9) Mobitz (type) I (Wenckebach's) atrioventricular block Status: Acute Assessment and plan: See plan of care listed below. Current Visit: Yes Cardiology - PN: Subj Interval history: Grazing Examiner: Dr. Bautista Mr. Schumacher is a 71 year old male with a history of hypertension , diabetes, hyperlipidemia, chronic kidney disease, dementia. The patient was transferred here from the [facility] for bradycardia and altered mental status. He has previously been hospitalized on numerous occasions due to confusion and has been noted to have microvascular encephalopathy in the past. This patient has lacunar disease and also diffuse small vessel disease that might suggest central embolic phenomenon. We have not seen any dysrhythmia while he is been on telemetry but certainly atrial fibrillation is a significant probability. At this time would recommend medical therapy and follow. His fever and leukocytosis suggest underlying infection that may be playing a role in his AMS He has had large swings in his blood pressure which may also contribute to the symptomatology and size of his lacunar disease. We saw him for bradycardia during his recent hospitalization as well and placed him on a holter monitor which showed sinus rhythm with average HR 71 (61-92), rare PACs/PVCs, no sustained tachycardia or bradycardia noted. Echocardiogram done 08/15/2016 revealed EF 65%, mild diastolic dysfunction, mild LVH, trace to mild MR, no evidence of elevated right-sided pressures. Carotid ultrasound done 08/15/2016 revealed no significant stenosis of either ICA origin. Potassium is 3.9, last magnesium level 2.2. Cardiac biomarkers have been within normal limits. EKG's obtained have shown sinus rhythm/sinus tachycardia with prolonged IN interval, LVH. He has had couple of pauses that were noted and reviewed. He has continued to do well and is planned for discharge to rehab today or tomorrow. ASSESSMENT/PLAN: 1. BRADYCARDIA - He has had a couple of pauses which were noted and reviewed. We actually signed off for Mr. Schumacher since he was stable; however last night Dr. Mckeon was called regarding a change in the patient's rhythm. He was noted to be in second-degree heart block, type I Wenckebach. Would continue to avoid any chuy blocking agents. Will further discuss with Dr. Mckeon and await his recommendations. 2. ACUTE EMBOLIC STROKE - Neurology has been consulted. The patient is currently on Xarelto and aspirin for presumed cardioembolic source of emboli or vascular vascular emboli. He had an unremarkable GABE in 08/18/2016 which was discussed with the patient and his family. Is recommended he continue with current therapy. 3. HYPERTENSION -has been labile since admission. He has had blood pressures up to 200/96 and as low as 102/68. Blood pressure is currently well controlled. 4. HYPERLIPIDEMIA - Continue lipid lowering agent. Triglycerides 163, cholesterol 228, LDL 152, HDL 44. 5. DIABETES MELLITUS - Patient is receiving accuchecks with sliding scale insulin. Will defer further management to hospital medicine. 6. DEMENTIA - This is chronic. Patient was undergoing treatment at the [facility] when he had a change in mental status. 7. CHRONIC KIDNEY DISEASE -creatinine currently 1.8. This is stable and appears to be around his baseline. 8. FEVER - Mr. Schumacher's temperature peak has been 101.7. UA, UC, BC, CXR were obtained and he was started on prophylactic antibiotics with renal dosing. Chest xray did not show any acute processes. Urine culture was negative. His WBC has risen from 4.4 to 11.3, up to 15.7. Empiric treatment for meningitis was started with Rocephin on the recommendation of the neurologist. 9. MOBITZ TYPE I AV BLOCK - We actually signed off for Mr. Schumacher since he was stable; however last night Dr. Mckeon was called regarding a change in the patient's rhythm. He was noted to be in second-degree heart block, type I Wenckebach. He has had a couple recurrences of this throughout the night, mostly during the hours of sleep. Would continue to avoid any chuy blocking agents. Will further discuss with Dr. Mckeon and await his recommendations. We will await further recommendations from Dr. Mckeon. Exam (Progress Note) - Constitutional Vitals: Period Temp Pulse Resp BP Sys/Dixon Pulse Ox Last 24 Hr 98.4 F-99.3 F 60-94 18-20 162-191/72-86 93-99 Exam: General: Present: Appears Well, No Apparent Distress. Pleasant and cooperative. Appears comfortable. HEENT: Present: PERRL, Normocephaly, atraumatic. Mucus Membranes Moist. No jaundice noted. Conjunctiva moist and clear, sclerae anicteric Neck: Present: Supple Neck, Midline Trachea, No Masses, No tenderness Cardiac: Present: Regular Rate and Rhythm, No Murmur Lungs: Present: Clear to auscultation bilaterally with shallow quiet respirations, no wheeze, rhonchi, rales. Neuro: Present: Awake, alert, and oriented x3. Moves all extremities well without hemiparesis or paralysis, very slight weakness in left upper arm. Grossly Intact. Absent: Resting Tremor, Essential Tremor Abdomen: Present: Soft, Active Bowel Sounds, No Masses, Non-Tender, nondistended. No abdominal bruit or thrill noted. Skin: Present: Clear. Absent: Rash, No skin breakdown. Back: Normal inspection, no vertebral tenderness. Musculoskeletal: Present: No Fluid Collection, No Pain, Normal Range of Motion Extremities: Present: Normal Gait, No Clubbing, No Cyanosis, Upper Extr. Pulses 2+, Lower Extr. Pulses 2+, No edema. Capillary refill less than 3 seconds. Result/EKG - Labs CBC & BMP: 08/20/16 05:05 08/20/16 05:05 Lab Results: I have reviewed the past 24 hour labs Labs: Laboratory Results - last 24 hr 08/19/16 08/19/16 08/19/16 11:58 15:59 20:28 WBC RBC Hgb Hct MCV MCH MCHC RDW Plt Count MPV Neut % (Auto) Lymph % (Auto) [place] % (Auto) Eos % (Auto) Baso % (Auto) Neut # (Auto) Lymph # (Auto) [place] # (Auto) Eos # (Auto) Baso # (Auto) Immature Gran % Nucleated RBC % Immature Gran # Nucleated RBCs # Sodium Potassium Chloride Carbon Dioxide Anion Gap BUN Creatinine GFR Calculation BUN/Creatinine Ratio Glucose POC Glucose 171 H 234 H 176 H Calculated Osmolality Calcium Magnesium 08/20/16 08/20/16 08/20/16 05:05 05:05 07:40 WBC 4.5 RBC 3.59 L Hgb 9.7 L Hct 30.6 L MCV 85.2 L MCH 27 MCHC 31.7 L RDW 14.2 Plt Count 226 MPV 10.8 Neut % (Auto) 52.9 Lymph % (Auto) 28.3 [place] % (Auto) 14.1 H Eos % (Auto) 3.1 Baso % (Auto) 0.7 Neut # (Auto) 2.4 Lymph # (Auto) 1.3 L [place] # (Auto) 0.6 Eos # (Auto) 0.1 Baso # (Auto) 0.0 Immature Gran % 0.9 Nucleated RBC % 0.0 Immature Gran # 0.04 Nucleated RBCs # 0.00 Sodium 145 Potassium 4.0 Chloride 110 H Carbon Dioxide 27 Anion Gap 12.0 BUN 23 H Creatinine 1.60 H GFR Calculation 67 BUN/Creatinine Ratio 14.00 Glucose 99 POC Glucose 125 H Calculated Osmolality 291.7 Calcium 8.3 L Magnesium 2.2 - EKG EKG results: interpreted by me, sinus rhythm (With intermittent Mobitz type I block) <Maty Mckeon - Last Filed: 08/20/16 14:01> Assessment and Plan (1) Dementia Status: Chronic Current Visit: No (2) Acute embolic stroke Status: Acute Current Visit: Yes (3) Acute renal failure Status: Acute Current Visit: Yes (4) HTN (hypertension) Status: Chronic Current Visit: Yes Qualifiers: Hypertension type: essential hypertension Qualified Code(s): I10 - Essential (primary) hypertension (5) Febrile illness, acute Status: Acute Current Visit: Yes (6) Mobitz type 1 second degree AV block Status: Acute Assessment and plan: This appears to be transient and is asymptomatic with no bradycardia rate has been controlled. Continue to observe him in medical facility Current Visit: Yes Cardiology - PN: Subj Interval history: I saw and examined Ms. Christianson. I have discussed with Dr. Hdz. I was called last night because the patient developed Mobitz type I second-degree AV block. The patient did not have bradycardia. Plans for transfer for rehab at [facility] been noted and discussed with Dr. Hdz. I do not think at this time we need to do anything further from a cardiovascular standpoint he would be nice if he could remain on the monitor remotely at rehab. Nothing further to add at this time. If needed while at rehab please reconsult [facility] Exam (Progress Note) - Constitutional Vitals: Period Temp Pulse Resp BP Sys/Dixon Pulse Ox Last 24 Hr 98 F-99.3 F 58-94 16-20 162-191/75-86 94-99 Exam: The patient is more alert and conversant today he has no complaints. This transient heart block may very well be related to sleep apnea. He always appear to occur at night. Cardiovascular sites a regular rhythm at about 80 no gallop or rub has coarse breath sounds abdominal exam is soft has no lower extremity edema Result/EKG - Labs CBC & BMP: 08/20/16 05:05 08/20/16 05:05 Labs: Laboratory Results - last 24 hr 08/19/16 08/19/16 08/20/16 15:59 20:28 05:05 WBC 4.5 RBC 3.59 L Hgb 9.7 L Hct 30.6 L MCV 85.2 L MCH 27 MCHC 31.7 L RDW 14.2 Plt Count 226 MPV 10.8 Neut % (Auto) 52.9 Lymph % (Auto) 28.3 [place] % (Auto) 14.1 H Eos % (Auto) 3.1 Baso % (Auto) 0.7 Neut # (Auto) 2.4 Lymph # (Auto) 1.3 L [place] # (Auto) 0.6 Eos # (Auto) 0.1 Baso # (Auto) 0.0 Immature Gran % 0.9 Nucleated RBC % 0.0 Immature Gran # 0.04 Nucleated RBCs # 0.00 Sodium Potassium Chloride Carbon Dioxide Anion Gap BUN Creatinine GFR Calculation BUN/Creatinine Ratio Glucose POC Glucose 234 H 176 H Calculated Osmolality Calcium Magnesium 08/20/16 08/20/16 08/20/16 05:05 07:40 11:51 WBC RBC Hgb Hct MCV MCH MCHC RDW Plt Count MPV Neut % (Auto) Lymph % (Auto) [place] % (Auto) Eos % (Auto) Baso % (Auto) Neut # (Auto) Lymph # (Auto) [place] # (Auto) Eos # (Auto) Baso # (Auto) Immature Gran % Nucleated RBC % Immature Gran # Nucleated RBCs # Sodium 145 Potassium 4.0 Chloride 110 H Carbon Dioxide 27 Anion Gap 12.0 BUN 23 H Creatinine 1.60 H GFR Calculation 67 BUN/Creatinine Ratio 14.00 Glucose 99 POC Glucose 125 H 262 H Calculated Osmolality 291.7 Calcium 8.3 L Magnesium 2.2
--- NOTE | 2016-08-20 11:11 | Discharge Summary ---
<Adrien Jones - Last Filed: 08/20/16 14:49> Hospital Course - Hospital Course Hospital Course: Mr. Schumacher is a 71-year-old male with a history of hypertension , diabetes, chronic dementia transferred from [facility] on 08/14 with altered mental status. Patient reportedly had a blood sugar of 26. Patient was aroused enough to eat his meal but his mental status did not improve. He was sent to the ED for evaluation. He was lethargic and would not respond to treatment of Narcan. Pt. would respond to painful stimuli only by opening his eyes but didn't answer any questions. Pt. exhibited some left sided weakness. Pt.'s CT was negative and labs were unremarkable. Pt. was admitted for further evaluation. MRI showed multiple tiny scattered acute lacunar infarcts involving the left hemispheric casper radiata both occipital lobes and right posterior cerebellum consistent with a central source for microemboli. Both cardiology and neurology were consulted to evaluate the patient during his hospital course. Cardiology evaluated patient for junctional rhythm. Pt. also experienced fever during his stay with temps peaking greater than 101 and WBC increased from 4.4 to 11.3 and 15.7. UA, UC, BC, and CXR were obtained and empiric antibiotics were started. Neurology began to follow. GABE was suggested to rule out vegetations. Treatment of Rocephin antibiotic was started emprically for meningitis. Cardiology signed off as patient was stable but was contacted after pt went into second-degree heart block, type I Wenckebach. Dioni blocking agents were held and patient was stablized. Pt's mental status improved and patient was able to ambulate with assist and even sit in the chair. Pt. is stable now and can be discharged to [facility]. I have personally seen and examined this patient today. I agree with the above note as prepared by the advanced practice provider. I agree with the assessment and plan. The case was discussed with cardiology. I agree with the above documentation performed by Adrien Jones NP Diagnosis - Discharge Diagnosis (1) Altered mental status Status: Acute (2) Cerebrovascular accident, embolic Status: Acute (3) Febrile illness, acute Status: Acute (4) Diabetes mellitus Status: Chronic Discharge Plan - Discharge Data Disposition: Swing Bed, Hos Based, [facility] [place] - Discharge Medications New Insulin Glargine [Lantus] 10 unit SUBCUT BEDTIME unit Insulin Lispro [HumaLOG] See Protocol SUBCUT ACHS unit Continue Pantoprazole Tab [Protonix Tab] 40 mg PO DAILY Folic Acid Tab 1 mg PO DAILY NIFEdipine XL TAB [Procardia Xl] 90 mg PO DAILY OLANZapine TAB [ZyPREXA Tab] 5 mg PO BEDTIME hydrALAZINE TAB [Apresoline Tab] 100 mg PO TID Discontinued Aspirin [Ecotrin] 81 mg PO DAILY Insulin Lispro [HumaLOG] See Protocol SUBCUT DAILY Insulin Glargine [Lantus] 10 unit SUBCUT BEDTIME Rosuvastatin [Crestor] 40 mg PO DAILY Valsartan [Diovan] 40 mg PO DAILY Mirtazapine [Remeron] 15 mg PO BEDTIME No Action Mirtazapine [Remeron] 15 mg PO BEDTIME Valsartan [Diovan] 40 mg PO DAILY Rosuvastatin Calcium [Crestor] 40 mg PO DAILY Aspirin EC Tab 81 mg PO DAILY - Follow Up or Referral - Forms/Instructions Exam - Constitutional Vitals: Period Temp Pulse Resp BP Sys/Dixon Pulse Ox Last 24 Hr 98 F-99.3 F 58-94 16-20 162-191/75-86 94-99 Discharge Results Procedures and tests throughout hospitalization: Pending Orders 08/16/16 11:41 Blood Culture Routine Labs on day of discharge: Labs from last 24 hours 08/20/16 08/20/16 08/20/16 11:51 07:40 05:05 WBC RBC Hgb Hct MCV MCH MCHC RDW Plt Count MPV Neut % (Auto) Lymph % (Auto) [place] % (Auto) Eos % (Auto) Baso % (Auto) Neut # (Auto) Lymph # (Auto) [place] # (Auto) Eos # (Auto) Baso # (Auto) Immature Gran % Nucleated RBC % Immature Gran # Nucleated RBCs # Sodium 145 Potassium 4.0 Chloride 110 H Carbon Dioxide 27 Anion Gap 12.0 BUN 23 H Creatinine 1.60 H GFR Calculation 67 BUN/Creatinine Ratio 14.00 Glucose 99 POC Glucose 262 H 125 H Calculated Osmolality 291.7 Calcium 8.3 L Magnesium 2.2 08/20/16 08/19/16 08/19/16 05:05 20:28 15:59 WBC 4.5 RBC 3.59 L Hgb 9.7 L Hct 30.6 L MCV 85.2 L MCH 27 MCHC 31.7 L RDW 14.2 Plt Count 226 MPV 10.8 Neut % (Auto) 52.9 Lymph % (Auto) 28.3 [place] % (Auto) 14.1 H Eos % (Auto) 3.1 Baso % (Auto) 0.7 Neut # (Auto) 2.4 Lymph # (Auto) 1.3 L [place] # (Auto) 0.6 Eos # (Auto) 0.1 Baso # (Auto) 0.0 Immature Gran % 0.9 Nucleated RBC % 0.0 Immature Gran # 0.04 Nucleated RBCs # 0.00 Sodium Potassium Chloride Carbon Dioxide Anion Gap BUN Creatinine GFR Calculation BUN/Creatinine Ratio Glucose POC Glucose 176 H 234 H Calculated Osmolality Calcium Magnesium Preliminary micro results at discharge 08/16/16 11:41 Blood Culture - Preliminary Blood No growth at 3 days 08/16/16 11:41 Blood Culture - Preliminary Blood No growth at 3 days DS: Provider Date of admission: 08/14/16 14:50 Primary care physician: . No PCP Attending physician on admission: Petra Munroe MD Consults: 08/15/16 11:13 Consult to Occupational Therapy [CONS] Routine Reason for Occupational Therapy: Evaluate and Treat Consult to Physical Therapy [CONS] Routine Reason for Physical Therapy: Evaluate and Treat 08/15/16 12:25 Consult to Physician [CONS] Routine Comment: Consulting Provider: Matt Cabral Consult Notification Comment: Neuro not avaliable this weekend, will call on wednesday. 08/16/16 09:55 Consult to Physician [CONS] Routine Comment: new cva, now with bradycardia Consulting Provider: Eduar Castaneda Person Notified: Adam Date Notified: 08/17/16 Time Notified: 07:55 08/16/16 09:59 Consult to Physician [CONS] Routine Comment: Consulting Provider: Consult to Specialist Group: Cardiology 08/16/16 11:59 Consult to Case Mgmt/Social Srvs [CONS] Routine Reason for Case Mgmt/Social Srvs: Discharge Planning Consult Comment: [facility] 08/18/16 09:58 Consult to Physician [CONS] Routine Comment: Consulting Provider: 08/18/16 09:59 Consult to Physician [CONS] Routine Comment: administrative professional for GABE Consulting Provider: [facility] Discharging clinician: Adrien Jones NP <Luana Hdz - Last Filed: 08/20/16 15:48> Hospital Course - Time spent with patient Time with patient DS: Greater than 30 minutes (Total discharge time for this patient, including [id number] time, clinical documentation, medication reconciliation, and discharge planning was 46 minutes.) Diagnosis - Discharge Diagnosis (1) Altered mental status Status: Acute (2) Rule out dementia Status: Acute (3) HTN (hypertension) Status: Chronic (4) Febrile illness, acute Status: Acute (5) Cerebrovascular accident, embolic Status: Acute Discharge Plan - Discharge Data Condition at Discharge: Stable Discharge Diet: advance to your usual diet Activity: as per physical therapy Hygiene: no restrictions Contact your physician if you experience:: fever over 101, Shortness of breath, pain uncontrolled by pain medications DS: Provider Expected date of discharge: 08/20/16
[2016-08-20 12:01] VITALS: BP 166/75
== END 2016-08-20 15:13 | DRG 64 ==
LOC: EDUNIT# → EDBD → N.ED 12:07 → N.EDINP 14:50 → SUATTDRO 14:50 → N.5E 15:17 → N.TELES 08-16 10:56
PROVIDERS: ADMIT Internal Medicine; ATTEND Family Medicine